=== PATIENT | female | born 1950 | race Caucasian/White ===

== ENCOUNTER → 2017-08-20 | Outpatient (CLI) | payer MEDICARE ==
--- NOTE | 2017-08-20 14:54 | BD ---
EXAMINATION TYPE: Axial Bone Density DATE OF EXAM: 08/20/2017 COMPARISON: NONE CLINICAL HISTORY: Height: 5 FT 1 1/4 IN Weight: 108 FRAX RISK QUESTIONS: History of Fracture in Adulthood: LT WRIST Secondary Osteoporosis: 3. Menopause before 45: YES RISK FACTORS HISTORY OF: History of Wrist Fracture: LT WRIST When: 3 YEARS AGO Postmenopausal woman: UNSURE MEDICATIONS: Additional Medications: CELEXA, RISPIDAL, Additional History: EXAM MEASUREMENTS: Bone mineral densitometry was performed using the [facility]. Bone mineral density as measured about the Lumbar spine is: ----- L1-L4(G/cm2): 0.986 T Score Values are as follows: ----- L2: -2.2 ----- L3: -1.1 ----- L4: -2.0 ----- L1-L4: -1.6 BASELINE Bone mineral density about the R hip (g/cm2): 0.905 Bone mineral density about the L hip (g/cm2): 0.812 T Score values are as follows: -----R Neck: -1.0 -----L Neck: -1.6 -----R Total: -1.7 -----L Total: -2.0 BASELINE IMPRESSION: Osteopenia (T Score between -2.5 and -1). There is slightly increased risk of fracture and the patient may be considered for treatment. Re-Screen 2-5 years. NOTE: T-SCORE=SD OF THE YOUNG ADULT MEAN.
--- NOTE | 2017-08-21 11:03 | MM ---
Reason for exam: screening (asymptomatic). Last mammogram was performed 1 year and 9 months ago. History: Patient is postmenopausal and is nulliparous. Physical Findings: A clinical breast exam by your physician is recommended on an annual basis and results should be correlated with mammographic findings. MG Screening Mammo w CAD Bilateral CC and MLO view(s) were taken. Prior study comparison: December 01, 2015, mammogram. May 11, 2014, mammogram. The breast tissue is extremely dense which could obscure a lesion on mammography. Stable benign calcifications. There is chronic nodularity bilaterally. There is no dominant lesion. No significant changes when compared with prior studies. ASSESSMENT: Benign, BI-RAD 2 RECOMMENDATION: Routine screening mammogram of both breasts in 1 year.
== END | disposition home or self-care (01) ==
LOC: RADMAMWWP 10:39
PROVIDERS: ATTEND Internal Medicine
DX: Z12.31 Encounter for screening mammogram for malignant neoplasm of breast (principal); M85.80 Other specified disorders of bone density and structure, unspecified site; Z78.0 Asymptomatic menopausal state
CPT/HCPCS: 77067; 77080

== ENCOUNTER → 2018-09-10 | Outpatient (CLI) | payer MEDICARE, BC ==
--- NOTE | 2018-09-11 10:26 | MM ---
Reason for exam: screening (asymptomatic). Last mammogram was performed 1 year and 1 month ago. History: Patient is postmenopausal and is nulliparous. Physical Findings: A clinical breast exam by your physician is recommended on an annual basis and results should be correlated with mammographic findings. MG 3D Screening Mammo W/Cad Bilateral CC and MLO view(s) were taken. Prior study comparison: August 20, 2017, bilateral MG screening mammo w CAD. December 01, 2015, mammogram. The breast tissue is heterogeneously dense. This may lower the sensitivity of mammography. There are benign appearing round dystrophic calcifications bilaterally. There is no discrete abnormality. ASSESSMENT: Benign, BI-RAD 2 RECOMMENDATION: Routine screening mammogram of both breasts in 1 year.
== END | disposition home or self-care (01) ==
LOC: RADMAMWWP 09:07
PROVIDERS: ATTEND Internal Medicine
DX: Z12.31 Encounter for screening mammogram for malignant neoplasm of breast (principal)
CPT/HCPCS: 77063; 77067

== ENCOUNTER 2019-09-17 09:12 | Observation (INO) | payer MEDICARE, BC ==
[2019-09-17] MEDS ORDERED: NITROGLYCERIN OINT 1 INCH/GM PACKET TOPICAL STA (09:32)
[2019-09-17] MEDS ORDERED: ASPIRIN 81 MG PO STA (09:32)
--- NOTE | 2019-09-17 09:34 | ED ---
General Adult HPI - General Chief complaint: Chest Pain Stated complaint: Chest pain Time Seen by Provider: 09/17/19 09:20 Source: patient, RN notes reviewed Mode of arrival: ambulatory Limitations: no limitations - History of Present Illness Initial comments: Patient is a pleasant 69-year-old female presenting to the emergency Department with chest discomfort. Symptoms have been intermittent over the past few days. Symptoms are exertional. Patient has pressure in her chest without radiation. Sometimes patient gets a little bit short of breath. No nausea or diaphoresis. No history of similar symptoms previously. No leg pain or leg swelling. Discomfort is mild at this time. - Related Data Home Medications Medication Instructions Recorded Confirmed Budesonide/Formoterol Fumarate 2 puff INHALATION RT-BID 10/13/15 10/13/15 [Symbicort 80-4.5 Mcg Inhaler] Citalopram Hydrobromide [CeleXA] 40 mg PO DAILY 10/13/15 10/13/15 risperiDONE [RisperDAL] 1 mg PO DAILY 10/13/15 10/13/15 Allergies Allergy/AdvReac Type Severity Reaction Status Date / Time clarithromycin [From Biaxin] Allergy Unknown Verified 09/17/19 09:18 Review of Systems ROS Statement: Those systems with pertinent positive or pertinent negative responses have been documented in the HPI. ROS Other: All systems not noted in ROS Statement are negative. Constitutional: Denies: fever Eyes: Denies: eye pain ENT: Denies: ear pain Respiratory: Denies: cough Cardiovascular: Reports: chest pain Endocrine: Denies: fatigue Gastrointestinal: Denies: abdominal pain, nausea Genitourinary: Denies: dysuria Musculoskeletal: Denies: back pain Skin: Denies: rash Neurological: Denies: weakness Past Medical History Past Medical History: Asthma History of Any Multi-Drug Resistant Organisms: None Reported Past Surgical History: Tubal Ligation Past Psychological History: Anxiety, Depression Smoking Status: Never smoker Past Alcohol Use History: Occasional Past Drug Use History: None Reported General Exam Limitations: no limitations General appearance: alert, in no apparent distress Head exam: Present: normocephalic Eye exam: Present: normal appearance Neck exam: Present: normal inspection Respiratory exam: Present: normal lung sounds bilaterally. Absent: chest wall tenderness Cardiovascular Exam: Present: regular rate, normal rhythm Expanded Peripheral pulses: 2+: Radial (R), Radial (L), Dorsalis Pedis (R), Dorsalis Pedis (L) GI/Abdominal exam: Present: soft. Absent: distended, tenderness Extremities exam: Present: normal inspection. Absent: pedal edema, calf tenderness Neurological exam: Present: alert Psychiatric exam: Present: normal affect, normal mood Skin exam: Present: normal color Course Vital Signs 09/17/19 09/17/19 09:14 09:58 Temperature 97.9 F Pulse Rate 102 H 105 H Respiratory 18 20 Rate Blood Pressure 147/77 140/90 O2 Sat by Pulse 98 100 Oximetry EKG Findings - EKG Comments: EKG Findings:: Sinus rhythm at 98. MI 102. QRS 90. QT 344. QTC 439. Normal axis. Normal QRS. No acute ST change. Medical Decision Making - Medical Decision Making Patient reevaluated. Patient updated. Case discussed with Dr. Reyes, who will admit covering for Dr. White - Lab Data Result diagrams: 09/17/19 09:38 09/17/19 09:38 Lab Results 09/17/19 09/17/19 09/17/19 Range/Units 09:38 09:38 09:38 WBC 8.0 (3.8-10.6) k/uL RBC 4.23 (3.80-5.40) m/uL Hgb 12.9 (11.4-16.0) gm/dL Hct 39.0 (34.0-46.0) % MCV 92.3 (80.0-100.0) fL MCH 30.6 (25.0-35.0) pg MCHC 33.2 (31.0-37.0) g/dL RDW 12.4 (11.5-15.5) % Plt Count 388 (150-450) k/uL Neutrophils % 69 % Lymphocytes % 20 % Monocytes % 7 % Eosinophils % 2 % Basophils % 0 % Neutrophils # 5.5 (1.3-7.7) k/uL Lymphocytes # 1.6 (1.0-4.8) k/uL Monocytes # 0.6 (0-1.0) k/uL Eosinophils # 0.1 (0-0.7) k/uL Basophils # 0.0 (0-0.2) k/uL PT 9.4 (9.0-12.0) sec INR 0.9 (<1.2) APTT 25.0 (22.0-30.0) sec D-Dimer 0.56 (<0.60) mg/L FEU Sodium 136 L (137-145) mmol/L Potassium 4.1 (3.5-5.1) mmol/L Chloride 104 (98-107) mmol/L Carbon Dioxide 24 (22-30) mmol/L Anion Gap 8 mmol/L BUN 10 (7-17) mg/dL Creatinine 0.83 (0.52-1.04) mg/dL Est GFR (CKD-EPI)AfAm 84 (>60 ml/min/1.73 sqM) Est GFR (CKD-EPI)NonAf 73 (>60 ml/min/1.73 sqM) Glucose 95 (74-99) mg/dL Calcium 9.6 (8.4-10.2) mg/dL Magnesium 2.1 (1.6-2.3) mg/dL Total Bilirubin 0.6 (0.2-1.3) mg/dL AST 23 (14-36) U/L ALT 11 (4-34) U/L Alkaline Phosphatase 57 (38-126) U/L Troponin I (0.000-0.034) ng/mL Total Protein 7.3 (6.3-8.2) g/dL Albumin 4.2 (3.5-5.0) g/dL 09/17/19 Range/Units 09:38 WBC (3.8-10.6) k/uL RBC (3.80-5.40) m/uL Hgb (11.4-16.0) gm/dL Hct (34.0-46.0) % MCV (80.0-100.0) fL MCH (25.0-35.0) pg MCHC (31.0-37.0) g/dL RDW (11.5-15.5) % Plt Count (150-450) k/uL Neutrophils % % Lymphocytes % % Monocytes % % Eosinophils % % Basophils % % Neutrophils # (1.3-7.7) k/uL Lymphocytes # (1.0-4.8) k/uL Monocytes # (0-1.0) k/uL Eosinophils # (0-0.7) k/uL Basophils # (0-0.2) k/uL PT (9.0-12.0) sec INR (<1.2) APTT (22.0-30.0) sec D-Dimer (<0.60) mg/L FEU Sodium (137-145) mmol/L Potassium (3.5-5.1) mmol/L Chloride (98-107) mmol/L Carbon Dioxide (22-30) mmol/L Anion Gap mmol/L BUN (7-17) mg/dL Creatinine (0.52-1.04) mg/dL Est GFR (CKD-EPI)AfAm (>60 ml/min/1.73 sqM) Est GFR (CKD-EPI)NonAf (>60 ml/min/1.73 sqM) Glucose (74-99) mg/dL Calcium (8.4-10.2) mg/dL Magnesium (1.6-2.3) mg/dL Total Bilirubin (0.2-1.3) mg/dL AST (14-36) U/L ALT (4-34) U/L Alkaline Phosphatase (38-126) U/L Troponin I <0.012 (0.000-0.034) ng/mL Total Protein (6.3-8.2) g/dL Albumin (3.5-5.0) g/dL - Radiology Data Radiology results: image reviewed (Chest x-ray shows no acute process) Disposition Clinical Impression: Chest pain Disposition: ADMITTED IP TO THIS [facility] Is patient prescribed a controlled substance at d/c from ED?: No Referrals: Diego White MD [Primary Care Provider] - 1-2 days Decision Time: 10:52
[2019-09-17 10:07] LABS: Basophils % (A) 0 %; Eosinophils # (A) 0.1 k/uL (0-0.7); Eosinophils % (A) 2 %; HGB 12.9 gm/dL (11.4-16.0); Lymphocytes # (A) 1.6 k/uL (1.0-4.8); Lymphocytes % (A) 20 %; MCH 30.6 pg (25.0-35.0); MCHC 33.2 g/dL (31.0-37.0); MCV 92.3 fL (80.0-100.0); Monocytes # (A) 0.6 k/uL (0-1.0); Monocytes % (A) 7 %; Neutrophils # (A) 5.5 k/uL (1.3-7.7); Neutrophils % (A) 69 %; Platelet Count 388 k/uL (150-450); RBC 4.23 m/uL (3.80-5.40); RDW 12.4 % (11.5-15.5)
--- NOTE | 2019-09-17 10:20 | XR ---
EXAMINATION TYPE: XR chest 2V DATE OF EXAM: 09/17/2019 COMPARISON: NONE HISTORY: Chest pain this morning. TECHNIQUE: Frontal and lateral views of the chest are obtained. FINDINGS: Overlying EKG leads are present. There is some chronic medical change without suspicious ne w focal air space opacity, pleural effusion, or pneumothorax seen. The cardiac silhouette size is wi thin normal limits. The osseous structures are somewhat demineralized. IMPRESSION: No acute process.
[2019-09-17 10:22] LABS: Albumin 4.2 g/dL (3.5-5.0); Calcium 9.6 mg/dL (8.4-10.2); Magnesium 2.1 mg/dL (1.6-2.3); Potassium 4.1 mmol/L (3.5-5.1); Total Bilirubin 0.6 mg/dL (0.2-1.3); Total Protein 7.3 g/dL (6.3-8.2)
[2019-09-17 10:37] LABS: D-Dimer 0.56 mg/L FEU (<0.60); INR 0.9 (<1.2); Prothrombin Time 9.4 sec (9.0-12.0)
[2019-09-17] MEDS ORDERED: NITROGLYCERIN SL TABS 0.4 MG TAB SUBLINGUAL PRN (10:52)
[2019-09-17] MEDS ORDERED: ALBUTEROL NEBULIZED 2.5 MG/3 ML INHALATION PRN (12:20)
[2019-09-17] MEDS ORDERED: ACETAMINOPHEN TAB 325 MG TAB PO PRN (12:21)
--- NOTE | 2019-09-17 12:32 | P.HPIM ---
History of Present Illness H&P Date: 09/17/19 Chief Complaint: Chest pain This is a 69-year-old female with past medical history noted below who presented to the emergency room with chest pain. Patient said that her pain is being going on for the past 2 or 3 days. She described her pain as intermittent and mostly exertional. Pain is in the middle of her chest with no radiation. It is associated with shortness of breath but no diaphoresis, palpitation, or presyncope. Patient denies having any cardiac history. She reported having a stress test done 2 years ago that was reported negative. She is currently chest pain-free. She was evaluated in the emergency room and 12-lead EKG showed no acute ischemic changes. Initial troponin was negative. She is currently placed on observation. Patient denies tobacco use. Review of Systems Review of system: 14 points review of systems were obtained and were negative except to what were mentioned in the HPI. Past Medical History Past Medical History: Asthma History of Any Multi-Drug Resistant Organisms: None Reported Past Surgical History: Tubal Ligation Past Psychological History: Anxiety, Depression Smoking Status: Never smoker Past Alcohol Use History: Occasional Past Drug Use History: None Reported Medications and Allergies Home Medications Medication Instructions Recorded Confirmed Type Budesonide/Formoterol Fumarate 2 puff INHALATION RT-BID 10/13/15 09/17/19 History [Symbicort 80-4.5 Mcg Inhaler] Citalopram Hydrobromide [CeleXA] 40 mg PO DAILY 10/13/15 09/17/19 History risperiDONE [RisperDAL] 1 mg PO DAILY 10/13/15 09/17/19 History Albuterol Sulfate [Proair Hfa] 2 puff INHALATION RT-Q6H PRN 09/17/19 09/17/19 History Allergies Allergy/AdvReac Type Severity Reaction Status Date / Time clarithromycin [From Biaxin] Allergy Unknown Verified 09/17/19 11:05 Physical Exam Vitals: Vital Signs Temp Pulse Resp BP Pulse Ox 09/17/19 11:00 111 H 18 134/81 100 09/17/19 10:30 105 H 18 123/70 100 09/17/19 09:58 105 H 20 140/90 100 09/17/19 09:30 105 H 18 100 09/17/19 09:14 97.9 F 102 H 18 147/77 98 Intake and Output 09/16/19 09/17/19 09/17/19 22:59 06:59 14:59 Other: Weight 46.402 kg General: The patient is awake and alert, in no distress Eye: there is normal conjunctiva bilaterally. Neck: The neck is supple, there is no JVD. Cardiovascular: Normal S1-S2, no S3-S4, no murmurs. Respiratory: Lungs clear to auscultation bilaterally Gastrointestinal: Abdomen is soft, nontender Musculoskeletal: There is no pedal edema. Neurological:. Speech is normal. Skin: Skin is warm and dry Results CBC & Chem 7: 09/17/19 09:38 09/17/19 09:38 Labs: Abnormal Lab Results - Last 24 Hours (Table) 09/17/19 Range/Units 09:38 Sodium 136 L (137-145) mmol/L Assessment and Plan Assessment: 1. Chest pain, with typical and atypical features. 12 leads EKG in the ER showed no acute ischemic changes. Initial troponin is negative. We will c ontinue telemetry monitoring. Trend troponin. Cardiology consulted in the ER. May consider cardiac stress testing in the morning. 2. Hyperlipidemia, diet controlled. I would check fasting lipid profile in the morning 3. Underlying asthma, with no evidence of exacerbation 4. DVT prophylaxis with subcu heparin
[2019-09-17] MEDS: NITROGLYCERIN OINT 1 INCH/GM PACKET TOPICAL SCH ×2 (12:34→17:49)
--- NOTE | 2019-09-17 13:17 | P.CRDCN ---
History of Present Illness History of present illness: HISTORY OF PRESENTING ILLNESS This is a pleasant 69-year-old female past medical history significant for asthma, gastroesophageal reflux disease, anxiety and depression. She denies prior history of coronary artery disease and does not follow in the office with a header up. We have been asked to see in consultation for chest pain. She presented to Dr. White's office today complaining of chest discomfort that has been going on for the past couple of days. She states she is feeling a sharp stabbing pain in the midsternal region intermittently it is not associated with exertion or activity. The pain is mildly exacerbated by deep inspiration or cough. She denies productive cough or fever home. She also has some associated shortness of breath that is worsened by exertion. She denies palpitations, dizziness, nausea, vomiting or diaphoresis. She is extremely anxious and agitated during my exam. She is very tearful and scared of being in the hospital. DIAGNOSTICS EKG reveals sinus mechanism heart rate of 98 with no evidence of ischemic abnormality. Chest xray negative for an acute cardiopulmonary process. Laboratory reviewed, CBC unremarkable, d-dimer 0.56, sodium 136, potassium 4.1, creatinine 0.83, magnesium 2.1, cardiac enzymes negative 1, NT proBNP 33. She takes no daily cardiac medications. REVIEW OF SYSTEMS At the time of my exam: CONSTITUTIONAL: Denies fever or chills. CARDIOVASCULAR: Denies chest pain, shortness of breath, orthopnea, PND or palpitations. RESPIRATORY: Denies cough. GASTROINTESTINAL: Denies abdominal pain, diarrhea, constipation, nausea or vomiting. MUSCULOSKELETAL: Denies myalgias. NEUROLOGIC: Denies numbness, tingling or weakness. ENDOCRINE: Denies fatigue, weight change, polydipsia or polyurina. GENITOURINARY: Denies burning, hematuria or urgency with micturation. HEMATOLOGIC: Denies history of anemia or bleeding. PHYSICAL EXAMINATION Blood pressure 134/81 heart rate 111 afebrile and maintaining oxygen saturation on room air. CONSTITUTIONAL: No apparent distress. Frail. HEENT: Head is normocephalic. Pupils are equal, round. Sclerae anicteric. Mucous membranes of the mouth are moist. No JVD. No carotid bruit. CHEST EXAMINATION: Lungs are clear to auscultation. No chest wall tenderness is noted on palpation or with deep breathing. HEART EXAMINATION: Regular rate and rhythm. S1, S2 heard. No murmurs, gallops or rub. ABDOMEN: Soft, nontender. Positive bowel sounds. EXTREMITIES: 2+ peripheral pulses, no lower extremity edema and no calf tenderness. NEUROLOGIC EXAMINATION: Patient is awake, alert and oriented x3. ASSESSMENT Chest pain, atypical for angina. Exertional shortness of breath History of asthma Gastroesophageal reflux disease Anxiety Impression PLAN Continue to obtain serial cardiac enzymes to rule out an acute event. Obtain 2D echocardiogram and doppler study to assess cardiac structure and function. Check TSH. If enzymes are normal we will proceed with stress echocardiogram in the morning. Give protonix to assess for relief of pain. Thank you kindly for this consultation. Nurse Practitioner note has been reviewed, I agree with a documented findings and plan of care. Patient was seen and examined. Past Medical History Past Medical History: Asthma, GERD/Reflux, Pneumonia Additional Past Medical History / Comment(s): Bronchitis, small hiatal hernia, constipation, IBS, occasional UTIs, chronic back pain. History of Any Multi-Drug Resistant Organisms: None Reported Past Surgical History: Tonsillectomy, Tubal Ligation Additional Past Surgical History / Comment(s): EGD, colonoscopies Past Anesthesia/Blood Transfusion Reactions: No Reported Reaction Smoking Status: Never smoker - Past Family History Mother History Unknown: Yes Additional Family Medical History / Comment(s): Mother is Father History Unknown: Yes Additional Family Medical History / Comment(s): Father is . Medications and Allergies Home Medications Medication Instructions Recorded Confirmed Type Budesonide/Formoterol Fumarate 2 puff INHALATION RT-BID 10/13/15 09/17/19 History [Symbicort 80-4.5 Mcg Inhaler] Citalopram Hydrobromide [CeleXA] 40 mg PO DAILY 10/13/15 09/17/19 History risperiDONE [RisperDAL] 1 mg PO DAILY 10/13/15 09/17/19 History Albuterol Sulfate [Proair Hfa] 2 puff INHALATION RT-Q6H PRN 09/17/19 09/17/19 History Allergies Allergy/AdvReac Type Severity Reaction Status Date / Time clarithromycin [From Biaxin] Allergy Unknown Verified 09/17/19 11:05 Physical Exam Vitals: Vital Signs Temp Pulse Resp BP Pulse Ox 09/17/19 11:00 111 H 18 134/81 100 09/17/19 10:30 105 H 18 123/70 100 09/17/19 09:58 105 H 20 140/90 100 09/17/19 09:30 105 H 18 100 09/17/19 09:14 97.9 F 102 H 18 147/77 98 Intake and Output 09/16/19 09/17/19 09/17/19 22:59 06:59 14:59 Other: Weight 46.402 kg Results 09/17/19 09:38 09/17/19 09:38 Cardiac Enzymes 09/17/19 09/17/19 Range/Units 09:38 09:38 AST 23 (14-36) U/L Troponin I <0.012 (0.000-0.034) ng/mL Coagulation 09/17/19 Range/Units 09:38 PT 9.4 (9.0-12.0) sec APTT 25.0 (22.0-30.0) sec CBC 09/17/19 Range/Units 09:38 WBC 8.0 (3.8-10.6) k/uL RBC 4.23 (3.80-5.40) m/uL Hgb 12.9 (11.4-16.0) gm/dL Hct 39.0 (34.0-46.0) % Plt Count 388 (150-450) k/uL Comprehensive Metabolic Panel 09/17/19 Range/Units 09:38 Sodium 136 L (137-145) mmol/L Potassium 4.1 (3.5-5.1) mmol/L Chloride 104 (98-107) mmol/L Carbon Dioxide 24 (22-30) mmol/L BUN 10 (7-17) mg/dL Creatinine 0.83 (0.52-1.04) mg/dL Glucose 95 (74-99) mg/dL Calcium 9.6 (8.4-10.2) mg/dL AST 23 (14-36) U/L ALT 11 (4-34) U/L Alkaline Phosphatase 57 (38-126) U/L Total Protein 7.3 (6.3-8.2) g/dL Albumin 4.2 (3.5-5.0) g/dL Current Medications Generic Name Dose Route Start Last Admin Trade Name Freq PRN Reason Stop Dose Admin Acetaminophen 650 mg 09/17/19 12:21 Tylenol Tab PO Q6HR PRN Fever and/ or Pain Albuterol Sulfate 2.5 mg 09/17/19 12:20 Ventolin Nebulized INHALATION RT-Q6H PRN Shortness Of Breath Aspirin 325 mg 09/18/19 09:00 Aspirin PO DAILY [facility] Budesonide/Formoterol Fumarate 2 puff 09/17/19 20:00 Symbicort 80-4.5 Mcg Inhaler INHALATION RT-BID [facility] Citalopram Hydrobromide 40 mg 09/18/19 09:00 Celexa PO DAILY [facility] Heparin Sodium (Porcine) 5,000 unit 09/17/19 21:00 Heparin SQ Q12HR [facility] Nitroglycerin 0.4 mg 09/17/19 10:52 Nitrostat SUBLINGUAL Q5M PRN Chest Pain Nitroglycerin 0.5 inch 09/17/19 12:00 09/17/19 12:34 Nitro-Bid Oint TOPICAL Not Given Q6HR [facility] Risperidone 1 mg 09/18/19 09:00 Risperdal PO DAILY [facility] Intake and Output 09/16/19 09/17/19 09/17/19 22:59 06:59 14:59 Other: Weight 46.402 kg Patient Weight 09/18/19 06:59 Weight 46.402 kg 09/17/19 09:38 09/17/19 09:38
[2019-09-17] MEDS: PANTOPRAZOLE 40 MG TABLET PO SCH (14:29)
[2019-09-17 15:25] VITALS: BMI 18.7
[2019-09-17] MEDS: SYMBICORT 80-4.5 MCG INHALER INHALATION SCH (20:39)
[2019-09-17] MEDS: HEPARIN SODIUM,PORCINE 5,000 UNIT/ML 1 ML VIAL SQ SCH (21:18)
[2019-09-18] MEDS: NITROGLYCERIN OINT 1 INCH/GM PACKET TOPICAL SCH ×3 (00:43→13:03)
[2019-09-18 02:49] LABS: Cholesterol 161 mg/dL (<200); HDL Cholesterol 55 mg/dL (40-60); LDL Cholesterol,Calculated 86 mg/dL (0-99); Triglycerides 99 mg/dL (<150)
[2019-09-18] MEDS: SYMBICORT 80-4.5 MCG INHALER INHALATION SCH (07:39)
[2019-09-18] MEDS: PANTOPRAZOLE 40 MG TABLET PO SCH (08:44)
[2019-09-18] MEDS: HEPARIN SODIUM,PORCINE 5,000 UNIT/ML 1 ML VIAL SQ SCH (08:45)
[2019-09-18] MEDS ORDERED: ASPIRIN 81 MG PO SCH (09:00)
[2019-09-18] MEDS ORDERED: risperiDONE 1 MG TAB PO SCH (09:00)
[2019-09-18] MEDS ORDERED: ASPIRIN 325 MG TAB PO SCH (09:00)
[2019-09-18] MEDS ORDERED: CITALOPRAM HYDROBROMIDE 20 MG TAB PO SCH (09:00)
--- NOTE | 2019-09-18 10:49 | ECHOF ---
Referral Reason:cp, exertional sob MEASUREMENTS -------- HEIGHT: 157.5 cm WEIGHT: 46.3 kg BP: IVSd: 1.6 cm (0.6 - 1.1) LVIDd: 2.8 cm (3.9 - 5.3) LVPWd: 1.4 cm (0.6 - 1.1) IVSs: 1.8 cm LVIDs: 1.8 cm LVPWs: 1.9 cm LAESV Index (A-L): 16.74 ml/m Ao Diam: 3.2 cm (2.0 - 3.7) AV Cusp: 1.9 cm (1.5 - 2.6) MV EXCURSION: 18.525 mm (> 18.000) MV EF SLOPE: 57 mm/s (70 - 150) EPSS: 0.3 cm MV E Leonel: 0.69 m/s MV DecT: 253 ms MV A Leonel: 0.94 m/s MV E/A Ratio: 0.73 RAP: 5.00 mmHg RVSP: 29.14 mmHg FINDINGS -------- This was a technically adequate study. The left ventricular size is normal. There is moderate concentric left ventricular hypertrophy. O verall left ventricular systolic function is normal with, an EF between 55 - 60 %. The diastolic fi lling pattern is normal for the age of the patient 13.37. The right ventricle is normal in size. Normal LA size by volume 22+/-6 ml/m2. The right atrial size is normal. Interatrial and interventricular septum intact. The aortic valve is trileaflet and appears structurally normal. There is no evidence of aortic regu rgitation. There is no evidence of aortic stenosis. No mitral regurgitation. Mild tricuspid regurgitation present. There is no evidence of pulmonary hypertension. The right v entricular systolic pressure, as measured by Doppler, is 29.14mmHg. There is no pulmonic regurgitation present. The aortic root size is normal. IVC Not well visulized. There is no pericardial effusion. CONCLUSIONS -------- 1. This was a technically adequate study. 2. The left ventricular size is normal. 3. There is moderate concentric left ventricular hypertrophy. 4. Overall left ventricular systolic function is normal with, an EF between 55 - 60 %. 5. The diastolic filling pattern is normal for the age of the patient 13.37 6. The right ventricle is normal in size. 7. Normal LA size by volume 22+/-6 ml/m2. 8. The right atrial size is normal. 9. Interatrial and interventricular septum intact. 10. The aortic valve is trileaflet and appears structurally normal. 11. There is no evidence of aortic regurgitation. 12. There is no evidence of aortic stenosis. 13. No mitral regurgitation. 14. Mild tricuspid regurgitation present. 15. There is no evidence of pulmonary hypertension. 16. The right ventricular systolic pressure, as measured by Doppler, is 29.14mmHg. 17. There is no pulmonic regurgitation present. 18. The aortic root size is normal. 19. IVC Not well visulized. 20. There is no pericardial effusion. LEAD OPERATOR: Nemo Higgins RDCS
[2019-09-18 12:59] VITALS: BP 130/58; PULSE 92; RESP 18; TEMP 98.1
--- NOTE | 2019-09-18 13:15 | P.STRESS ---
- Stress Test Note Stress Test Results/Findings: Exam Performed: stress echo exercise Exam Date: 09/18/19 Reason for Exam: Chest Pain Height: 5 ft 2 in Weight: 44.7 kg Protocol: Kenneth with modification Stage: 2 Duration of Exercise: 4:11 Resting Heart Rate: 93 Resting Blood Pressure: 111/65 Maximum Achieved Heart Rate: 132 Maximum Achieved Blood Pressure: 158/78 85% PMHR: 129 100% PMHR: 152 METS: 5.4 Technologist Comment: Stress Test Results/Findings: This is a 69-year-old female was admitted to the hospital with chest pains and shortness of breath, being evaluated for cardiac status. Stress data: Baseline EKG shows sinus rhythm with normal TN and cardiac catheterization with nonspecific ST-T changes. Patient workup was protocol for about 4 minutes and 18 seconds achieving a maximum heart rate of 132 with a peak blood pressure 158/78. EKGs taken during exercise and exercise showed continued nonspecific ST-T changes. Echo data: Baseline echo images showed normal wall motion and thickening. Exercise echo images showed augmentation of wall motion and thickening in all segments. Final impression: #1. Nondiagnostic stress test because of baseline EKG abnormalities. #2. Negative stress echo
--- NOTE | 2019-09-18 14:18 | ECHOS ---
Stress Test Results/Findings: Exam Performed: stress echo exercise Exam Date: 09/18/19 Reason for Exam: Chest Pain Height: 5 ft 2 in Weight: 44.7 kg Protocol: Kenneth with modification Stage: 2 Duration of Exercise: 4:11 Resting Heart Rate: 93 Resting Blood Pressure: 111/65 Maximum Achieved Heart Rate: 132 Maximum Achieved Blood Pressure: 158/78 85% PMHR: 129 100% PMHR: 152 METS: 5.4 Technologist Comment: Stress Test Results/Findings: This is a 69-year-old female was admitted to the hospital with chest pains and shortness of breath, being evaluated for cardiac status. Stress data: Baseline EKG shows sinus rhythm with normal PA and cardiac catheterization with nonspecific ST-T changes. Patient workup was protocol for about 4 minutes and 18 seconds achieving a maximum heart rate of 132 with a peak blood pressure 158/78. EKGs taken during exercise and exercise showed continued nonspecific ST-T changes. Echo data: Baseline echo images showed normal wall motion and thickening. Exercise echo images showed augmentation of wall motion and thickening in all segments. Final impression: #1. Nondiagnostic stress test because of baseline EKG abnormalities. #2. Negative stress echo MTDD
--- NOTE | 2019-09-18 15:36 | P.PN ---
Subjective Progress Note Date: 09/18/19 This patient is admitted to the hospital with chest pain and shortness of breath. Had a stress echo cardiogram today. The stress test is negative for ischemia. Patient could be discharged home. Follow-up as an outpatient Objective - Vital Signs Vital signs: Vital Signs Temp 98.1 F 09/18/19 12:00 Pulse 92 09/18/19 12:00 Resp 18 09/18/19 12:00 BP 130/58 09/18/19 12:00 Pulse Ox 97 09/18/19 12:00 Intake & Output 09/17/19 09/18/19 09/18/19 18:59 06:59 18:59 Intake Total 250 Balance 250 Weight 46.402 kg 44.7 kg Intake: Oral 250 Other: Voiding Method Toilet Toilet # Voids 0 1 1 # Bowel Movements 1 - Exam GENERAL EXAM: Patient is alert and oriented and doesn't appear to be in any acute distress HEENT: Normocephalic. Normal reaction of pupils, equal size, normal range of extraocular motion. No erythema or exudates in the throat. NECK: No masses, no nuchal rigidity. CHEST: No chest wall deformity. LUNGS: Equal air entry with no crackles or wheeze. HEART: S1 and S2 normal with no audible mumurs or gallops. Regular rhythm, femorals equal on both sides.. ABDOMEN: No hepatosplenomegaly, normal bowel sounds, no guarding or rigidity. SKIN: No rashes CENTRAL NERVOUS SYSTEM: No focal deficits. EXTREMITIES: [No cyanosis, clubbing or edema.] - Labs CBC & Chem 7: 09/17/19 09:38 09/17/19 09:38 Assessment and Plan (1) Chest pain Current Visit: Yes Status: Acute Code(s): R07.9 - CHEST PAIN, UNSPECIFIED SNOMED Code(s): 54312684 Plan: Patient is currently stable. Stress echo is negative. From Cardec standpoint patient could be discharged home
--- NOTE | 2019-09-18 15:52 | P.DS ---
Providers Date of admission: 09/17/19 10:52 Expected date of discharge: 09/18/19 Attending physician: Nathan Courtney Consults: 09/17/19 10:52 Consult Physician Urgent Consulting Provider: Anthony Zaidi Consult Reason/Comments: cp Do you want consulting provider notified?: Yes Primary care physician: Diego [facility] Course: The patient is a 69-year-old female with a PMH of asthma who presented to the ED with complaints of chest pain. The patient had reported the pain was ongoing for 2 or 3 days, was intermittent, exertional, in the center of her chest, nonradiating. The patient also reported associated shortness of breath though had denied palpitations, or diaphoresis. The patient was subsequently admitted to the observation unit with cardiology on consult. She underwent a stress echocardiogram which was negative for ischemia. She was subsequently cleared by cardiology for discharge. She was seen and evaluated at the bedside on the day of discharge. She reported only minimal of substernal sharp pleuritic pain and denied pain at rest or exertional pain. She also denied any additional complaints including shortness of breath, nausea, vomiting, diaphoresis, or dizziness. She is ready and agreeable for discharge to home. Physical Examination General: Non-toxic, in no acute distress, appears stated age, normal weight HEENT: NC/AT, anicteric sclerae, moist conjunctiva, no lid-lag, PERRLA Cardiovascular: S1/S2 wnl, no murmurs, rubs, or gallops Lungs: Clear to auscultation, normal respiratory effort, no accessory muscle use Abdominal: Soft, non-tender, non-distended, no guarding, rebound, or rigidity Skin: Warm, dry Extremities: No edema or contractures Psychiatric: Alert and oriented to person, place and time, appropriate affect Neuro: CN II-XII grossly intact, Strength 5/5 in all 4 extremities, Speech intact, Sensation to light touch grossly intact throughout Discharge diagnosis: Atypical chest pain with negative stress echocardiogram; hyperlipidemia; asthma; history of anxiety and depression A total of 30 minutes of time were spent preparing this complex discharge summary. Patient Condition at Discharge: Stable Plan - Discharge Summary Discharge Rx Participant: No New Discharge Prescriptions: Continue risperiDONE [RisperDAL] 1 mg PO DAILY Citalopram Hydrobromide [CeleXA] 40 mg PO DAILY Budesonide/Formoterol Fumarate [Symbicort 80-4.5 Mcg Inhaler] 2 puff INHALATION RT-BID Albuterol Sulfate [Proair Hfa] 2 puff INHALATION RT-Q6H PRN PRN Reason: Shortness Of Breath Discharge Medication List Budesonide/Formoterol Fumarate [Symbicort 80-4.5 Mcg Inhaler] 2 puff INHALATION RT-BID 10/13/15 [History] Citalopram Hydrobromide [CeleXA] 40 mg PO DAILY 10/13/15 [History] risperiDONE [RisperDAL] 1 mg PO DAILY 10/13/15 [History] Albuterol Sulfate [Proair Hfa] 2 puff INHALATION RT-Q6H PRN 09/17/19 [History] Follow up Appointment(s)/Referral(s): Diego White MD [Primary Care Provider] - 1-2 days Discharge Disposition: HOME SELF-CARE
== END 2019-09-18 16:34 | disposition home or self-care (01) ==
LOC: EC 09:12 → 1SOBS 10:52
PROVIDERS: ADMIT Internal Medicine; ATTEND Internal Medicine
DX: R07.89 Other chest pain (principal); R07.81 Pleurodynia; R45.1 Restlessness and agitation; J45.909 Unspecified asthma, uncomplicated; F41.9 Anxiety disorder, unspecified; F32.9 Major depressive disorder, single episode, unspecified; E78.5 Hyperlipidemia, unspecified; K59.00 Constipation, unspecified; K58.1 Irritable bowel syndrome with constipation; G89.29 Other chronic pain; M54.9 Dorsalgia, unspecified; K21.9 Gastro-esophageal reflux disease without esophagitis; Z79.51 Long term (current) use of inhaled steroids; Z79.899 Other long term (current) drug therapy; Z88.1 Allergy status to other antibiotic agents; Z87.01 Personal history of pneumonia (recurrent); Z87.09 Personal history of other diseases of the respiratory system; Z87.440 Personal history of urinary (tract) infections; Z20.828 Contact with and (suspected) exposure to other viral communicable diseases
CPT/HCPCS: 96372 ×2; 99285; 36415; 94640 ×2; 93005 ×2; 93306; 93351; 85379; 83880; 80061; 80053; 84443; 83735; 84484; 85025; 85610; 85730; 71046; G0378 ×2; U0003; J1644 ×2

== ENCOUNTER → 2020-02-03 | Outpatient (CLI) | payer MEDICARE, BC ==
--- NOTE | 2020-02-03 12:29 | CT ---
EXAMINATION TYPE: CT brain cspine wo con DATE OF EXAM: 02/03/2020 COMPARISON: NONE HISTORY: Osteoarthritis. Headache. CT DLP: 1299 mGycm. Automated Exposure Control for Dose Reduction was Utilized. TECHNIQUE: CT scan of the head and cervical spine are performed without contrast. FINDINGS: There is no acute intracranial hemorrhage or midline shift identified. Diffuse ventricula r and sulcal prominence. Mild low-attenuation in the periventricular white matter. The globes are in tact and the visualized sinuses are clear. Overlying oxygen nasal cannula noted. Patchy cerumen in th e left external auditory canal. Cervical spine is visualized in its entirety from C1 through upper thoracic levels and demonstrates s light dextroconvexed scoliotic curvature centered lower cervical spine and reactive levoconvex scolio tic curvature in the visualized thoracic spine without evidence of acute fracture or dislocation. Pr evertebral soft tissue appears within normal limits. The C1-C2 articulation is within normal limits on the coronal images. Slight grade 1 retrolisthesis C5 on C6. Mild to moderate disc space narrowing and spurring at C5-C6 level. Posterior spurring effaces anterior thecal sac at this level. Review of axial images shows additional marginal spurring at C5-C6 level contributing to moderate left and mild right-sided neural foraminal narrowing. Other cervical levels felt within normal limits. Lung apices show incidental azygos lobe/fissure and 4 x 2 mm scar or scarlike opacity left upper lung axial imag e 80. IMPRESSION: 1. There is spondylolisthesis and fairly moderate degenerative change C5-C6 level as detailed above. 2. Mild diffuse cerebral atrophy and chronic small vessel ischemic change.
--- NOTE | 2020-02-03 12:32 | CT ---
EXAMINATION TYPE: CT thor lumbar spine wo con DATE OF EXAM: 02/03/2020 COMPARISON: None. HISTORY: Osteoarthritis. Mid and low back pain. CT DLP: 588.7 mGycm Automated exposure control for dose reduction was used. CT of the thoracic and lumbar spine are perfo rmed without contrast. FINDINGS: There are 5 lumbar-type vertebra. Alignment in the thoracic and lumbar spine is fairly well maintaine d. Vertebral body heights and disc space heights are preserved. Spinal canal is grossly preserved. No significant spurring is present. No acute fracture or dislocation. Axial images in the thoracic spine show no large disc herniation or significant spinal canal effaceme nt at any level. Review of axial images shows mild broad disc bulge and facet arthropathy L3-L4 level mildly effacing the anterior thecal sac. Axial images at L4-L5 level show mild/moderate broad-based posterior disc protrusion and mild/moderat e facet arthropathy bilaterally mildly effacing the anterior thecal sac, there is mild bilateral ante rior inferior neural foraminal narrowing. Axial images at L5-S1 level show mild to moderate facet arthropathy. There is focal central disc prot rusion but spinal canal is preserved. Patent bilateral neural foramina. Scattered diverticula are seen in the visualized colon. There is focal small to moderate size hiatal hernia present. IMPRESSION: Some [id number] multilevel degenerative changes in the mid to lower lumbar spine.
== END | disposition home or self-care (01) ==
LOC: RADCTMAIN 11:33
PROVIDERS: ATTEND Internal Medicine
DX: R51.9 Headache, unspecified (principal); M19.90 Unspecified osteoarthritis, unspecified site; W19.XXXA Unspecified fall, initial encounter; M43.12 Spondylolisthesis, cervical region; I67.82 Cerebral ischemia
CPT/HCPCS: 70450; 72125; 72128; 72131

== ENCOUNTER → 2020-05-03 | Outpatient (CLI) | payer MEDICARE, BC | END | disposition home or self-care (01) | LOC: LABWHC1 15:37 | PROVIDERS: ATTEND Internal Medicine | DX: Z20.822 Contact with and (suspected) exposure to COVID-19 (principal) | CPT/HCPCS: U0003; C9803 ==

== ENCOUNTER → 2020-08-01 | Outpatient (CLI) | payer MEDICARE, BC ==
--- NOTE | 2020-08-01 14:08 | US ---
EXAMINATION TYPE: US carotid duplex BILAT DATE OF EXAM: 08/01/2020 COMPARISON: NONE CLINICAL HISTORY: R55 DIZZINESS. EXAM MEASUREMENTS: RIGHT: Peak Systolic Velocity (PSV) cm/sec ----- Right CCA: 91.1 ----- Right ICA: 88.2 ----- Right ECA: 68.9 ICA/CCA ratio: 0.96 RIGHT: End Diastole cm/sec ----- Right CCA: 29.9 ----- Right ICA: 30.6 ----- Right ECA: 13.7 LEFT: Peak Systolic Velocity (PSV) cm/sec ----- Left CCA: 88.8 ----- Left ICA: 83.5 ----- Left ECA: 73.2 ICA/CCA ratio: 0.94 LEFT: End Diastole cm/sec ----- Left CCA: 22.6 ----- Left ICA: 29.9 ----- Left ECA: 11.5 VERTEBRALS (direction of flow): Right Vertebral: Antegrade Left Vertebral: Antegrade Rhythm: Normal No obvious atherosclerotic changes with no significant velocity elevations. IMPRESSION: 1. No significant hemodynamic stenosis. Criteria for Assigning % of Stenosis / Diameter reduction (Estimation based on the indirect measurements of the internal carotid artery velocities (ICA PSV). 1. Normal (no stenosis)=ICA PSV < 125 cm/s: ratio < 2.0: ICA EDV<40 cm/s. 2. Less than 50% stenosis=ICA PSV < 125 cm/s: ratio < 2.0: ICA EDV<40 cm/s. 3. 50 to 69% stenosis=ICA PSV of 125 to 230 cm/s: ration 2.0 ? 4.0: ICA EDV 40-100 cm/s. 4. Greater than 70% stenosis to near occlusion= ICA PSV > 230 cm/s: ratio > 4.0: ICA EDV > 100 cm/s. 5. Near occlusion= ICA PSV velocities may be low or undetectable: variable ratio and ICA EDV. 6. Total occlusion=unable to detect flow.
--- NOTE | 2020-08-01 14:55 | CT ---
EXAMINATION TYPE: CT brain wo con DATE OF EXAM: 08/01/2020 COMPARISON: 02/03/2020 HISTORY: dizziness CT DLP: 926.5 mGycm Automated exposure control for dose reduction was used. FINDINGS: Generalized degenerative change of the greater frontal lobe component. Low-attenuation the white lakshmi er is nonspecific but most typical remote white matter ischemia. There is slightly greater central di lation of the ventricular system. Tiny remote lacunar infarct involving the right basal ganglia. Calvarium intact. Craniocervical junction maintained. Orbits are symmetric. No significant changes of sinusitis IMPRESSION: 1. Degenerative and nonspecific white matter change of the greater frontal lobe component. There also slightly greater central component correlate clinically to exclude normal pressure hydrocephalus. 2. Low-attenuation the white matter most typical remote white matter ischemia.
--- NOTE | 2020-08-02 07:47 | ECHOF ---
Referral Reason:R55.9 dizziness MEASUREMENTS -------- HEIGHT: 157.5 cm WEIGHT: 43.5 kg BP: 124/72 RVIDd: 2.7 cm (< 3.3) IVSd: 1.0 cm (0.6 - 1.1) LVIDd: 3.7 cm (3.9 - 5.3) LVPWd: 0.8 cm (0.6 - 1.1) IVSs: 1.6 cm LVIDs: 2.0 cm LVPWs: 1.4 cm LA Diam: 2.6 cm (2.7 - 3.8) LAESV Index (A-L): 13.06 ml/m Ao Diam: 2.8 cm (2.0 - 3.7) AV Cusp: 1.7 cm (1.5 - 2.6) MV EXCURSION: 16.074 mm (> 18.000) MV EF SLOPE: 93 mm/s (70 - 150) EPSS: 1.3 cm MV E Leonel: 0.74 m/s MV DecT: 217 ms MV A Leonel: 1.00 m/s MV E/A Ratio: 0.74 RAP: 5.00 mmHg RVSP: 20.18 mmHg FINDINGS -------- Sinus rhythm. This was a technically adequate study. The left ventricular size is normal. Left ventricular wall thickness is normal. Overall left vent ricular systolic function is normal with, an EF between 55 - 60 %. The diastolic filling pattern is normal for the age of the patient 9.13. The right ventricle is normal in size. Normal LA size by volume 22+/-6 ml/m2. The right atrial size is normal. Interatrial and interventricular septum intact. The aortic valve is trileaflet, and appears structurally normal. No aortic stenosis or regurgitation. The mitral valve is normal. Mild mitral regurgitation is present. The tricuspid valve appears structurally normal. Mild tricuspid regurgitation present. Right vent ricular systolic pressure is normal at < 35 mmHg. There is no pulmonic regurgitation present. The aortic root size is normal. Normal inferior vena cava with normal inspiratory collapse consistent with estimated right atrial pre ssure of 5 mmHg. There is no pericardial effusion. CONCLUSIONS -------- 1. Left ventricular wall thickness is normal. 2. Overall left ventricular systolic function is normal with, an EF between 55 - 60 %. 3. Normal LA size by volume 22+/-6 ml/m2. 4. The aortic valve is trileaflet, and appears structurally normal. No aortic stenosis or regurgitati on. 5. Mild mitral regurgitation is present. 6. Mild tricuspid regurgitation present. 7. There is no pericardial effusion. PUNCH OPERATOR: Margarette Toro RDCS
== END | disposition home or self-care (01) ==
LOC: RADUSWWP 13:20
PROVIDERS: ATTEND Internal Medicine
DX: I67.82 Cerebral ischemia (principal); R90.82 White matter disease, unspecified
CPT/HCPCS: 70450; 93306; 93880

== ENCOUNTER → 2021-02-21 | Outpatient (CLI) | payer MEDICARE, BC ==
--- NOTE | 2021-02-22 10:35 | MM ---
Reason for exam: screening (asymptomatic). Last mammogram was performed 2 years and 5 months ago. History: Patient is postmenopausal and is nulliparous. Physical Findings: A clinical breast exam by your physician is recommended on an annual basis and results should be correlated with mammographic findings. MG 3D Screening Mammo W/Cad Bilateral CC and MLO view(s) were taken. Prior study comparison: September 10, 2018, bilateral MG 3d screening mammo w/cad. August 20, 2017, bilateral MG screening mammo w CAD. The breast tissue is heterogeneously dense. This may lower the sensitivity of mammography. Stable benign calcifications. There is no discrete abnormality. No significant changes when compared with prior studies. ASSESSMENT: Benign, BI-RAD 2 RECOMMENDATION: Routine screening mammogram of both breasts in 1 year.
== END | disposition home or self-care (01) ==
LOC: RADMAMWWP 09:11
PROVIDERS: ATTEND Internal Medicine
DX: Z12.31 Encounter for screening mammogram for malignant neoplasm of breast (principal)
CPT/HCPCS: 77063; 77067

== ENCOUNTER → 2021-03-22 | Outpatient (CLI) | payer MEDICARE, BC ==
--- NOTE | 2021-03-22 20:01 | BD ---
EXAMINATION TYPE: Axial Bone Density DATE OF EXAM: 03/22/2021 COMPARISON: 2018 CLINICAL HISTORY: Postmenopausal screening Height: 62 Weight: 104.2 FRAX RISK QUESTIONS: Alcohol (3 or more units per day): no Family History (Parent hip fracture): no Glucocorticoids (More than 3mos): no (Ex: prednisone, prednisolone, methylprednisolone, dexamethasone, and hydrocortisone). History of Fracture in Adulthood: yes Secondary Osteoporosis: 1. Type 1 Diabetes: no 2. Hyperthyroidism: no 3. Menopause before 45: no 4. Malnutrition: no 5. Chronic liver disease: no Rheumatoid Arthritis: no Current Tobacco Use: RISK FACTORS HISTORY OF: Surgery to Spine/Hip(right/left)/Wrist (right/left): no Family History of Osteoporosis: no Active: yes Diet low in dairy products/other sources of calcium: yes Postmenopausal woman: yes Lost more than 2 inches in height since high school: no MEDICATIONS: Celexa, Respinol Additional History: EXAM MEASUREMENTS: Bone mineral densitometry was performed using the [employer] System. Bone mineral density as measured about the Lumbar spine is: ----- L1-L4(G/cm2): 0.961 T Score Values are as follows: ----- L2: -2.1 ----- L3: -1.7 ----- L4: -1.9 ----- L1-L4: -1.8 Bone mineral density has: decreased -1.7 % since study of: 08.20.2017 Bone mineral density about the R hip (g/cm2): 0.776 Bone mineral density about the L hip (g/cm2): 0.747 T Score values are as follows: -----R Neck: -1.9 -----L Neck: -2.1 -----R Total: -2.2 -----L Total: -2.3 Bone mineral density has: decreased -6.6 % since study of: 08.20.2017 IMPRESSION: Osteopenia (T Score between -2.5 and -1). There is slightly increased risk of fracture and the patient may be considered for treatment. Re-Screen 2-5 years. NOTE: T-SCORE=SD OF THE YOUNG ADULT MEAN.
== END | disposition home or self-care (01) ==
LOC: LABWHC1 13:07
PROVIDERS: ATTEND Internal Medicine
DX: Z78.0 Asymptomatic menopausal state (principal)
CPT/HCPCS: 77080

== ENCOUNTER → 2021-10-19 | Outpatient (CLI) | payer MEDICARE, BC ==
--- NOTE | 2021-10-26 10:57 | HM ---
HOLTER MONITOR REPORT 48 HOUR HOLTER REPORT: There was no diary provided with this recording. Predominant rhythm appears to be sinus with a heart rate ranging from 61 to 113 beats per minute with average heart rate of 79 beats per minute. There is 1 short run of 5- beat PAT noted. No significant ventricular ectopic beats were noted. There was no evidence of any significant bradyarrhythmia. FINAL IMPRESSION: No diary was provided, presumably no symptoms. Predominant rhythm is sinus with average heart rate of 61 beats per minute with 1 short run of PAT that occurred at 11:06 pm. No symptoms were reported. No significant ventricular ectopy or bradyarrhythmia. MMODL / IJN: [id number] /
== END | disposition home or self-care (01) ==
LOC: RADECHMAIN 11:49
PROVIDERS: ATTEND Psychiatry & Neurology Neurology
DX: R55 Syncope and collapse (principal); I49.9 Cardiac arrhythmia, unspecified
CPT/HCPCS: 93225; 93226

== ENCOUNTER → 2021-11-29 | Outpatient (CLI) | payer MEDICARE, BC ==
--- NOTE | 2021-11-29 12:21 | MR ---
EXAMINATION TYPE: MR brain wo/w con DATE OF EXAM: 11/29/2021 11:33 AM COMPARISON: NONE HISTORY: Syncope, Abnormal EEG CONTRAST: Patient received 4.5 mL intravenous Gadavist gadolinium contrast. Multiplanar and multispin-echo imaging of the brain was performed . Pre and post contrast enhanced i mages are obtained. The ventricles, basal cisterns and sulci overlying the cerebral convexities are mildly to moderately enlarged. There is evidence of mild periventricular white matter ischemic demyelination. Remote deep white matter insults are also noted. No acute edema is seen on diffusion weighted imaging. There is no evidence for midline shift or mass effect. Acute intracranial hemorrhage or extra-axial collection is not evident. No enhancing lesions are seen. The paranasal sinuses and mastoid air cells are well-aerated. IMPRESSION: Age-related atrophic and chronic small vessel ischemic change. No acute intracranial process at this time. No enhancing lesions are seen.
== END | disposition home or self-care (01) ==
LOC: RADMRIMAIN 10:26
PROVIDERS: ATTEND Psychiatry & Neurology Neurology
DX: R94.01 Abnormal electroencephalogram [EEG] (principal)
CPT/HCPCS: 70553; A9585

== ENCOUNTER → 2022-08-22 | Outpatient (CLI) | payer MEDICARE, BC ==
--- NOTE | 2022-08-23 21:08 | MM ---
Reason for Exam: Screening (asymptomatic). Last mammogram was performed 1 year(s) and 6 month(s) ago. Patient History: Menarche at age 17. Patient has no children. Postmenopausal. Risk Values: Nikki 5 year model risk: 1.8%. NCI Lifetime model risk: 4.9%. Prior Study Comparison: 08/20/2017 Bilateral Screening Mammogram, [facility] WITH [facility]. 09/10/2018 Bilateral Screening Mammogram, [facility] WITH [facility]. 02/21/2021 Bilateral Screening Mammogram, [facility] WITH [facility]. Tissue Density: The breast tissue is heterogeneously dense. This may lower the sensitivity of mammography. Findings: Analyzed By CAD. Coarse heterogeneous microcalcifications associated with a chronic nodularity posterior upper-outer quadrant right breast. A few benign oil cyst calcifications also present on the right. Medial asymmetric density posterior depth right cc view is more pronounced and incompletely disperses on 3-D images. Further evaluation is recommended. Overall Assessment: Incomplete: need additional imaging evaluation, BI-RAD 0 Management: Special View Mammogram of the right breast. Diagnostic Breast Ultrasound of the right breast. For the medial asymmetric density.. [facility] will attempt to contact patient to return for supplemental views and ultrasound if indicated. Electronically signed and approved by: Ender Ly M.D. Radiologist
== END | disposition home or self-care (01) ==
LOC: RADMAMWWP 15:56
PROVIDERS: ATTEND Family Medicine
DX: Z12.31 Encounter for screening mammogram for malignant neoplasm of breast (principal); Z78.0 Asymptomatic menopausal state
CPT/HCPCS: 77063; 77067

== ENCOUNTER → 2022-08-29 | Outpatient (CLI) | payer MEDICARE, BC ==
--- NOTE | 2022-08-29 11:00 | MM ---
Reason for Exam: Additional evaluation requested from abnormal screening. Last screening mammogram was performed less than 1 month ago. Patient History: Menarche at age 17. Patient has no children. Postmenopausal. Risk Values: Nikki 5 year model risk: 1.8%. NCI Lifetime model risk: 4.9%. Prior Study Comparison: 12/01/2015 Screening Mammogram, Unknown. 08/20/2017 Bilateral Screening Mammogram, [facility]. 09/10/2018 Bilateral Screening Mammogram, [facility]. 02/21/2021 Bilateral Screening Mammogram, [facility]. 08/22/2022 Bilateral MG 3D screening mammo w/cad, [facility]. Tissue Density: Right: The breast tissue is heterogeneously dense. This may lower the sensitivity of mammography. Findings: Analyzed By CAD. The questioned medial symmetric density disperses on spot views. Findings compatible with superimposition shadow. Otherwise, no significant change from prior exams. Overall Assessment: Benign, BI-RAD 2 Management: Screening Mammogram of both breasts in 1 year. . Results were given to the patient verbally at the time of exam. Patient should continue monthly self-breast exams. A clinical breast exam by your physician is recommended on an annual basis. This exam should not preclude additional follow-up of suspicious palpable abnormalities. Note on Nikki scores and lifetime risk: 1. A Nikki score greater than 3% is considered moderate risk. If this is the case, consider specialist referral to assess eligibility for a risk reducing agent. 2. If overall lifetime risk for the development of breast cancer is 20% or higher, the patient may qualify for future screening with alternating mammogram and breast MRI. Electronically signed and approved by: Ender Ly M.D. Radiologist
== END | disposition home or self-care (01) ==
LOC: RADMAMWWP 10:10
PROVIDERS: ATTEND Family Medicine
DX: R92.8 Other abnormal and inconclusive findings on diagnostic imaging of breast (principal); Z78.0 Asymptomatic menopausal state
CPT/HCPCS: 77065; G0279; 77061

== ENCOUNTER 2023-09-04 14:53 | Emergency (ER) | payer MEDICARE, BC ==
--- NOTE | 2023-09-04 14:56 | ED ---
Lower Extremity Injury HPI - General Source: patient, RN notes reviewed Mode of arrival: ambulatory Limitations: no limitations <Gianna Pineda - Last Filed: 09/04/23 14:54> - General Source: RN notes reviewed, old records reviewed Mode of arrival: ambulatory Limitations: no limitations - History of Present Illness MD Complaint: foot injury -: week(s) Injury: Foot: Left Type of Injury: blunt, inversion Place: home Severity: moderate Severity scale (1-10): 5 Context: fall, direct blow, running Associated Symptoms: swelling, numbness Treatments Prior to Arrival: other (0) <Tomasz Marsh - Last Filed: 09/15/23 17:33> - General Chief Complaint: Extremity Injury, Lower Stated Complaint: left foot injury Time Seen by Provider: 09/04/23 14:55 - History of Present Illness Initial Comments: Quick Note: This is a 73-year-old female who presents to the emergency department for left foot pain. Patient states that she fell a week ago and injured the left foot. This has since been increasingly painful and swollen. She is having difficulty putting her shoe on due to the pain. (Gianna Pineda) This is a 73-year-old female to the ER for evaluation of left foot pain left foot pain after rolling left foot 1 week ago. Patient has no significant other injury or traumatic event. Patient is complaining of left foot pain difficult to ambulate but pain has been persistent and not improved (Tomasz Marsh) - Related Data Home Medications Medication Instructions Recorded Confirmed Citalopram Hydrobromide [CeleXA] 40 mg PO DAILY 10/13/15 09/11/23 Atorvastatin [Lipitor] 5 mg PO DAILY 09/11/23 09/11/23 carBAMazepine [carBAMazepine ER] 09/11/23 lisinopriL [Zestril] 5 mg PO DAILY 09/11/23 09/11/23 Allergies Allergy/AdvReac Type Severity Reaction Status Date / Time clarithromycin [From Biaxin] Allergy Unknown Verified 09/17/19 11:05 metronidazole [From Flagyl] Allergy Unknown Verified 09/11/23 09:45 Review of Systems ROS Other: All systems not noted in ROS Statement are negative. <Gianna Pineda - Last Filed: 09/04/23 14:54> ROS Other: All systems not noted in ROS Statement are negative. <Tomasz Marsh - Last Filed: 09/15/23 17:33> ROS Statement: Those systems with pertinent positive or pertinent negative responses have been documented in the HPI. Past Medical History Past Medical History: Asthma, GERD/Reflux, Pneumonia Additional Past Medical History / Comment(s): Bronchitis, small hiatal hernia, constipation, IBS, occasional UTIs, chronic back pain. History of Any Multi-Drug Resistant Organisms: None Reported Past Surgical History: Tonsillectomy, Tubal Ligation Additional Past Surgical History / Comment(s): EGD, colonoscopies Past Anesthesia/Blood Transfusion Reactions: No Reported Reaction Past Psychological History: Anxiety, Depression Additional Psychological History / Comment(s): Pt resides alone. She uses no assistive device. She attended special education. She does not drive, she uses the bus system. She sees a psych therapist, Mary Mejias. Past Alcohol Use History: Rare Past Drug Use History: None Reported - Past Family History Mother History Unknown: Yes Additional Family Medical History / Comment(s): Mother is Father History Unknown: Yes Additional Family Medical History / Comment(s): Father is . <Gianna Pineda - Last Filed: 09/04/23 14:54> General Exam <Gianna Pineda - Last Filed: 09/04/23 14:54> General appearance: alert, in no apparent distress Head exam: Present: atraumatic, normocephalic, normal inspection Eye exam: Present: normal appearance, PERRL, EOMI. Absent: scleral icterus, conjunctival injection, periorbital swelling ENT exam: Present: normal exam, mucous membranes moist Neck exam: Present: normal inspection. Absent: tenderness, meningismus, lymphadenopathy Respiratory exam: Present: normal lung sounds bilaterally. Absent: respiratory distress, wheezes, rales, rhonchi, stridor Cardiovascular Exam: Present: regular rate, normal rhythm, normal heart sounds. Absent: systolic murmur, diastolic murmur, rubs, gallop, clicks GI/Abdominal exam: Present: soft, normal bowel sounds. Absent: distended, tenderness, guarding, rebound, rigid Extremities exam: Present: normal inspection, full ROM, normal capillary refill. Absent: tenderness, pedal edema, joint swelling, calf tenderness Back exam: Present: normal inspection Neurological exam: Present: alert, oriented X3, CN II-XII intact Psychiatric exam: Present: normal affect, normal mood Skin exam: Present: warm, dry, intact, normal color. Absent: rash <Tomasz Marsh - Last Filed: 09/15/23 17:33> - General Exam Comments Initial Comments: Visual Physical Exam Vital signs reviewed General: Well-appearing, nontoxic, no acute distress. Head: Normocephalic, atraumatic Eyes: PERRLA, EOMI ENT: Airway patent Chest: Nonlabored breathing Skin: No visual rash, normal skin tone Neuro: Alert and oriented 3 Musculoskeletal: No gross abnormalities (Gianna Pineda) Course <Tomasz Marsh - Last Filed: 09/15/23 17:33> Vital Signs 09/04/23 09/04/23 15:23 17:09 Temperature 98 F 97.9 F Pulse Rate 83 69 Respiratory 16 18 Rate Blood Pressure 138/70 160/77 O2 Sat by Pulse 100 97 Oximetry - Reevaluation(s) Reevaluation #1: Medical records reviewed (Tomasz Marsh) Reevaluation #2: Patient symptoms unchanged (Tomasz Marsh) Reevaluation #3: Patient informed of results questions answered (Tomasz Marsh) Reevaluation #4: Was pt. sent in by a medical professional or institution (, PA, BUSINESS TRANSFORMATION ANALYST, urgent care, hospital, or senior living...) When possible be specific @ -no Did you speak to anyone other than the patient for history (EMS, parent, family, police, friend...)? What history was obtained from this source @ -no Did you review nursing and triage notes (agree or disagree)? Why? @ -agree Are old charts reviewed (outside hosp., previous admission, EMS record, old EKG, old radiological studies, urgent care reports/EKG's, senior living records)? Report findings @ -yes Differential Diagnosis (chest pain, altered mental status, abdominal pain women, abdominal pain men, vaginal bleeding, weakness, fever, dyspnea, syncope, headache, dizziness, GI bleed, back pain, seizure, CVA, palpatations, mental health, musculoskeletal)? @ -prior EKG interpreted by me (3pts min.). @ -no X-rays interpreted by me (1pt min.). @ -yes negative for acute disease CT interpreted by me (1pt min.). @ -no U/S interpreted by me (1pt. min.). @ -no What testing was considered but not performed or refused? (CT, X-rays, U/S, labs)? Why? @ -none What meds were considered but not given or refused? Why? @ -none Did you discuss the management of the patient with other professionals (professionals i.e. DrHoracio, PA, BUSINESS TRANSFORMATION ANALYST, lab, RT, psych nurse, social sciences instructor, transitions rn care coordinator, teacher, commanding officer homicide squad, welfare case worker)? Give summary @ -no Was smoking cessation discussed for >3mins.? @ -no Was critical care preformed (if so, how long)? @ -no Were there social determinants of health that impacted care today? How? (Homelessness, low income, unemployed, alcoholism, drug addiction, transportation, low edu. Level, literacy, decrease access to med. care, half-way, rehab)? @ -none Was there de-escalation of care discussed even if they declined (Discuss DNR or withdrawal of care, Hospice)? DNR status @ -no What co-morbidities impacted this encounter? (DM, HTN, Smoking, COPD, CAD, Cancer, CVA, ARF, Chemo, Hep., AIDS, mental health diagnosis, sleep apnea, morbid obesity)? @ -none Was patient admitted / discharged? Hospital course, mention meds given and route, prescriptions, significant lab abnormalities, going to OR and other pertinent info. @ - 73 female with normal right foot x-ray with her and right foot pain. Patient has no traumatic injury noted and patient can be discharged home Discharge Undiagnosed new problem with uncertain prognosis? @ -no Drug Therapy requiring intensive monitoring for toxicity (Heparin, Nitro, Insulin, Cardizem)? @ -no Were any procedures done? @ -no Diagnosis/symptom? @ -Right foot pain contusion Acute, or Chronic, or Acute on Chronic? @ -Acute Uncomplicated (without systemic symptoms) or Complicated (systemic symptoms)? @ -Complicated Side effects of treatment? @ -no Exacerbation, Progression, or Severe Exacerbation? @ -exacerbation Poses a threat to life or bodily function? How? (Chest pain, [place], HI, pneumonia, PE, COPD, DKA, ARF, appy, cholecystitis, CVA, Diverticulitis, Homicidal, Suicidal, threat to staff... and all critical care pts) @ -no (Tomasz Marsh) Medical Decision Making <Gianna Pineda - Last Filed: 09/04/23 14:54> - Radiology Data Radiology results: report reviewed (X-ray negative for acute disease), image re viewed <Tomasz Marsh - Last Filed: 09/15/23 17:33> - Medical Decision Making I performed the QuickNote portion of this chart. Signed Gianna Pineda PA-C. (Gianna Pineda) 73 female with normal right foot x-ray with her and right foot pain. Patient has no traumatic injury noted and patient can be discharged home (Tomasz Marsh) Disposition <Gianna Pineda - Last Filed: 09/04/23 14:54> Is patient prescribed a controlled substance at d/c from ED?: No Time of Disposition: 16:40 <Tomasz Marsh - Last Filed: 09/15/23 17:33> Clinical Impression: Contusion of left foot Disposition: HOME SELF-CARE Condition: Good Instructions (If sedation given, give patient instructions): Foot Contusion (ED), Foot Sprain (ED) Referrals: Sen Henriquez MD [Primary Care Provider] - 1-2 days
--- NOTE | 2023-09-04 16:21 | XR ---
EXAMINATION TYPE: XR foot complete LT DATE OF EXAM: 09/04/2023 4:00 PM CLINICAL INDICATION:Female, 73 years old with history of Fall; COMPARISON: None TECHNIQUE: XR foot complete LT examined in the AP, oblique, and lateral projections. FINDINGS: No evidence of any acute osseous pathology. Soft tissue swelling over the dorsal foot. Multifocal de generation changes throughout the joints of the foot with osteophyte formation and joint space narrow ing. IMPRESSION: 1. No evidence of acute fracture. 2. Soft tissue swelling throughout the foot dorsally. No evidence of fracture. 3. Multifocal degeneration changes throughout the joints of the foot.
[2023-09-04 17:11] VITALS: BP 160/77; PULSE 69; RESP 18; TEMP 97.9
== END 2023-09-04 17:11 | disposition home or self-care (01) ==
LOC: EC 14:53
DX: S90.32XA Contusion of left foot, initial encounter (principal); Z88.1 Allergy status to other antibiotic agents; W19.XXXA Unspecified fall, initial encounter; Y92.009 Unspecified place in unspecified non-institutional (private) residence as the place of occurrence of the external cause; Y93.02 Activity, running
CPT/HCPCS: 99283

== ENCOUNTER → 2023-09-04 | Outpatient (CLI) | payer MEDICARE, BC ==
--- NOTE | 2023-09-05 21:06 | MM ---
Reason for Exam: Screening (asymptomatic). Last mammogram was performed 1 year(s) and 1 month(s) ago. Patient History: Menarche at age 17. Patient has no children. Postmenopausal. Risk Values: Nikki 5 year model risk: 1.8%. NCI Lifetime model risk: 4.6%. Prior Study Comparison: 02/21/2021 Bilateral Screening Mammogram, [facility]. 08/22/2022 Bilateral MG 3D screening mammo w/cad, [facility]. 08/29/2022 Right MG 3D work up w/cad RT, [facility]. Tissue Density: The breasts are extremely dense, which lowers the sensitivity of mammography. Findings: Analyzed By CAD. Nodularity which because of apparent on 3-D images within the central inner aspect of the right breast anterior to middle depth and within the inferior aspect of the left breast middle to posterior depth. Given the very dense breast tissue, further ultrasound evaluation is recommended. Overall Assessment: Incomplete: need additional imaging evaluation, BI-RAD 0 Management: Diagnostic Breast Ultrasound of both breasts. Medial half of the right breast in inferior half of the left breast. [facility] will attempt to contact patient to return for ultrasound. Electronically signed and approved by: Ender Ly M.D. Radiologist
== END | disposition home or self-care (01) ==
LOC: RADMAMWWP 14:29
PROVIDERS: ATTEND Family Medicine
DX: Z12.31 Encounter for screening mammogram for malignant neoplasm of breast (principal); Z78.0 Asymptomatic menopausal state
CPT/HCPCS: 77063; 77067

== ENCOUNTER → 2023-09-10 | Outpatient (CLI) | payer MEDICARE, BC ==
--- NOTE | 2023-09-10 11:42 | USB ---
Reason for Exam: Additional evaluation requested from abnormal screening. Patient History: Menarche at age 17. Patient has no children. Postmenopausal. Risk Values: Nikki 5 year model risk: 1.8%. NCI Lifetime model risk: 4.6%. Technique: Method: Targeted. Prior Study Comparison: 08/22/2022 Bilateral MG 3D screening mammo w/cad, [facility]. 08/29/2022 Right MG 3D work up w/cad RT, [facility]. 09/04/2023 Bilateral MG 3D screening mammo w/cad, [facility]. Findings: The upper section of the breast of the right breast, the lower section of the breast of the left breast, the medial section of the breast of the right breast, the axilla of both breasts and the retroareolar of both breasts were scanned. Right breast: Ovoid fairly smoothly marginated mass right 11:00 position measuring 1.6 cm. While this could reflect a fibroadenoma tissue diagnosis is recommended. No additional masses identified within the right breast. Left breast: No solid or cystic masses seen.. Overall Assessment: Suspicious, BI-RAD 4 Management: Ultrasound Core Biopsy of the right breast. A clinical breast exam by your physician is recommended on an annual basis and results should be correlated with mammographic findings. This exam should not preclude additional follow-up of suspicious palpable abnormalities. Results were given to the patient verbally at the time of exam. Electronically signed and approved by: Shmuel Bo M.D. Radiologis
== END | disposition home or self-care (01) ==
LOC: RADUSWWP 10:58
PROVIDERS: ATTEND Family Medicine
DX: R92.343 Mammographic extreme density, bilateral breasts (principal); R92.8 Other abnormal and inconclusive findings on diagnostic imaging of breast; Z78.0 Asymptomatic menopausal state

== ENCOUNTER → 2023-09-26 | Day surgery (SDC) | payer MEDICARE, BC ==
--- NOTE | 2023-10-01 14:15 | MM ---
Reason for Exam: Post Procedure Mammogram. Last screening mammogram was performed less than 1 month ago. Patient History: Menarche at age 17. Patient has no children. Postmenopausal. Risk Values: Nikki 5 year model risk: 1.8%. NCI Lifetime model risk: 4.6%. Prior Study Comparison: 08/22/2022 Bilateral MG 3D screening mammo w/cad, [facility]. 08/29/2022 Right MG 3D work up w/cad RT, [facility]. 09/04/2023 Bilateral MG 3D screening mammo w/cad, [facility]. Tissue Density: Right: The breasts are extremely dense, which lowers the sensitivity of mammography. Pathology Description: Location: 11 o'clock. Marker Left Behind. Needle Type: Celero Cores: 3 Gauge: 12 The procedure of ultrasound guided core biopsy was explained to the patient. Benefits, alternatives, and risks were discussed. An informed consent was then obtained. The patient was placed in supine positioning for imaging and for the procedure. The overlying skin was prepped and draped in usual sterile fashion. Lidocaine buffered with bicarbonate was used as anesthetic into the skin and subcutaneous tissue up to area of concern in the right 11:00 breast. Under ultrasound guidance, a 12-gauge vacuum assisted biopsy gun device was used to obtain 3 core samples. Following this, a biopsy clip was left in lesion. The patient tolerated the procedure well without any immediate complication. The patient was kept in the radiology department for short stay after the procedure and then discharged home in stable condition. Postprocedure mammogram: The patient was transferred to mammography for physician ordered post procedure mammogram for clip placement verification. Impression: Successful, uncomplicated ultrasound guided core biopsy of area of concern in the right 11 breast, full pathology results to follow. Pathology Results: Result: Benign, Fibroadenoma. Pathology and radiology were reviewed. Findings are concordant. RIGHT BREAST, 11:00, ULTRASOUND GUIDED CORE BIOPSY: Benign fibroadenoma. Overall Assessment: Benign Assessment: MG diagnostic mammo RT wo CAD - Right: Benign, BI-RAD 2. Management: Diagnostic Mammogram of the right breast in 6 months. Diagnostic Breast Ultrasound of the right breast in 6 months. Electronically signed and approved by: Shmuel Bo M.D. Radiologis
== END ==
LOC: RADUSWWP 12:39
PROVIDERS: ATTEND Surgery
DX: D24.1 Benign neoplasm of right breast (principal); R92.8 Other abnormal and inconclusive findings on diagnostic imaging of breast; Z78.0 Asymptomatic menopausal state
CPT/HCPCS: 88305; 77065; 19083; A4648

== ENCOUNTER → 2023-10-10 | Outpatient (CLI) | payer MEDICARE, BC ==
[2023-10-10 13:26] VITALS: BP 162/99; PULSE 83; RESP 17; TEMP 97.8
--- NOTE | 2023-10-10 13:33 | P.GSCN ---
History of Present Illness Consult date: 10/10/23 Reason for Consult: right breast fibroadenoma Requesting physician: Sen Henriquez History of present illness: Gail is a 73 year old female seen in consultation for Dr. Henriquez regarding a right breast fibroadenoma. She had a bilateral mammogram on 09-04-23 which was BIRAD 0, this led to bilateral breast ultrasound. This was done on 09-10-23 and showed a 1.6 cm lesion in the right breast and no lesions of concern in the left breast. Core biopsy of the right breast on 09-26-23 was benign specific fibroadenoma. These radiographs were personally reviewed and discussed with Dr. Lynch from radiology. She gets mammograms annually. She has a learning disability and the history is from her sister. She is not complaining of any nipple discharge or pain in her breast. She has never had any surgery on her breast. Mild developmentally disabled, she lives alone Caffeine: 1 cup/day nicotine: none chocolate: none BCP: had a tubaligation about age 36 Family History: father: prostate cancer mother: ? skin cancer at 92 Hormonal History: menarche: 17 G0 Menopause: ? when hormones: none BCP: none Surgical History: Tubal ligation for control Medical History: Developmentally disabled depression Social History: nicotine: none alcohol: occasional drugs: none Review of Systems - Constitutional Reports weight loss, Denies fever - EENT EENT Comment(s): congenital blind left eye Ears: deny: decreased hearing, tinnitus Ears, nose, mouth and throat: Denies dysphagia - Breasts bilateral: as per HPI - Cardiovascular Denies chest pain, Denies shortness of breath - Respiratory Denies cough, Denies 7 - Gastrointestinal Gastrointestinal Comment(s): IBS, GERD Reports as per HPI - Genitourinary Genitourinary: Denies dysuria, Denies hematuria Menstruation: Reports postmenopausal - Musculoskeletal Musculoskeleta Comment(s): low back pain - Integumentary Denies rash, Denies unusual bruising - Neurological Denies headaches, Denies syncope - Psychiatric Reports anxiety, Reports depression - Endocrine Reports fatigue, Reports weight change - Allergic/Immunologic Reports seasonal allergies Past Medical History Past Medical History: Asthma, GERD/Reflux, Hyperlipidemia, Hypertension, Pneumonia Additional Past Medical History / Comment(s): Bronchitis, small hiatal hernia, constipation, IBS, occasional UTIs, chronic back pain. History of Any Multi-Drug Resistant Organisms: None Reported Past Surgical History: Tonsillectomy, Tubal Ligation Additional Past Surgical History / Comment(s): EGD, colonoscopies Past Anesthesia/Blood Transfusion Reactions: No Reported Reaction Past Psychological History: Anxiety, Depression Additional Psychological History / Comment(s): Pt resides alone. She uses no assistive device. She attended special education. She does not drive, she uses the bus system. She sees a psych therapist, Mary Mejias. Smoking Status: Never smoker Past Alcohol Use History: Rare Past Drug Use History: None Reported - Past Family History Mother History Unknown: Yes Additional Family Medical History / Comment(s): Mother is Father History Unknown: Yes Additional Family Medical History / Comment(s): Father is . Medications and Allergies Home Medications Medication Instructions Recorded Confirmed Type Citalopram Hydrobromide [CeleXA] 40 mg PO DAILY 10/13/15 09/11/23 History Atorvastatin [Lipitor] 5 mg PO DAILY 09/11/23 09/11/23 History carBAMazepine [carBAMazepine ER] 09/11/23 History lisinopriL [Zestril] 5 mg PO DAILY 09/11/23 09/11/23 History Allergies Allergy/AdvReac Type Severity Reaction Status Date / Time clarithromycin [From Biaxin] Allergy Unknown Verified 09/17/19 11:05 metronidazole [From Flagyl] Allergy Unknown Verified 09/11/23 09:45 Surgical - Exam - Eyes blind left eye normal ocular movement - Neck trachea midline - Respiratory normal respiratory effort, clear to auscultation - Cardiovascular Rhythm: regular Heart Sounds: normal: S1, S2 - Abdomen Abdomen: soft, non tender, no guarding, no rigid, no rebound - Integumentary normal turgor, swollen left foot after a fall - Musculoskeletal difficulty with walking Breast Exam: BRA: 32A Inspection: Bilateral grade 3 ptosis Palpation: Right breast: Multi positional exam no dominant masses or nodules of concern, biopsy site clean and dry Right axilla: No adenopathy of concern Left breast: Multi positional exam no dominant masses or nodules of concern Left axilla: No adenopathy of concern Results Bilateral mammogram and ultrasound reviewed, right breast ultrasound core biopsy fibroadenoma benign specific Assessment and Plan Assessment: Impression: Developmentally disabled Swollen left foot following a fall 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 Anahi Cmapo is her sister, and power of united [place] attorney. CC: Dr. Henriquez
== END ==
LOC: WWCWWP 12:01
PROVIDERS: ATTEND Surgery
DX: D24.1 Benign neoplasm of right breast (principal); M79.89 Other specified soft tissue disorders; Z60.2 Problems related to living alone; Z88.1 Allergy status to other antibiotic agents; Z88.8 Allergy status to other drugs, medicaments and biological substances

== ENCOUNTER → 2023-10-29 | Outpatient (CLI) | payer MEDICARE, BC ==
--- NOTE | 2023-10-29 12:16 | US ---
EXAMINATION TYPE: US venous doppler duplex LE LT DATE OF EXAM: 10/29/2023 12:03 PM COMPARISON: NONE CLINICAL INDICATION: Female, 73 years old with history of I80.9 PHLEBITIS AND THROMBOPHLEBITIS OF UNS PECIFIE; sprain in left ankle last month, swelling now, no h/o dvt SIDE PERFORMED: Left TECHNIQUE: The lower extremity deep venous system is examined utilizing real time linear array sonog bhargav with graded compression, doppler sonography and color-flow sonography. VESSELS IMAGED: Common Femoral Vein Deep Femoral Vein Greater Saphenous Vein * Femoral Vein Popliteal Vein Small Saphenous Vein * Proximal Calf Veins (* superficial vessels) Left Leg: Negative for DVT *called office at 12:05 - neg IMPRESSION: Grayscale, color doppler, spectral doppler imaging performed of the deep veins of the lo wer extremities. There is normal flow, compressibility, vascular waveforms.
== END | disposition home or self-care (01) ==
LOC: RADUSWWP 11:23
PROVIDERS: ATTEND Orthopaedic Surgery
DX: I80.02 Phlebitis and thrombophlebitis of superficial vessels of left lower extremity (principal); S93.412D Sprain of calcaneofibular ligament of left ankle, subsequent encounter; S93.492D Sprain of other ligament of left ankle, subsequent encounter; S93.422D Sprain of deltoid ligament of left ankle, subsequent encounter

== ENCOUNTER → 2024-02-06 | Outpatient (CLI) | payer MEDICARE, BC ==
--- NOTE | 2024-02-08 18:10 | BD ---
EXAMINATION TYPE: Axial Bone Density DATE OF EXAM: 02/06/2024 CLINICAL HISTORY: 73 years old Female. ICD-10 CODE: M85.80 OTH DISRD OF BONE DENSITY AND STRUCTURE, UN , Additional History: Height: 61.7 Weight: 98lbs FRAX RISK QUESTIONS: History of Fracture in Adulthood: yes Secondary Osteoporosis: RISK FACTORS HISTORY OF: History of Wrist Fracture: yes, left When: about 10 years ago MEDICATIONS: EXAM MEASUREMENTS: Bone mineral densitometry was performed using the [employer] System. Bone mineral density as measured about the Lumbar spine is: ----- L1-L4(G/cm2): 0.892 T Score Values are as follows: ----- L1: -2.7 ----- L2: -2.7 ----- L3: -2.3 ----- L4: -2.3 ----- L1-L4: -2.4 Z Score Values are as follows: ----- L1: -0.3 ----- L2: -0.3 ----- L3: 0.1 ----- L4: 0.1 ----- L1-L4: 0.0 Bone mineral density has: Decreased -7.2% since study of: 03-22-21 Bone mineral density about the R hip (g/cm2): 0.720 Bone mineral density about the L hip (g/cm2): 0.694 T Score values are as follows: -----R Neck: -2.2 -----L Neck: -2.4 -----R Total: -2.3 -----L Total: -2.5 Z Score values are as follows: -----R Neck: 0.1 -----L Neck: -0.1 -----R Total: -0.2 -----L Total: -0.4 Bone mineral density has: Decreased -2.3% since study of: 03-22-21 FRAX%s: The graph provided illustrates a 18.8% chance for a major osteoporotic fx and a 5.3% chance f or the hips probability for fx in 10 years time. IMPRESSION: Osteopenia (T Score between -2.5 and -1). There is slightly increased risk of fracture and the patient may be considered for treatment. Re-Screen 2-5 years. NOTE: T-SCORE=SD OF THE YOUNG ADULT MEAN. [facility], , 02/08/2024 6:08 PM
== END | disposition home or self-care (01) ==
LOC: RADBDWWP 07:56
PROVIDERS: ATTEND Family Medicine
DX: M85.89 Other specified disorders of bone density and structure, multiple sites (principal); Z78.0 Asymptomatic menopausal state
CPT/HCPCS: 77080

== ENCOUNTER → 2024-03-30 | Outpatient (CLI) | payer MEDICARE, BC ==
--- NOTE | 2024-03-30 11:10 | MM ---
Reason for Exam: Follow-up at short interval from prior study. Last screening mammogram was performed 6 month(s) ago. Patient History: Menarche at age 17. Patient has no children. Postmenopausal. 09/26/2023, Benign US biopsy breast VAD RT on the right side. Risk Values: Nikki 5 year model risk: 2.1%. NCI Lifetime model risk: 5.5%. Prior Study Comparison: 08/29/2022 Right MG 3D work up w/cad RT, [facility]. 09/04/2023 Bilateral MG 3D screening mammo w/cad, [facility]. 09/26/2023 Right MG diagnostic mammo RT wo CAD, [facility]. Tissue Density: Right: The breasts are heterogeneously dense, which may obscure small masses. Findings: Analyzed By CAD. The pattern is stable. There is heterogenous small round calcifications upper outer right breast. A coil core marker is present within this region. Inferior reports area of pain in the lateral posterior right breast. No underlying mammographic abnormality is evident. Clinical management of this region is recommended. No suspicious groups of microcalcifications, spiculated or lobular masses, architectural distortion or other secondary signs of malignancy are mammographically apparent. Overall Assessment: Benign, BI-RAD 2 Management: Screening Mammogram of both breasts in 5 months. A negative mammogram report should not preclude additional follow up of suspicious palpable abnormalities. Patient should continue monthly self breast exam. A clinical breast exam by your physician is recommended on an annual basis and results should be correlated with mammographic findings. Note on Nikki scores and lifetime risk: 1. A Nikki score greater than 3% is considered moderate risk. If this is the case, consider specialist referral to assess eligibility for a risk reducing agent. 2. If overall lifetime risk for the development of breast cancer is 20% or higher, the patient may qualify for future screening with alternating mammogram and breast MRI. [facility], , 03/30/2024 11:06 AM. Electronically signed and approved by: Chuck Morales D.O. Radiologis
== END | disposition home or self-care (01) ==
LOC: RADMAMWWP 10:03
PROVIDERS: ATTEND Surgery
DX: R92.8 Other abnormal and inconclusive findings on diagnostic imaging of breast (principal); R92.333 Mammographic heterogeneous density, bilateral breasts; Z78.0 Asymptomatic menopausal state
CPT/HCPCS: 77065; G0279; 77061

== ENCOUNTER → 2024-04-10 | Outpatient (CLI) | payer MEDICARE, BC | LOC: WWCWWP 09:20 | PROVIDERS: ATTEND Surgery | DX: Z53.9 Procedure and treatment not carried out, unspecified reason (principal) ==

== ENCOUNTER 2024-05-19 11:54 | Inpatient (IN) | payer MEDICARE, BC ==
--- NOTE | 2024-05-19 12:45 | ED ---
General Adult HPI - General Chief complaint: Chest Pain Stated complaint: Chest pain,Abd pain Time Seen by Provider: 05/19/24 12:05 Source: patient, RN notes reviewed, old records reviewed Mode of arrival: ambulatory Limitations: no limitations - History of Present Illness Initial comments: This is 73-year-old female who presents to the emergency department stating that for 2 weeks she has been nauseous and feeling weak and not feeling like eating or drinking. Patient states she has not really vomited or had diarrhea. Patient states she has been having chest pain on and off for the same 2 weeks she states is in the center of her chest that lasted about 10 minutes and is worse if she gets up and exerts herself. Patient states she is also had a ssociated difficulty breathing with it. Patient denies any diaphoretic episode. Patient has any fever chills or cough. - Related Data Home Medications Medication Instructions Recorded Confirmed Citalopram Hydrobromide [CeleXA] 40 mg PO DAILY 10/13/15 10/10/23 Atorvastatin [Lipitor] 5 mg PO DAILY 09/11/23 10/10/23 carBAMazepine [carBAMazepine ER] 100 mg PO DAILY 09/11/23 10/10/23 lisinopriL [Zestril] 5 mg PO DAILY 09/11/23 10/10/23 Allergies Allergy/AdvReac Type Severity Reaction Status Date / Time clarithromycin [From Biaxin] Allergy Unknown Verified 05/19/24 12:06 metronidazole [From Flagyl] Allergy Unknown Verified 05/19/24 12:06 Review of Systems ROS Statement: Those systems with pertinent positive or pertinent negative responses have been documented in the HPI. ROS Other: All systems not noted in ROS Statement are negative. Past Medical History Past Medical History: Asthma, GERD/Reflux, Hyperlipidemia, Hypertension, Pneumonia Additional Past Medical History / Comment(s): Bronchitis, small hiatal hernia, constipation, IBS, occasional UTIs, chronic back pain. History of Any Multi-Drug Resistant Organisms: None Reported Past Surgical History: Tonsillectomy, Tubal Ligation Additional Past Surgical History / Comment(s): EGD, colonoscopies Past Anesthesia/Blood Transfusion Reactions: No Reported Reaction Past Psychological History: Anxiety, Depression Smoking Status: Never smoker Past Alcohol Use History: Rare Past Drug Use History: None Reported - Past Family History Mother History Unknown: Yes Additional Family Medical History / Comment(s): Mother is Father History Unknown: Yes Additional Family Medical History / Comment(s): Father is . General Exam - General Exam Comments Initial Comments: GENERAL: Patient is well-developed and well-nourished. Patient is nontoxic and well- hydrated and is in mild distress. ENT: Neck is soft and supple. No significant lymphadenopathy is noted. Oropharynx is clear. Moist mucous membranes. Neck has full range of motion without eliciting any pain. EYES: The sclera were anicteric and conjunctiva were pink and moist. Extraocular movements were intact and pupils were equal round and reactive to light. Eyelids were unremarkable. PULMONARY: Unlabored respirations. Good breath sounds bilaterally. No audible rales rhonchi or wheezing was noted. CARDIOVASCULAR: There is a regular rate and rhythm without any murmurs gallops or rubs. ABDOMEN: Soft and nontender with normal bowel sounds. SKIN: Skin is clear with no lesions or rashes and otherwise unremarkable. NEUROLOGIC: Patient is alert and oriented x3. Cranial nerves II through XII are grossly intact. Motor and sensory are also intact. Normal speech, volume and content. Symmetrical smile. MUSCULOSKELETAL: Normal extremities with adequate strength and full range of motion. No lower extremity swelling or edema. No calf tenderness. LYMPHATICS: No significant lymphadenopathy is noted PSYCHIATRIC: Normal psychiatric evaluation. Limitations: no limitations Course Vital Signs 05/19/24 05/19/24 12:02 14:34 Temperature 98.3 F Pulse Rate 105 H 99 Respiratory 17 18 Rate Blood Pressure 149/80 164/96 O2 Sat by Pulse 98 97 Oximetry Medical Decision Making - Medical Decision Making EKG is interpreted by myself. Patient's EKG shows sinus tachycardia 102 bpm [place] interval is 106 QRS is 84 QT interval 315 QTc is 374. Patient's EKG shows no ST segment elevation or depression. Was pt. sent in by a medical professional or institution (, PA, COURT MAGISTRATE, urgent care, hospital, or fci...) When possible be specific @ -No Did you speak to anyone other than the patient for history (EMS, parent, family, police, friend...)? What history was obtained from this source @ -No Did you review nursing and triage notes (agree or disagree)? Why? @ -I reviewed and agree with nursing and triage notes Were old charts reviewed (outside hosp., previous admission, EMS record, old EKG, old radiological studies, urgent care reports/EKG's, fci records)? Report findings @ -No old charts were reviewed Differential Diagnosis? @ -Differential weakness EKG interpreted by me (3pts min.). @ -As above X-rays interpreted by me (1pt min.). @ -Chest x-ray shows no acute abnormality CT interpreted by me (1pt min.). @ -None done U/S interpreted by me (1pt. min.). @ -None done What testing was considered but not performed or refused? (CT, X-rays, U/S, labs)? Why? @ -None What meds were considered but not given or refused? Why? @ -None Did you discuss the management of the patient with other professionals (professionals i.e. , PA, COURT MAGISTRATE, lab, RT, psych nurse, case management social worker, environmental health aide, teacher, chief operating officer, vocational case manager)? Give summary @ -I spoke with sound physicians he agreed to admit the patient admit the patient for admitting orders Was smoking cessation discussed for >3mins.? @ -No Was critical care preformed (if so, how long)? @ -35 minutes Were there social determinants of health that impacted care today? How? (Homelessness, low income, unemployed, alcoholism, drug addiction, transportation, low edu. Level, literacy, decrease access to med. care, care home, rehab)? @ -No Was there de-escalation of care discussed even if they declined (Discuss DNR or withdrawal of care, Hospice)? DNR status @ -No What co-morbidities impacted this encounter? (DM, HTN, Smoking, COPD, CAD, Cancer, CVA, ARF, Chemo, Hep., AIDS, mental health diagnosis, sleep apnea, morbid obesity)? @ -None Was patient admitted / discharged? Hospital course, mention meds given and route, prescriptions, significant lab abnormalities, going to OR and other pertinent info. @ -Patient was hyponatremic and hyperkalemic. I replaced the patient's sodium with some normal saline 1 L. Patient also received calcium chloride bicarb regular insulin D50 and Lokelma for the hyperkalemia. Undiagnosed new problem with uncertain prognosis? @ -No Drug Therapy requiring intensive monitoring for toxicity (Heparin, Nitro, Insulin, Cardizem)? @ -No Were any procedures done? @ -No Diagnosis/symptom? @ -Hyperkalemia Acute, or Chronic, or Acute on Chronic? @ -Acute Uncomplicated (without systemic symptoms) or Complicated (systemic symptoms)? @ -Comp Side effects of treatment? @ -No Exacerbation, Progression, or Severe Exacerbation? @ -No Poses a threat to life or bodily function? How? (Chest pain, [place], [place], pneumonia, PE, COPD, DKA, ARF, appy, cholecystitis, CVA, Diverticulitis, Homicidal, Suicid al, threat to staff... and all critical care pts) @ -Yes this can lead to an arrhythmia and possible Diagnosis/symptom? @ -Hyponatremia Acute, or Chronic, or Acute on Chronic? @ -Acute Uncomplicated (without systemic symptoms) or Complicated (systemic symptoms)? @ -Complicated Side effects of treatment? @ -None Exacerbation, Progression, or Severe Exacerbation] @ -No Poses a threat to life or bodily function? @ -Yes this can lead to further weakness and possible morbidity Diagnosis/symptom? @ -Chest pain Acute, or Chronic, or Acute on Chronic? @ -Acute Uncomplicated (without systemic symptoms) or Complicated (systemic symptoms)? @ -Complicated Side effects of treatment? @ -None Exacerbation, Progression, or Severe Exacerbation] @ -No Poses a threat to life or bodily function? @ -No - Lab Data Result diagrams: 05/19/24 13:31 05/19/24 13:31 Lab Results 05/19/24 05/19/24 05/19/24 Range/Units 13:31 13:31 13:31 WBC 16.7 H (3.8-10.6) k/uL RBC 4.89 (3.80-5.40) m/uL Hgb 15.3 (11.4-16.0) gm/dL Hct 45.3 (34.0-46.0) % MCV 92.6 (80.0-100.0) fL MCH 31.3 (25.0-35.0) pg MCHC 33.8 (31.0-37.0) g/dL RDW 11.7 (11.5-15.5) % Plt Count 537 H (150-450) k/uL MPV 6.3 Neutrophils % 89 % Lymphocytes % 6 % Monocytes % 5 % Eosinophils % 1 % Basophils % 0 % Neutrophils # 14.8 H (1.3-7.7) k/uL Lymphocytes # 0.9 L (1.0-4.8) k/uL Monocytes # 0.7 (0-1.0) k/uL Eosinophils # 0.1 (0-0.7) k/uL Basophils # 0.0 (0-0.2) k/uL PT 9.9 L (10.0-12.5) sec INR 0.9 (<1.2) APTT 24.7 (22.0-30.0) sec Sodium 115 L* (137-145) mmol/L Potassium 6.0 H (3.5-5.1) mmol/L Chloride 78 L (98-107) mmol/L Carbon Dioxide 28 (22-30) mmol/L Anion Gap 9 mmol/L BUN 19 H (7-17) mg/dL Creatinine 0.84 (0.52-1.04) mg/dL Est GFR (CKD-EPI)AfAm 80 (>60 ml/min/1.73 sqM) Est GFR (CKD-EPI)NonAf 70 (>60 ml/min/1.73 sqM) Glucose 129 H (74-99) mg/dL Calcium 10.3 H (8.4-10.2) mg/dL Magnesium 2.0 (1.6-2.3) mg/dL Total Bilirubin 1.2 (0.2-1.3) mg/dL AST 24 (14-36) U/L ALT 17 (4-34) U/L Alkaline Phosphatase 72 (38-126) U/L Troponin I (0.000-0.034) ng/mL Total Protein 8.2 (6.3-8.2) g/dL Albumin 5.1 H (3.5-5.0) g/dL 05/19/24 Range/Units 13:31 WBC (3.8-10.6) k/uL RBC (3.80-5.40) m/uL Hgb (11.4-16.0) gm/dL Hct (34.0-46.0) % MCV (80.0-100.0) fL MCH (25.0-35.0) pg MCHC (31.0-37.0) g/dL RDW (11.5-15.5) % Plt Count (150-450) k/uL MPV Neutrophils % % Lymphocytes % % Monocytes % % Eosinophils % % Basophils % % Neutrophils # (1.3-7.7) k/uL Lymphocytes # (1.0-4.8) k/uL Monocytes # (0-1.0) k/uL Eosinophils # (0-0.7) k/uL Basophils # (0-0.2) k/uL PT (10.0-12.5) sec INR (<1.2) APTT (22.0-30.0) sec Sodium (137-145) mmol/L Potassium (3.5-5.1) mmol/L Chloride (98-107) mmol/L Carbon Dioxide (22-30) mmol/L Anion Gap mmol/L BUN (7-17) mg/dL Creatinine (0.52-1.04) mg/dL Est GFR (CKD-EPI)AfAm (>60 ml/min/1.73 sqM) Est GFR (CKD-EPI)NonAf (>60 ml/min/1.73 sqM) Glucose (74-99) mg/dL Calcium (8.4-10.2) mg/dL Magnesium (1.6-2.3) mg/dL Total Bilirubin (0.2-1.3) mg/dL AST (14-36) U/L ALT (4-34) U/L Alkaline Phosphatase (38-126) U/L Troponin I <0.012 (0.000-0.034) ng/mL Total Protein (6.3-8.2) g/dL Albumin (3.5-5.0) g/dL Disposition Clinical Impression: Hyponatremia, Hyperkalemia, Generalized weakness, Chest pain Disposition: ADMITTED IP TO THIS HOSP Referrals: Dayana Lyon MD [Primary Care Provider] - 1-2 days Time of Disposition: 14:37
[2024-05-19 13:41] LABS: Basophils % (A) 0 %; Eosinophils # (A) 0.1 k/uL (0-0.7); Eosinophils % (A) 1 %; HCT 45.3 % (34.0-46.0); HGB 15.3 gm/dL (11.4-16.0); Lymphocytes # (A) 0.9 k/uL (1.0-4.8); Lymphocytes % (A) 6 %; MCH 31.3 pg (25.0-35.0); MCHC 33.8 g/dL (31.0-37.0); MCV 92.6 fL (80.0-100.0); Mean Platelet Volume 6.3; Monocytes # (A) 0.7 k/uL (0-1.0); Monocytes % (A) 5 %; Neutrophils # (A) 14.8 k/uL (1.3-7.7); Neutrophils % (A) 89 %; Platelet Count 537 k/uL (150-450); RBC 4.89 m/uL (3.80-5.40); RDW 11.7 % (11.5-15.5); WBC 16.7 k/uL (3.8-10.6)
[2024-05-19 14:04] LABS: ALT 17 U/L (4-34); AST 24 U/L (14-36); African American GFR (CKD) 80 (>60 ml/min/1.73 sqM); Albumin 5.1 g/dL (3.5-5.0); Alkaline Phosphatase 72 U/L (38-126); Anion Gap 9 mmol/L; Blood Urea Nitrogen 19 mg/dL (7-17); Calcium 10.3 mg/dL (8.4-10.2); Carbon Dioxide 28 mmol/L (22-30); Chloride 78 mmol/L (98-107); Glucose 129 mg/dL (74-99); Non-African American GFR(CKD) 70 (>60 ml/min/1.73 sqM); Total Bilirubin 1.2 mg/dL (0.2-1.3); Total Protein 8.2 g/dL (6.3-8.2)
[2024-05-19 14:11] LABS: Sodium 115 mmol/L (137-145)
[2024-05-19] MEDS: SODIUM CHLORIDE 0.9% 1,000 ML IV ONE (14:13)
[2024-05-19] MEDS: ASPIRIN 81 MG PO STA (14:13)
[2024-05-19] MEDS: ONDANSETRON 4 MG/2 ML VIAL IVP STA (14:15)
--- NOTE | 2024-05-19 14:17 | XR ---
EXAMINATION TYPE: XR chest 2V DATE OF EXAM: 05/19/2024 2:04 PM COMPARISON: Chest radiographs from 09/17/2019 TECHNIQUE: XR chest 2V Frontal and lateral views of the chest. CLINICAL INDICATION:Female, 73 years old with history of Chest Pain; FINDINGS: Lungs/Pleura: There is no evidence of pleural effusion, focal consolidation, or pneumothorax. Pulmonary vascularity: Unremarkable. Heart/mediastinum: Cardiomediastinal silhouette is unremarkable. Musculoskeletal: No acute osseous pathology. IMPRESSION: No acute cardiopulmonary disease/process. [facility], , 05/19/2024 2:15 PM
[2024-05-19 14:18] LABS: INR 0.9 (<1.2); Partial Thromboplastin Time 24.7 sec (22.0-30.0); Prothrombin Time 9.9 sec (10.0-12.5)
[2024-05-19] MEDS ORDERED: NITROGLYCERIN SL TABS 0.4 MG TAB SUBLINGUAL PRN (14:43)
[2024-05-19] MEDS: INSULIN REGULAR 100 UNIT/ML VIAL (IV) IV ONE (15:06)
[2024-05-19] MEDS: DEXTROSE 50% SYRINGE 50 ML IVP STA ×2 (15:08→17:50)
[2024-05-19] MEDS: CALCIUM CHLORIDE 100 MG/ML 10 ML SYRINGE IVP STA (15:11)
[2024-05-19] MEDS: SODIUM BICARB 8.4% 50 ML SYR (1 MEQ/ML) IV STA (15:12)
[2024-05-19] MEDS: NITROGLYCERIN OINT 1 INCH/GM PACKET TOPICAL STA (15:22)
[2024-05-19] MEDS: SODIUM ZIRCONIUM CYCLOSILICATE 10 GM PACKET PO ONE (15:37)
[2024-05-19] MEDS: ACETAMINOPHEN TAB 325 MG TAB PO PRN (16:01)
[2024-05-19 17:24] LABS: African American GFR (CKD) 85 (>60 ml/min/1.73 sqM); Anion Gap 10 mmol/L; Blood Urea Nitrogen 16 mg/dL (7-17); Calcium 10.4 mg/dL (8.4-10.2); Carbon Dioxide 29 mmol/L (22-30); Chloride 83 mmol/L (98-107); Non-African American GFR(CKD) 73 (>60 ml/min/1.73 sqM); Potassium 4.4 mmol/L (3.5-5.1); Sodium 122 mmol/L (137-145)
[2024-05-19] MEDS: NITROGLYCERIN OINT 1 INCH/GM PACKET TOPICAL SCH (17:39)
[2024-05-19 17:40] LABS: Glucose 46 mg/dL (74-99)
--- NOTE | 2024-05-19 18:00 | P.HPIM ---
History of Present Illness H&P Date: 05/19/24 History of present illness; 73-year-old female with PMH of asthma, GERD, hyperlipidemia, hypertension presents to the emergency department after feeling nauseous, weak, headaches and having a lack of appetite for the past 68 weeks. Additionally, she endorses having intermittent chest pain for the same period of time. She states the pain is centrally located, does not radiate, is not alleviated by any factors, and rates it at a 9/10. During these episodes of centrally located chest pain she does have some associated shortness of breath. She also notes having abdominal pain and nausea persistently from her stomach, which limits her ability to eat. The nausea is present with or without food and does not subside. As a result of this, she is unable to to have much oral intake. She states she really only has Vernor's after his wound in the microwave. She denies vomiting, diarrhea, diap horetic episodes, fever or chills. She notes having had episodes of lightheadedness when shifting from a seated position to standing too quickly, however this predates this time period and she has noticed this occurring for a while. She denies any history of smoking cigarettes, and states she drinks alcohol rarely. When seen at bedside this afternoon, she endorses having a headache however notes no chest pain or shortness of breath, however she does note some mild abdominal pain with associated nausea. Labratory review: -WBC 16.7, hemoglobin 15.3, hematocrit 45.3, platelet 537; sodium 115, potassium 6.0, chloride 78, bicarbonate 28, BUN 19, creatinine 0.84, calcium 10.3, magnesium 2.0, total bilirubin 1.2, AST 24, ALT 70, alkaline phosphatase 72, albumin 5.1 Imaging: -Chest x-ray done in the ER interpreted independently showed no evidence of acute cardiopulmonary process -EKG done in the ER showed heart rate of 102, no ST segment elevation or depression seen, no T-wave inversions seen. Vitals: Blood pressure 149/80, heart rate 105, respiratory rate 17, SpO2 98% on room air Patient admitted to internal medicine service REVIEW OF SYSTEMS: Pertinent positives and negatives noted in HPI. The rest of the 14-point review of systems is negative. Physical Exam: General: nontoxic, no distress, appears at stated age; cachectic/thin appearing Derm: warm, dry, intact Head: atraumatic, normocephalic, symmetric Eyes: EOMI, anicteric sclera Mouth: no lip lesion, mucus membranes moist Cardiovascular: S1 S2 reg, no murmur, rubs, or gallops Lungs: CTA bilateral, no rales, no accessory muscle use Abdominal: soft, no appreciable organomegaly; tenderness to palpation in the left sided mid epigastric area radiating down to the left groin area Extremities: no gross muscle atrophy, no edema, no contractures Neuro: Alert, Oriented, CNII-XII grossly intact, gait normal Psych: well appearing, appropriate affect Assessment and plan 73-year-old female with PMH of asthma, GERD, hyperlipidemia, hypertension presents emergency department after 6-8 weeks of feeling nauseous, weak and having a lack of appetite. Coming in with severe hyponatremia. #Asymptomatic severe hypovolemic, likely chronic, hyponatremia #Hypercalcemia #SIRS criteria met #Leukocytosis, likely reactive #Thrombocytosis -Initial sodium on presentation 115 -Continue to monitor CBC -Patient received 1 L normal saline bolus -Stat BMP to monitor to assess for rapid rise in serum sodium; repeat BMP showed sodium 122, increase of 7 -Recheck BMP at 1900, if sodium increase greater than 8 mEq (from presentation at sodium 115) begin D5W -Recheck sodium every hour -TSH pending -Urine sodium and urine osmolality currently pending -Lipid panel currently pending, rule out lipemic serum -Hold triamterene/hydrochlorothiazide -Nephrology consulted #Hyperkalemia, of unknown etiology, likely medication induced -Hold triamterene/hydrochlorothiazide -Patient received 10 unit insulin, 50 mL dextrose 50% syringe, 1000 mg calcium chloride and 10 g Lokelma in the ED #Hypoglycemia secondary to treatment for above -Monitor blood glucose every hour #Atypical chest pain, rule out ACS -Trend troponins; initial troponin <0.012 -Initiate aspirin 81 mg daily and Lipitor 40 mg nightly -Lipid panel currently pending -EKG done in the ED independently reviewed and assessed -Cardiology consulted -Cardiac monitoring #SIRS criteria met #Leukocytosis, likely reactive #Thrombocytosis -Continue to monitor CBC -Patient received 1 L normal saline bolus #Hypertension -Resume 5 mg Zestril daily GI prophylaxis: Not indicated DVT prophylaxis: Lovenox 4 mg subcu daily The patient is admitted with an anticipated more than than 2 midnight stay for evaluation of severe hyponatremia Anticipated discharge place: Pending clinical course Dictation was produced using [employer] dictation software. please excuse any grammatical, word or spelling errors. I have seen and evaluated the patient today. Discussed with the resident and agree with the residents finding and plan as documented in the resident's note. Changes highlighted in blue font. Past Medical History Past Medical History: Asthma, GERD/Reflux, Hyperlipidemia, Hypertension, Pneumonia Additional Past Medical History / Comment(s): Bronchitis, small hiatal hernia, constipation, IBS, occasional UTIs, chronic back pain. History of Any Multi-Drug Resistant Organisms: None Reported Past Surgical History: Tonsillectomy, Tubal Ligation Additional Past Surgical History / Comment(s): EGD, colonoscopies Past Anesthesia/Blood Transfusion Reactions: No Reported Reaction Past Psychological History: Anxiety, Depression Smoking Status: Never smoker Past Alcohol Use History: Rare Past Drug Use History: None Reported - Past Family History Mother History Unknown: Yes Additional Family Medical History / Comment(s): Mother is Father History Unknown: Yes Additional Family Medical History / Comment(s): Father is . Medications and Allergies Home Medications Medication Instructions Recorded Confirmed Type Citalopram Hydrobromide [CeleXA] 40 mg PO DAILY 10/13/15 05/19/24 History Atorvastatin [Lipitor] 10 mg PO HS 09/11/23 05/19/24 History lisinopriL [Zestril] 5 mg PO DAILY 09/11/23 05/19/24 History Baclofen [Lioresal] 20 mg PO HS 05/19/24 05/19/24 History Calcium Carbonate [Calcium] 600 mg PO DAILY 05/19/24 05/19/24 History Triamterene/Hydrochlorothiazid 1 tab PO DAILY 05/19/24 05/19/24 History [Triamterene-Hctz 37.5-25 mg Tb] prednisoLONE ACETATE 1% OPHTH 1 drops BOTH EYES BID 05/19/24 05/19/24 History [Pred Forte 1%] traMADol HCL 50 mg PO BID PRN 05/19/24 05/19/24 History Allergies Allergy/AdvReac Type Severity Reaction Status Date / Time clarithromycin [From Biaxin] Allergy Unknown Verified 05/19/24 16:15 metronidazole [From Flagyl] Allergy Unknown Verified 05/19/24 16:15 Physical Exam Vitals: Vital Signs Temp Pulse Resp BP Pulse Ox 05/19/24 14:34 99 18 164/96 97 05/19/24 12:02 98.3 F 105 H 17 149/80 98 Intake and Output 05/19/24 05/19/24 05/19/24 06:59 14:59 22:59 Other: Weight 46.72 kg Results CBC & Chem 7: 05/19/24 13:31 05/19/24 16:20 Labs: Abnormal Lab Results - Last 24 Hours (Table) 05/19/24 05/19/24 05/19/24 Range/Units 13:31 13:31 13:31 WBC 16.7 H (3.8-10.6) k/uL Plt Count 537 H (150-450) k/uL Neutrophils # 14.8 H (1.3-7.7) k/uL Lymphocytes # 0.9 L (1.0-4.8) k/uL PT 9.9 L (10.0-12.5) sec Sodium 115 L* (137-145) mmol/L Potassium 6.0 H (3.5-5.1) mmol/L Chloride 78 L (98-107) mmol/L BUN 19 H (7-17) mg/dL Glucose 129 H (74-99) mg/dL Calcium 10.3 H (8.4-10.2) mg/dL Albumin 5.1 H (3.5-5.0) g/dL
[2024-05-19 18:13] LABS: Glucose,Whole Blood 169 mg/dL (70-110)
[2024-05-19 20:01] LABS: African American GFR (CKD) 80 (>60 ml/min/1.73 sqM); Anion Gap 8 mmol/L; Blood Urea Nitrogen 18 mg/dL (7-17); Calcium 9.9 mg/dL (8.4-10.2); Carbon Dioxide 29 mmol/L (22-30); Chloride 82 mmol/L (98-107); Glucose 107 mg/dL (74-99); Non-African American GFR(CKD) 69 (>60 ml/min/1.73 sqM); Potassium 4.6 mmol/L (3.5-5.1)
[2024-05-19 20:09] LABS: Sodium 119 mmol/L (137-145)
[2024-05-19 20:17] LABS: Glucose,Whole Blood 119 mg/dL (70-110)
[2024-05-19] MEDS: BACLOFEN 10 MG TAB PO SCH (20:27)
[2024-05-19] MEDS: ATORVASTATIN 40 MG TAB PO SCH (20:27)
[2024-05-20 00:57] LABS: Glucose,Whole Blood 96 mg/dL (70-110)
[2024-05-20 04:31] LABS: Glucose,Whole Blood 92 mg/dL (70-110)
[2024-05-20 06:26] LABS: Glucose,Whole Blood 96 mg/dL (70-110)
[2024-05-20] MEDS: ENOXAPARIN 40 MG/0.4 ML SYRINGE SQ SCH (08:29)
[2024-05-20] MEDS: lisinopriL 5 MG TAB PO SCH (08:29)
[2024-05-20] MEDS: ASPIRIN 81 MG PO SCH (08:29)
[2024-05-20 08:54] LABS: Basophils # (A) 0.1 k/uL (0-0.2); Basophils % (A) 0 %; Eosinophils # (A) 0.1 k/uL (0-0.7); Eosinophils % (A) 1 %; HCT 40.7 % (34.0-46.0); HGB 13.4 gm/dL (11.4-16.0); Lymphocytes # (A) 3.2 k/uL (1.0-4.8); Lymphocytes % (A) 27 %; MCH 30.8 pg (25.0-35.0); MCHC 32.8 g/dL (31.0-37.0); MCV 93.8 fL (80.0-100.0); Mean Platelet Volume 6.4; Monocytes # (A) 1.1 k/uL (0-1.0); Monocytes % (A) 9 %; Neutrophils # (A) 7.2 k/uL (1.3-7.7); Neutrophils % (A) 61 %; Platelet Count 474 k/uL (150-450); RBC 4.34 m/uL (3.80-5.40); RDW 11.8 % (11.5-15.5); WBC 11.9 k/uL (3.8-10.6)
[2024-05-20] MEDS ORDERED: ASPIRIN 325 MG TAB PO SCH (09:00)
[2024-05-20 09:04] LABS: African American GFR (CKD) 75 (>60 ml/min/1.73 sqM); Anion Gap 4 mmol/L; Blood Urea Nitrogen 16 mg/dL (7-17); Calcium 9.2 mg/dL (8.4-10.2); Carbon Dioxide 33 mmol/L (22-30); Chloride 82 mmol/L (98-107); Glucose 89 mg/dL (74-99); Non-African American GFR(CKD) 65 (>60 ml/min/1.73 sqM); Potassium 4.6 mmol/L (3.5-5.1)
[2024-05-20 09:08] LABS: Sodium 119 mmol/L (137-145)
[2024-05-20 09:13] LABS: Chol/HDL Ratio 1.46 Ratio; LDL Cholesterol,Calculated 33.8 mg/dL (0.0-131.0); VLDL Calculation 9.16 mg/dL (5.00-40.00)
--- NOTE | 2024-05-20 10:26 | P.CRDCN ---
History of Present Illness History of present illness: HISTORY OF PRESENT ILLNESS: This is a 73-year-old female with a past medical history significant for hypertension and hyperlipidemia. 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 We have been asked to see the patient in consultation for chest pain. Patient examined at the bedside in the emergency room. Patient presented to the hospital with a chief complaint of an upset stomach. She reports nausea but denies any vomiting yesterday. She states that she has been sick for the past 2 months dealing with nausea and vomiting. She states she is unsure of the cause of this. She reports having chest pain yesterday that is worse with coughing and worse when she experiences nausea. This morning she does complain of chest pain that is reproducible with chest wall palpation. She reports feeling dizzy and nauseated at the time of examination. DIAGNOSTICS: - EKG reveals sinus mechanism with no signs of acute ischemia. - Chest xray negative for acute process. - Laboratory data: WBC 16.7. Hemoglobin 15.3. Platelet count 537. Sodium 119. Potassium 4.6. BUN 19. Creatinine 0.85. Magnesium 2.0. Troponin negative x 3 - Current home cardiac medications include Lipitor 10 mg at night, lisinopril 5 mg daily, triamterene-hydrochlorothiazide 37-25 mg daily. - Most recent echocardiogram obtained in July 2020 reveals ejection fraction 55 to 60%, mild MR, mild TR. - Patient underwent stress echo in August 2019 which was negative for ischemia REVIEW OF SYSTEMS: At the time of my exam: CONSTITUTIONAL: Denies fever or chills. HEENT: Denies blurred vision, vision changes, or eye pain. Denies hemoptysis CARDIOVASCULAR: Denies chest pain. Denies orthopnea. Denies PND. Denies pa lpitations RESPIRATORY: Denies shortness of breath. GASTROINTESTINAL: Denies abdominal pain. Denies nausea or vomiting. HEMATOLOGIC: Denies bleeding disorders. GENITOURINARY: Denies any blood in urine. SKIN: Denies pruitis. Denies rash. PHYSICAL EXAM: VITAL SIGNS: Reviewed. GENERAL: Well-developed in no acute distress. HEENT: Head is normocephalic. Pupils are equal, round. Sclerae anicteric. Mucous membranes of the mouth are moist. Neck supple. No JVD or thyromegaly LUNGS: Respirations even and unlabored. Lungs essentially clear to auscultation bilaterally. HEART: Regular rate and rhythm. S1 and S2 heard. 2/6 systolic murmur ABDOMEN: Soft. Nondistended. Nontender. EXTREMITIES: Normal range of motion. No clubbing or cyanosis. Peripheral pulses intact. Trace bilateral lower extremity edema NEUROLOGIC: Awake and alert. Oriented x 3. ASSESSMENT: Chest pain, reproducible, troponin negative x 3, noncardiac Nausea and vomiting, x 2 months per patient with unknown etiology Hyponatremia Hyperkalemia, 6.0 on admission, improved Hypertension Hyperlipidemia PLAN: An acute coronary event has been ruled out Obtain 2D echo to assess cardiac structure and function Hold diuretics secondary to hyponatremia Discontinue Nitropaste No plans for inpatient stress testing at this time Nephrology following for hyponatremia Further recommendations pending patient course Nurse practitioner note has been reviewed by physician. Signing provider agrees with the documented findings, assessment, and plan of care documented by RESIDENTIAL PLUMBER as a scribe. Past Medical History Past Medical History: Asthma, GERD/Reflux, Hyperlipidemia, Hypertension, Pneumonia Additional Past Medical History / Comment(s): Bronchitis, small hiatal hernia, constipation, IBS, occasional UTIs, chronic back pain. History of Any Multi-Drug Resistant Organisms: None Reported Past Surgical History: Tonsillectomy, Tubal Ligation Additional Past Surgical History / Comment(s): EGD, colonoscopies Past Anesthesia/Blood Transfusion Reactions: No Reported Reaction Past Psychological History: Anxiety, Depression Smoking Status: Never smoker Past Alcohol Use History: Rare Past Drug Use History: None Reported - Past Family History Mother History Unknown: Yes Additional Family Medical History / Comment(s): Mother is Father History Unknown: Yes Additional Family Medical History / Comment(s): Father is . Medications and Allergies Home Medications Medication Instructions Recorded Confirmed Type Citalopram Hydrobromide [CeleXA] 40 mg PO DAILY 10/13/15 05/19/24 History Atorvastatin [Lipitor] 10 mg PO HS 09/11/23 05/19/24 History lisinopriL [Zestril] 5 mg PO DAILY 09/11/23 05/19/24 History Baclofen [Lioresal] 20 mg PO HS 05/19/24 05/19/24 History Calcium Carbonate [Calcium] 600 mg PO DAILY 05/19/24 05/19/24 History Triamterene/Hydrochlorothiazid 1 tab PO DAILY 05/19/24 05/19/24 History [Triamterene-Hctz 37.5-25 mg Tb] prednisoLONE ACETATE 1% OPHTH 1 drops BOTH EYES BID 05/19/24 05/19/24 History [Pred Forte 1%] traMADol HCL 50 mg PO BID PRN 05/19/24 05/19/24 History Allergies Allergy/AdvReac Type Severity Reaction Status Date / Time clarithromycin [From Biaxin] Allergy Unknown Verified 05/19/24 16:15 metronidazole [From Flagyl] Allergy Unknown Verified 05/19/24 16:15 Physical Exam Vitals: Vital Signs Temp Pulse Pulse Resp BP Pulse Ox 05/20/24 07:51 84 18 05/20/24 06:00 82 17 113/77 98 05/20/24 04:00 70 17 107/70 05/20/24 00:54 90 17 116/73 05/19/24 20:14 105 H 18 135/80 05/19/24 17:00 78 16 138/78 97 05/19/24 15:28 98 18 156/86 96 05/19/24 14:34 99 18 164/96 97 05/19/24 12:02 98.3 F 105 H 17 149/80 98 Intake and Output 05/19/24 05/20/24 05/20/24 22:59 06:59 14:59 Other: Voiding Method Toilet Results 05/20/24 08:27 05/20/24 08:27 Cardiac Enzymes 05/19/24 05/19/24 05/19/24 Range/Units 13:31 13:31 16:14 AST 24 (14-36) U/L Troponin I <0.012 <0.012 (0.000-0.034) ng/mL 05/19/24 Range/Units 18:58 AST (14-36) U/L Troponin I <0.012 (0.000-0.034) ng/mL Coagulation 05/19/24 Range/Units 13:31 PT 9.9 L (10.0-12.5) sec APTT 24.7 (22.0-30.0) sec CBC 05/19/24 Range/Units 13:31 WBC 16.7 H (3.8-10.6) k/uL RBC 4.89 (3.80-5.40) m/uL Hgb 15.3 (11.4-16.0) gm/dL Hct 45.3 (34.0-46.0) % Plt Count 537 H (150-450) k/uL Comprehensive Metabolic Panel 05/19/24 05/19/24 05/19/24 Range/Units 13:31 16:20 18:58 Sodium 115 L* 122 L 119 L* (137-145) mmol/L Potassium 6.0 H 4.4 (3.5-5.1) mmol/L Chloride 78 L 83 L (98-107) mmol/L Carbon Dioxide 28 29 (22-30) mmol/L BUN 19 H 16 (7-17) mg/dL Creatinine 0.84 0.81 (0.52-1.04) mg/dL Glucose 129 H 46 L* (74-99) mg/dL Calcium 10.3 H 10.4 H (8.4-10.2) mg/dL AST 24 (14-36) U/L ALT 17 (4-34) U/L Alkaline Phosphatase 72 (38-126) U/L Total Protein 8.2 (6.3-8.2) g/dL Albumin 5.1 H (3.5-5.0) g/dL 05/19/24 05/19/24 Range/Units 18:58 20:17 Sodium 119 L* 119 L* (137-145) mmol/L Potassium 4.6 (3.5-5.1) mmol/L Chloride 82 L (98-107) mmol/L Carbon Dioxide 29 (22-30) mmol/L BUN 18 H (7-17) mg/dL Creatinine 0.85 (0.52-1.04) mg/dL Glucose 107 H (74-99) mg/dL Calcium 9.9 (8.4-10.2) mg/dL AST (14-36) U/L ALT (4-34) U/L Alkaline Phosphatase (38-126) U/L Total Protein (6.3-8.2) g/dL Albumin (3.5-5.0) g/dL Current Medications Generic Name Dose Route Start Last Admin Trade Name Freq PRN Reason Stop Dose Admin Acetaminophen 650 mg 05/19/24 15:47 05/20/24 00:59 Acetaminophen Tab 325 Mg Tab PO 650 mg Q6HR PRN Administration Fever and/ or Pain Aspirin 81 mg 05/20/24 09:00 Aspirin 81 Mg PO DAILY [facility] Atorvastatin Calcium 40 mg 05/19/24 21:00 05/19/24 20:27 Atorvastatin 40 Mg Tab PO 40 mg HS DEVANG Administration Baclofen 20 mg 05/19/24 21:00 05/19/24 20:27 Baclofen 10 Mg Tab PO 20 mg HS DEVANG Administration Enoxaparin Sodium 40 mg 05/20/24 09:00 Enoxaparin 40 Mg/0.4 Ml Syringe SQ DAILY [facility] Lisinopril 5 mg 05/20/24 09:00 Lisinopril 5 Mg Tab PO DAILY [facility] Nitroglycerin 0.4 mg 05/19/24 14:43 Nitroglycerin Sl Tabs 0.4 Mg Tab SUBLINGUAL Q5M PRN Chest Pain Nitroglycerin 1 inch 05/19/24 18:00 05/20/24 05:11 Nitroglycerin Oint 1 Inch/Gm Packet TOPICAL Not Given Q6HR [facility] Intake and Output 05/19/24 05/20/24 05/20/24 22:59 06:59 14:59 Other: Voiding Method Toilet 05/19/24 13:31 05/19/24 20:17
[2024-05-20] MEDS: SODIUM CHLORIDE 0.9% 1,000 ML IV SCH (10:41)
[2024-05-20] MEDS: ONDANSETRON 4 MG/2 ML VIAL IVP PRN (10:41)
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
--- NOTE | 2024-05-20 11:22 | P.NPCON ---
History of Present Illness - Reason for Consult hyponatremia - History of Present Illness Patient is a 73-year-old female with history of hypertension and asthma who is admitted to the hospital with complaints of nausea, weakness and headaches. This has been going on for about 5 to 6 weeks. Patient has had very poor oral intake. She denies any diarrhea. No history of use of NSAIDs. She has been lightheaded and dizzy. No previous history of hyponatremia. Serum sodium was 115 in the ER. Patient received a fluid bolus of normal saline and repeat sodium was up to 122. Fluids were held and serum sodium is now staying at 119. Blood pressure is not low Urine osmolality 198 urine sodium 58. Thiazides noted on home med list. This is not new per patient. Past Medical History Past Medical History: Asthma, GERD/Reflux, Hyperlipidemia, Hypertension, Pneumonia Additional Past Medical History / Comment(s): Bronchitis, small hiatal hernia, constipation, IBS, occasional UTIs, chronic back pain. History of Any Multi-Drug Resistant Organisms: None Reported Past Surgical History: Tonsillectomy, Tubal Ligation Additional Past Surgical History / Comment(s): EGD, colonoscopies Past Anesthesia/Blood Transfusion Reactions: No Reported Reaction Past Psychological History: Anxiety, Depression Smoking Status: Never smoker Past Alcohol Use History: Rare Past Drug Use History: None Reported - Past Family History Mother History Unknown: Yes Additional Family Medical History / Comment(s): Mother is Father History Unknown: Yes Additional Family Medical History / Comment(s): Father is . Medications and Allergies Home Medications Medication Instructions Recorded Confirmed Type Citalopram Hydrobromide [CeleXA] 40 mg PO DAILY 10/13/15 05/19/24 History Atorvastatin [Lipitor] 10 mg PO HS 09/11/23 05/19/24 History lisinopriL [Zestril] 5 mg PO DAILY 09/11/23 05/19/24 History Baclofen [Lioresal] 20 mg PO HS 05/19/24 05/19/24 History Calcium Carbonate [Calcium] 600 mg PO DAILY 05/19/24 05/19/24 History Triamterene/Hydrochlorothiazid 1 tab PO DAILY 05/19/24 05/19/24 History [Triamterene-Hctz 37.5-25 mg Tb] prednisoLONE ACETATE 1% OPHTH 1 drops BOTH EYES BID 05/19/24 05/19/24 History [Pred Forte 1%] traMADol HCL 50 mg PO BID PRN 05/19/24 05/19/24 History Allergies Allergy/AdvReac Type Severity Reaction Status Date / Time clarithromycin [From Biaxin] Allergy Unknown Verified 05/19/24 16:15 metronidazole [From Flagyl] Allergy Unknown Verified 05/19/24 16:15 Physical Exam Vitals: Vital Signs Temp Pulse Pulse Resp BP Pulse Ox 05/20/24 10:00 81 16 111/72 97 05/20/24 08:00 78 18 111/68 98 05/20/24 07:51 84 18 05/20/24 06:00 82 17 113/77 98 05/20/24 04:00 70 17 107/70 05/20/24 00:54 90 17 116/73 05/19/24 20:14 105 H 18 135/80 05/19/24 17:00 78 16 138/78 97 05/19/24 15:28 98 18 156/86 96 05/19/24 14:34 99 18 164/96 97 05/19/24 12:02 98.3 F 105 H 17 149/80 98 Intake and Output 05/19/24 05/20/24 05/20/24 22:59 06:59 14:59 Other: Voiding Method Toilet Patient is awake, comfortable, no acute distress. 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 Hypovolemic hyponatremia improved with normal saline. IV fluids were held yesterday due to rapid increase in serum sodium. I will restart normal saline and repeat sodium in about 4 hours. Urine osmolality 198 and random urine sodium 58. Continue to hold off on thiazide diuretics. 2. Hypercalcemia associated with calcium supplementation. Calcium has improved to 9.2. Thiazide diuretics can be associated with hypercalcemia as well due to decrease calcium excretion in the urine. Patient was also taking calcium supplements. 3. Hyperkalemia associated with MELISSA inhibitors and potassium sparing diuretics, improved. 4. Volume depletion Plan: Resume normal saline at 75 cc an hour. Repeat sodium in 4 hours Encouraged increased oral intake particularly protein Continue to hold thiazide and MELISSA inhibitor's. Blood pressure is currently not elevated. Avoid calcium supplementation. Check 25-hydroxy vitamin D level Thank you for the consultation. We will continue to follow the patient with you during her hospitalization.
[2024-05-20 11:26] LABS: Influenza A Not Detected (Not Detectd); Influenza B Not Detected (Not Detectd); RSV Not Detected (Not Detectd)
[2024-05-20 18:26] LABS: African American GFR (CKD) 70 (>60 ml/min/1.73 sqM); Anion Gap 4 mmol/L; Blood Urea Nitrogen 19 mg/dL (7-17); Calcium 8.8 mg/dL (8.4-10.2); Carbon Dioxide 32 mmol/L (22-30); Chloride 84 mmol/L (98-107); Glucose 90 mg/dL (74-99); Non-African American GFR(CKD) 60 (>60 ml/min/1.73 sqM); Potassium 5.1 mmol/L (3.5-5.1); Sodium 120 mmol/L (137-145)
[2024-05-20] MEDS: SODIUM CHLORIDE TAB 1 GM TAB PO STA (21:13)
[2024-05-21] MEDS: traMADol 50 MG TAB PO STA (04:13)
[2024-05-21 05:19] LABS: Basophils % (A) 0 %; Eosinophils # (A) 0.2 k/uL (0-0.7); Eosinophils % (A) 2 %; HCT 41.5 % (34.0-46.0); HGB 13.8 gm/dL (11.4-16.0); Lymphocytes # (A) 2.2 k/uL (1.0-4.8); Lymphocytes % (A) 20 %; MCH 31.4 pg (25.0-35.0); MCHC 33.2 g/dL (31.0-37.0); MCV 94.7 fL (80.0-100.0); Mean Platelet Volume 7.2; Monocytes # (A) 0.9 k/uL (0-1.0); Monocytes % (A) 8 %; Neutrophils # (A) 7.4 k/uL (1.3-7.7); Neutrophils % (A) 68 %; Platelet Count 474 k/uL (150-450); RBC 4.38 m/uL (3.80-5.40); RDW 12.3 % (11.5-15.5); WBC 10.8 k/uL (3.8-10.6)
[2024-05-21 05:31] LABS: African American GFR (CKD) 83 (>60 ml/min/1.73 sqM); Anion Gap 7 mmol/L; Blood Urea Nitrogen 18 mg/dL (7-17); Calcium 8.1 mg/dL (8.4-10.2); Carbon Dioxide 26 mmol/L (22-30); Chloride 89 mmol/L (98-107); Glucose 89 mg/dL (74-99); Non-African American GFR(CKD) 72 (>60 ml/min/1.73 sqM); Potassium 4.7 mmol/L (3.5-5.1); Sodium 122 mmol/L (137-145)
[2024-05-21] MEDS ORDERED: NALOXONE 0.4 MG/ML 1 ML VIAL IVP PRN (06:08)
[2024-05-21] MEDS: MORPHINE SULFATE 2 MG/ML SYRINGE IVP STA (06:12)
--- NOTE | 2024-05-21 06:41 | P.EN ---
Patient had complaints of severe abdominal pain. On physical exam: diffuse tenderness to palpation greater on right than left, bowel sounds present, no rebound or guarding, nondistended. Patient has not had a bowel movement since admission with minimal oral intake. WBCs trending down. Patient has been afebrile. XR abdomen acute with CXR orderedif negative consider CT abdomen.
--- NOTE | 2024-05-21 06:53 | XR ---
EXAM: XR Abdomen, 2 Views and XR Chest, 1 View CLINICAL HISTORY: ITS.REASON XR Reason: acute abdomen TECHNIQUE: Frontal view of the chest, frontal view of the abdomen/pelvis and upright or decubitus view of the abdomen. COMPARISON: No relevant prior studies available. IMPRESSION: 1. No evidence of free air. 2. No evidence of bowel obstruction. 3. No acute cardiopulmonary abnormality. 4. Consider cross-sectional imaging if there is further concern.
[2024-05-21] MEDS: SODIUM CHLORIDE TAB 1 GM TAB PO STA (09:51)
--- NOTE | 2024-05-21 10:20 | CA ---
Transthoracic Echo Report Name: Gail Villalta Age: 73 Gender: F : 1950 Exam Date: 05/20/2024 15:11 Exam Location: [facility] Ht (in): 62 Wt (lb): 103 Ordering Physician: Shandra Lozano Attending/Referring Phys: [id number], Blake Senior Systems Architect Margarette Toro RDCS Procedure CPT: Indications: CP, lv function Cardiac Hx: Technical Quality: Good Contrast 1: Total Dose (mL): Contrast 2: Total Dose (mL): MEASUREMENTS (Male / Female) Normal Values 2D ECHO LV Diastolic Diameter PLAX 3.2 cm 4.2 - 5.9 / 3.9 - 5.3 cm LV Systolic Diameter PLAX 2.2 cm IVS Diastolic Thickness 1.2 cm 0.6 - 1.0 / 0.6 - 0.9 cm LVPW Diastolic Thickness 0.9 cm 0.6 - 1.0 / 0.6 - 0.9 cm LV Relative Wall Thickness 0.7 RV Internal Dim ED PLAX 2.4 cm LA Systolic Diameter LX 2.7 cm 3.0 - 4.0 / 2.7 - 3.8 cm LV Diastolic Volume MOD 4C 36.0 cm??? LV Systolic Volume MOD 4C 17.7 cm??? LV Ejection Fraction MOD 4C 50.8 % LV Cardiac Index MOD 4C 1114.4 cm???/min???m??? LV Diastolic Length 4C 6.3 cm LV Systolic Length 4C 5.3 cm LV Diastolic Volume MOD 2C 44.6 cm??? LV Systolic Volume MOD 2C 22.8 cm??? LV Ejection Fraction MOD 2C 48.9 % LV Cardiac Index MOD 2C 1331.4 cm???/min???m??? LV Diastolic Length 2C 6.0 cm LV Systolic Length 2C 4.8 cm LA Volume 27.5 cm??? 18 - 58 / 22 - 52 cm??? LA Volume Index 19.3 cm???/m??? 16 - 28 cm???/m??? M-MODE Aortic Root Diameter MM 3.0 cm DOPPLER AV Peak Velocity 159.4 cm/s AV Peak Gradient 10.2 mmHg MV Area PHT 2.7 cm??? Mitral E Point Velocity 72.4 cm/s Mitral A Point Velocity 101.5 cm/s Mitral E to A Ratio 0.7 MV Deceleration Time 279.3 ms TR Peak Velocity 231.1 cm/s TR Peak Gradient 21.4 mmHg Right Ventricular Systolic Press 26.3 mmHg FINDINGS Left Ventricle Left ventricular ejection fraction is estimated at 55-60 %. Small left ventricular cavity. Mildly increased septal wall thickness. Normal left ventricular wall motion. Right Ventricle Normal right ventricular size. Right ventricular systolic pressure within normal limits. Right Atrium Normal right atrial size. No right atrial thrombus or mass seen. Left Atrium Normal left atrial size. No left atrial thrombus or mass present. Mitral Valve Mitral valve not well visualized. Mild mitral regurgitation. Aortic Valve Trileaflet aortic valve. No aortic valve stenosis or regurgitation. Tricuspid Valve Structurally normal tricuspid valve. Mild tricuspid regurgitation. Pulmonic Valve Pulmonic valve not well visualized. Trace to mild pulmonic regurgitation. Pericardium No pericardial effusion. Aorta Normal size aortic root and proximal ascending aorta. CONCLUSIONS Normal biventricular systolic function No significant valvular abnormalities noted Normal pulmonary artery systolic pressure No pericardial effusion Previewed by: Dr. Flex Millard MD (Electronically Signed) Final Date: 21 May 2024 10:19
[2024-05-21] MEDS ORDERED: IOPAMIDOL CONTRAST (ORAL USE) VIAL PO PRN (11:01)
--- NOTE | 2024-05-21 11:27 | P.PN ---
Subjective HISTORY OF PRESENT ILLNESS: This is a 73-year-old female with a past medical history significant for hypertension and hyperlipidemia. 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 We have been asked to see the patient in consultation for chest pain. Patient examined at the bedside in the emergency room. Patient presented to the hospital with a chief complaint of an upset stomach. She reports nausea but denies any vomiting yesterday. She states that she has been sick for the past 2 months dealing with nausea and vomiting. She states she is unsure of the cause of this. She reports having chest pain yesterday that is worse with coughing and worse when she experiences nausea. This morning she does complain of chest pain that is reproducible with chest wall palpation. She reports feeling dizzy and nauseated at the time of examination. DIAGNOSTICS: - EKG reveals sinus mechanism with no signs of acute ischemia. - Chest xray negative for acute process. - Laboratory data: WBC 16.7. Hemoglobin 15.3. Platelet count 537. Sodium 119. Potassium 4.6. BUN 19. Creatinine 0.85. Magnesium 2.0. Troponin negative x 3 - Current home cardiac medications include Lipitor 10 mg at night, lisinopril 5 mg daily, triamterene-hydrochlorothiazide 37-25 mg daily. - Most recent echocardiogram obtained in July 2020 reveals ejection fraction 55 to 60%, mild MR, mild TR. - Patient underwent stress echo in August 2019 which was negative for ischemia 05/21/2024 Patient examined this morning at the bedside. Patient currently denies any shortness of breath or cough. She reports chest wall pain that is worse with palpation. She reports abdominal pain this morning. She also reports nausea and states she was unable to eat breakfast this morning. Sodium improved today to 122. Echocardiogram completed revealing ejection fraction 55 to 60%, mild MR, mild TR PHYSICAL EXAM: VITAL SIGNS: Reviewed. GENERAL: Well-developed in no acute distress. HEENT: Head is normocephalic. Pupils are equal, round. Sclerae anicteric. Mucous membranes of the mouth are moist. Neck supple. No JVD or thyromegaly LUNGS: Respirations even and unlabored. Lungs essentially clear to auscultation bilaterally. HEART: Regular rate and rhythm. S1 and S2 heard. 2/6 systolic murmur ABDOMEN: Soft. Nondistended. Nontender. EXTREMITIES: Normal range of motion. No clubbing or cyanosis. Peripheral pulses intact. Trace right sided lower extremity edema NEUROLOGIC: Awake and alert. Oriented x 3. ASSESSMENT: Chest pain, reproducible, troponin negative x 3, noncardiac Nausea and vomiting, x 2 months per patient with unknown etiology Hyponatremia Hyperkalemia, 6.0 on admission, improved Hypertension Hyperlipidemia PLAN: An acute coronary event has been ruled out Continue to hold diuretics secondary to hyponatremia No plans for inpatient stress testing at this time Nephrology following for hyponatremia Further evaluation of abdominal pain per primary medicine Patient is currently stable from a cardiac perspective We will sign off. Please reconsult if needed. Nurse practitioner note has been reviewed by physician. Signing provider agrees with the documented findings, assessment, and plan of care documented by LEAD PRINCIPAL TECHNICAL ARCHITECT as a scribe. Objective - Vital Signs Vital signs: Vital Signs Temp 97.3 F L 05/21/24 11:21 Pulse 70 05/21/24 11:21 Resp 16 05/21/24 11:21 BP 97/61 05/21/24 11:21 Pulse Ox 97 05/21/24 11:21 FiO2 Intake & Output 05/20/24 05/21/24 05/21/24 18:59 06:59 18:59 Intake Total 1200 Balance 1200 Weight 46.72 kg 54 kg Intake: IV 1200 Sodium Chloride 0.9% 1, 1200 000 ml @ 75 mls/hr IV . [id number] [facility] Rx#:[id number] Other: Voiding Method Toilet Toilet Toilet - Labs CBC & Chem 7: 05/21/24 04:23 05/21/24 04:23 Labs: Abnormal Lab Results - Last 24 Hours (Table) 05/20/24 05/20/24 05/20/24 Range/Units 14:02 17:56 17:56 WBC (3.8-10.6) k/uL Plt Count (150-450) k/uL Sodium 120 L 120 L 122 L (137-145) mmol/L Chloride 84 L (98-107) mmol/L Carbon Dioxide 32 H (22-30) mmol/L BUN 19 H (7-17) mg/dL Calcium (8.4-10.2) mg/dL 05/21/24 05/21/24 05/21/24 Range/Units 04:23 04:23 04:23 WBC 10.8 H (3.8-10.6) k/uL Plt Count 474 H (150-450) k/uL Sodium 122 L 122 L (137-145) mmol/L Chloride 89 L (98-107) mmol/L Carbon Dioxide (22-30) mmol/L BUN 18 H (7-17) mg/dL Calcium 8.1 L (8.4-10.2) mg/dL
--- NOTE | 2024-05-21 12:06 | P.PN ---
Subjective Patient is seen for follow-up for hyponatremia. Complaining of abdominal pain which started last night and scheduled for abdominal CT today. Serum sodium improved to 122 with normal saline and has not improved much more. It was 123 today. Patient received sodium chloride tab yesterday. No vomiting or diarrhea. Urine osmolality low at 198 and urine sodium was 58. Objective - Vital Signs Vital signs: Vital Signs Temp 97.3 F L 05/21/24 11:21 Pulse 70 05/21/24 11:21 Resp 16 05/21/24 11:21 BP 97/61 05/21/24 11:21 Pulse Ox 97 05/21/24 11:21 FiO2 Intake & Output 05/20/24 05/21/24 05/21/24 18:59 06:59 18:59 Intake Total 1200 Balance 1200 Weight 46.72 kg 54 kg Intake: IV 1200 Sodium Chloride 0.9% 1, 1200 000 ml @ 75 mls/hr IV . [id number] [facility] Rx#:[id number] Other: Voiding Method Toilet Toilet Toilet - Exam Patient is awake, comfortable, no acute distress. Examination of the heart S1 and S2 Examination of the lungs bilateral breath sounds are heard Abdomen is soft nontender Examination lower extremities shows no significant edema OPERATIONAL INTELLIGENCE OFFICER exam grossly intact - Labs CBC & Chem 7: 05/21/24 04:23 05/21/24 04:23 Labs: Abnormal Lab Results - Last 24 Hours (Table) 05/20/24 05/20/24 05/20/24 Range/Units 14:02 17:56 17:56 WBC (3.8-10.6) k/uL Plt Count (150-450) k/uL Sodium 120 L 120 L 122 L (137-145) mmol/L Chloride 84 L (98-107) mmol/L Carbon Dioxide 32 H (22-30) mmol/L BUN 19 H (7-17) mg/dL Calcium (8.4-10.2) mg/dL 05/21/24 05/21/24 05/21/24 Range/Units 04:23 04:23 04:23 WBC 10.8 H (3.8-10.6) k/uL Plt Count 474 H (150-450) k/uL Sodium 122 L 122 L (137-145) mmol/L Chloride 89 L (98-107) mmol/L Carbon Dioxide (22-30) mmol/L BUN 18 H (7-17) mg/dL Calcium 8.1 L (8.4-10.2) mg/dL Assessment and Plan Assessment: 1. Hypovolemic hyponatremia improved with normal saline. But sodium has not improved much more with normal saline administration. Therefore it was discontinued this morning patient received sodium chloride tabs and we will recheck sodium this afternoon. Given the low urine osmolality she will benefit from sodium load. Urine osmolality 198 and random urine sodium 58. Continue to hold off on thiazide diuretics. 2. Hypercalcemia associated with calcium supplementation. Calcium has improved to 9.2. Thiazide diuretics can be associated with hypercalcemia as well due to decrease calcium excretion in the urine. Patient was taking calcium supplements. 3. Hyperkalemia associated with MELISSA inhibitors and potassium sparing diuretics, improved. 4. Volume depletion Plan: Continue off of saline for now. If patient is not able to tolerate oral intake and sodium chloride tabs we will resume IV saline. Repeat sodium at noon. Follow-up on CT of the abdomen.
--- NOTE | 2024-05-21 12:41 | P.PN ---
Subjective Progress Note Date: 05/21/24 73-year-old female with PMH of asthma, GERD, hyperlipidemia, hypertension presents to the emergency department after feeling nauseous, weak, headaches and having a lack of appetite for the past 68 weeks. Additionally, she endorses having intermittent chest pain for the same period of time. She states the pain is centrally located, does not radiate, is not alleviated by any factors, and rates it at a 9/10. During these episodes of centrally located chest pain she does have some associated shortness of breath. She also notes having abdominal pain and nausea persistently from her stomach, which limits her ability to eat. The nausea is present with or without food and does not subside. As a result of this, she is unable to to have much oral intake. She states she really only has Vernor's after it is warmed up in the microwave. She denies vomiting, diarrhea, diaphoretic episodes, fever or chills. She notes having had episodes of lightheadedness when shifting from a seated position to standing too quickly, however this predates this time period and she has noticed this occurring for a while. She denies any history of smoking cigarettes, and states she drinks alcohol rarely. When seen at bedside this afternoon, she endorses having a headache however notes no chest pain or shortness of breath, however she does note some mild abdominal pain with associated nausea. 05/20/24 - Patient seen and examined at bedside this morning, remaining in the ED. No acute events overnight. She states that she remains nauseous, however was able to eat some food. Requested something for the nausea, in the hopes will alleviate and allow her some appetite. Following 1 L bolus of normal saline given in the emergency department patient sodium increased from 115-122. At that time fluids were discontinued. She states that on top of her nausea, she has occasional chest pain however similar to what she had been experiencing prior to arriving in the hospital. 05/21/24 - Patient seen and examined at bedside this morning, now on the 3rd floor, in room 352. Overnight he rested for the pain patient had significant abdominal pain which is continued to this morning. She notes the pain being w orse on her right side, however is notable on both sides of the abdomen. At that time an acute abdominal x-ray series was ordered which showed no evidence of free air, no evidence of bowel obstruction, no evidence of cardiopulmonary abnormality. Additionally, at that time she received 50 mg tramadol and 2 mg morphine yesterday Zofran was added, which was noted to have improved the patient's nausea and according to the patient she was able to tolerate eating more. Per nephrology's recommendation she had continued receiving normal saline 75 cc/h, which was discontinued last night. BMP this morning showed sodium has remained constant 122. REVIEW OF SYSTEMS: Pertinent positives and negatives noted in HPI. Physical Exam: General: In some distress associated with her abdominal pain Derm: warm, dry, intact Head: atraumatic, normocephalic, symmetric Eyes: EOMI, anicteric sclera Mouth: no lip lesion, mucus membranes moist Cardiovascular: S1 S2 reg, no murmur, rubs, or gallops Lungs: CTA bilateral, no rales, no accessory muscle use Abdominal: Worsening tenderness to palpation of the abdomen, R>L Extremities: no gross muscle atrophy, no edema, no contractures Neuro: Alert, Oriented, CNII-XII grossly intact, gait normal Psych: well appearing, appropriate affect Data Received Today: Labs: WBCs 10.8, hemoglobin 13.8, hematocrit 41.5, platelet 474; sodium 122, potassium 4.7, chloride 89, bicarb 26, BUN 18, creatinine 0.82, calcium 8.1 Imagining: EKG independently assessed showed rate of 84, sinus rhythm Assessment and plan 73-year-old female with PMH of asthma, GERD, hyperlipidemia, hypertension presents emergency department after 6-8 weeks of feeling nauseous, weak and having a lack of appetite. Coming in with severe hyponatremia. #Asymptomatic severe hypovolemic, likely chronic, hyponatremia #Hypercalcemia, likely associated calcium supplementation #SIRS criteria met #Leukocytosis, likely reactive #Thrombocytosis -Sodium this morning 122 -Continues to receive sodium chloride tabs per nephrology's recommendation; if patient is unable to tolerate oral intake, will resume normal saline -Continue monitor BMP -TSH 0.675 -Urine random sodium 58, urine osmolality 198 -Hold triamterene/hydrochlorothiazide -Nephrology consulted #Worsening right-sided abdominal pain -Acute abdomen x-ray series showed no evidence of free air, no evidence of bowel obstruction, no acute cardiopulmonary abnormality -CT abdomen/pelvis with contrast ordered, currently pending -Further recommendations pending results of CT #Worsening debility -PT/OT consulted #Hyperkalemia, of unknown etiology, likely medication induced - resolved -Hold triamterene/hydrochlorothiazide -Monitor BMP #Hypoglycemia secondary to treatment for above -Monitor blood glucose every hour #Atypical chest pain, ruled out ACS -Troponin <0.012 x 3 -Continue with aspirin 81 mg daily and Lipitor 40 mg nightly -EKG done in the ED independently reviewed and assessed -Echocardiogram (05/20/2024) showed EF 55 to 60%, normal biventricular systolic function, without any significant valvular abnormalities -Cardiology note reviewed -Cardiac monitoring #SIRS criteria met on admission #Leukocytosis, likely reactive #Thrombocytosis -Continue to monitor CBC #Hypertension -Resume 5 mg Zestril daily DVT ppx: Lovenox 40 mg subcu daily Code status: Full code F: None E: Replete as needed N: Regular diet A: Ambulatory Anticipated discharge place: Home Anticipated discharge time: Pending clinical course Dictation was produced using [employer] dictation software. please excuse any grammatical, word or spelling errors. I have seen and evaluated the patient today. Discussed with the resident and agree with the residents finding and plan as documented in the resident's note. Changes highlighted in blue font. Concerns for SIADH from Citalopram use. Will discus with Nephrology. Objective - Vital Signs Vital signs: Vital Signs Temp 98 F 05/21/24 03:30 Pulse 85 05/21/24 03:30 Resp 16 05/21/24 03:30 BP 113/68 05/21/24 03:30 Pulse Ox 98 05/21/24 03:30 FiO2 Intake & Output 05/20/24 05/21/24 05/21/24 18:59 06:59 18:59 Intake Total 1200 Balance 1200 Weight 46.72 kg 54 kg Intake: IV 1200 Sodium Chloride 0.9% 1, 1200 000 ml @ 75 mls/hr IV . [id number] [facility] Rx#:[id number] Other: Voiding Method Toilet Toilet - Labs CBC & Chem 7: 05/21/24 04:23 05/21/24 12:53 Labs: Abnormal Lab Results - Last 24 Hours (Table) 05/19/24 05/20/24 05/20/24 Range/Units 13:31 08:27 08:27 WBC 11.9 H (3.8-10.6) k/uL Plt Count 474 H (150-450) k/uL Monocytes # 1.1 H (0-1.0) k/uL Sodium 119 L* (137-145) mmol/L Chloride 82 L (98-107) mmol/L Carbon Dioxide 33 H (22-30) mmol/L BUN (7-17) mg/dL Calcium (8.4-10.2) mg/dL HDL Cholesterol 93.00 H (40.00-60.00) mg/dL 05/20/24 05/20/24 05/20/24 Range/Units 14:02 17:56 17:56 WBC (3.8-10.6) k/uL Plt Count (150-450) k/uL Monocytes # (0-1.0) k/uL Sodium 120 L 120 L 122 L (137-145) mmol/L Chloride 84 L (98-107) mmol/L Carbon Dioxide 32 H (22-30) mmol/L BUN 19 H (7-17) mg/dL Calcium (8.4-10.2) mg/dL HDL Cholesterol (40.00-60.00) mg/dL 05/21/24 05/21/24 05/21/24 Range/Units 04:23 04:23 04:23 WBC 10.8 H (3.8-10.6) k/uL Plt Count 474 H (150-450) k/uL Monocytes # (0-1.0) k/uL Sodium 122 L 122 L (137-145) mmol/L Chloride 89 L (98-107) mmol/L Carbon Dioxide (22-30) mmol/L BUN 18 H (7-17) mg/dL Calcium 8.1 L (8.4-10.2) mg/dL HDL Cholesterol (40.00-60.00) mg/dL
[2024-05-21] MEDS: SODIUM CHLORIDE 0.9% 1,000 ML IV SCH (14:35)
--- NOTE | 2024-05-21 15:13 | CT ---
EXAMINATION TYPE: CT abdomen pelvis w con DATE OF EXAM: 05/21/2024 COMPARISON: None CLINICAL INDICATION: Female, 73 years old with history of right sided abdominal pain; PHH, right side d abdominal pain TECHNIQUE: Performed without Oral Contrast and with IV Contrast, patient injected with 100 ml mL of Isovue 300. CT DLP: 351.[address] CTDI: mGy Automated exposure control for dose reduction was used. FINDINGS: The lung bases are clear. There is a large hiatal hernia. There is a single large gallstone but no gallbladder wall thickening, distention or pericholecystic f luid.. There is no biliary ductal dilatation. There is no focal mass or organomegaly involving the liver, pancreas, spleen or adrenal glands. There is no solid renal mass or hydronephrosis and there is homogeneous contrast enhancement of the r enal parenchyma. The caliber the abdominal aorta is normal is no retroperitoneal adenopathy or hemorr ralph. The bowel loops are normal in caliber and there is no evidence of dilatation or obstruction. No infla mmatory changes are identified in the bowel wall or mesentery. There is a moderate amount of stool th roughout the colon and rectum. There is no free intraperitoneal air or fluid. No pelvic mass, free fluid, abscess or adenopathy. The osseous structures and soft tissues are intact. IMPRESSION: 1. Large hiatal hernia. 2. Cholelithiasis. 3. No bowel obstruction but moderate amount stool throughout the colon and rectum. [facility], , 05/21/2024 3:11 PM
[2024-05-21] MEDS: SODIUM CHLORIDE TAB 1 GM TAB PO SCH (16:06)
[2024-05-21] MEDS: MORPHINE SULFATE 2 MG/ML SYRINGE IVP PRN (18:54)
[2024-05-21] MEDS: MELATONIN 5 MG TABLET PO PRN (20:53)
[2024-05-22 07:47] LABS: African American GFR (CKD) >90 (>60 ml/min/1.73 sqM); Anion Gap 3 mmol/L; Blood Urea Nitrogen 8 mg/dL (7-17); Calcium 7.6 mg/dL (8.4-10.2); Carbon Dioxide 26 mmol/L (22-30); Chloride 100 mmol/L (98-107); Glucose 80 mg/dL (74-99); Non-African American GFR(CKD) 89 (>60 ml/min/1.73 sqM); Potassium 4.6 mmol/L (3.5-5.1); Sodium 129 mmol/L (137-145)
[2024-05-22 07:58] LABS: Basophils % (A) 0 %; Eosinophils # (A) 0.2 k/uL (0-0.7); Eosinophils % (A) 3 %; HCT 35.1 % (34.0-46.0); HGB 11.3 gm/dL (11.4-16.0); Lymphocytes # (A) 1.3 k/uL (1.0-4.8); Lymphocytes % (A) 19 %; MCH 31.2 pg (25.0-35.0); MCHC 32.2 g/dL (31.0-37.0); Mean Platelet Volume 7.5; Monocytes # (A) 0.5 k/uL (0-1.0); Monocytes % (A) 8 %; Neutrophils # (A) 4.8 k/uL (1.3-7.7); Neutrophils % (A) 70 %; Platelet Count 402 k/uL (150-450); RBC 3.62 m/uL (3.80-5.40); RDW 12.4 % (11.5-15.5); WBC 6.9 k/uL (3.8-10.6)
--- NOTE | 2024-05-22 11:07 | P.PN ---
Subjective Patient is seen for follow-up for hyponatremia. Maintained on normal saline. Sodium has improved to 129. Still complains of abdominal pain. No complaints of shortness of breath CT abdomen showed large hiatal hernia and cholelithiasis. Objective - Vital Signs Vital signs: Vital Signs Temp 97.3 F L 05/22/24 10:45 Pulse 83 05/22/24 10:45 Resp 16 05/22/24 10:45 BP 125/77 05/22/24 10:45 Pulse Ox 99 05/22/24 10:45 FiO2 21 05/22/24 08:53 Intake & Output 05/21/24 05/22/24 05/22/24 18:59 06:59 18:59 Intake Total 1055 Balance 1055 Weight 43.5 kg Intake: IV 450 Sodium Chloride 0.9% 1, 450 000 ml @ 75 mls/hr IV . [id number] [facility] Rx#:[id number] Intake, IV Titration 125 Amount Sodium Chloride 0.9% 1, 125 000 ml @ 125 mls/hr IV . Q8H [facility] Rx#:[id number] Oral 480 Other: Voiding Method Toilet Toilet Toilet # Voids 3 1 - Exam Patient is awake, comfortable, no acute distress. Examination of the heart S1 and S2 Examination of the lungs bilateral breath sounds are heard Abdomen is soft nontender Examination lower extremities shows no significant edema LABORER SHELLFISH PROCESSING exam grossly intact - Labs CBC & Chem 7: 05/22/24 05:23 05/22/24 05:23 Labs: Abnormal Lab Results - Last 24 Hours (Table) 05/21/24 05/21/24 05/22/24 Range/Units 12:53 18:13 05:23 RBC 3.62 L (3.80-5.40) m/uL Hgb 11.3 L (11.4-16.0) gm/dL Sodium 118 L* 124 L (137-145) mmol/L Calcium (8.4-10.2) mg/dL 05/22/24 Range/Units 05:23 RBC (3.80-5.40) m/uL Hgb (11.4-16.0) gm/dL Sodium 129 L (137-145) mmol/L Calcium 7.6 L (8.4-10.2) mg/dL Assessment and Plan Assessment: 1. Hypovolemic hyponatremia improved with normal saline. Urine osmolality 198 and random urine sodium 58. Continue to hold off on thiazide diuretics. 2. Hypercalcemia associated with calcium supplementation. Calcium has improved to 9.2. Thiazide diuretics can be associated with hypercalcemia as well due to decrease calcium excretion in the urine. Patient was taking calcium supplements. 3. Hyperkalemia associated with MELISSA inhibitors and potassium sparing diuretics, improved. 4. Volume depletion Plan: Continue normal saline infusion. Repeat sodium later this afternoon
--- NOTE | 2024-05-22 11:19 | P.PN ---
Subjective Progress Note Date: 05/22/24 73-year-old female with PMH of asthma, GERD, hyperlipidemia, hypertension presents to the emergency department after feeling nauseous, weak, headaches and having a lack of appetite for the past 68 weeks. Additionally, she endorses having intermittent chest pain for the same period of time. She states the pain is centrally located, does not radiate, is not alleviated by any factors, and rates it at a 9/10. During these episodes of centrally located chest pain she does have some associated shortness of breath. She also notes having abdominal pain and nausea persistently from her stomach, which limits her ability to eat. The nausea is present with or without food and does not subside. As a result of this, she is unable to to have much oral intake. She states she really only has Vernor's after it is warmed up in the microwave. She denies vomiting, diarrhea, diaphoretic episodes, fever or chills. She notes having had episodes of lightheadedness when shifting from a seated position to standing too quickly, however this predates this time period and she has noticed this occurring for a while. She denies any history of smoking cigarettes, and states she drinks alcohol rarely. When seen at bedside this afternoon, she endorses having a headache however notes no chest pain or shortness of breath, however she does note some mild abdominal pain with associated nausea. 05/20/24 - Patient seen and examined at bedside this morning, remaining in the ED. No acute events overnight. She states that she remains nauseous, however was able to eat some food. Requested something for the nausea, in the hopes will alleviate and allow her some appetite. Following 1 L bolus of normal saline given in the emergency department patient sodium increased from 115-122. At that time fluids were discontinued. She states that on top of her nausea, she has occasional chest pain however similar to what she had been experiencing prior to arriving in the hospital. 05/21/24 - Patient seen and examined at bedside this morning, now on the 3rd floor, in room 352. Overnight he rested for the pain patient had significant abdominal pain which is continued to this morning. She notes the pain being w orse on her right side, however is notable on both sides of the abdomen. At that time an acute abdominal x-ray series was ordered which showed no evidence of free air, no evidence of bowel obstruction, no evidence of cardiopulmonary abnormality. Additionally, at that time she received 50 mg tramadol and 2 mg morphine yesterday Zofran was added, which was noted to have improved the patient's nausea and according to the patient she was able to tolerate eating more. Per nephrology's recommendation she had continued receiving normal saline 75 cc/h, which was discontinued last night. BMP this morning showed sodium has remained constant 122. 2/ - Patient seen and examined at bedside this morning. Overnight 2 mg morphine IVP every 8 hours as needed was added for her worsening abdominal pain, which remained well-controlled throughout the night. On recheck of the patient's sodium yesterday at ~12:00, sodium shown to be 118. Per nephrology's recommendation she was restarted on normal saline at 125 cc/h. Serum sodium was rechecked at 18:00 however was shown to be 124. At that time fluids were discontinued. Labs from this morning show REVIEW OF SYSTEMS: Pertinent positives and negatives noted in HPI. Physical Exam: General: In some distress associated with her abdominal pain Derm: warm, dry, intact Head: atraumatic, normocephalic, symmetric Eyes: EOMI, anicteric sclera Mouth: no lip lesion, mucus membranes moist Cardiovascular: S1 S2 reg, no murmur, rubs, or gallops Lungs: CTA bilateral, no rales, no accessory muscle use Abdominal: Worsening tenderness to palpation of the abdomen, R>L Extremities: no gross muscle atrophy, no edema, no contractures Neuro: Alert, Oriented, CNII-XII grossly intact, gait normal Psych: well appearing, appropriate affect Data Received Today: Labs: CBC and BMP significant for RBC 3.62, Hg 11.3, Na 129, Ca 7.6. Imagining: CT abdomen/pelvis showed large hiatal hernia, cholelithiasis, no bowel obstruction Assessment and plan 73-year-old female with PMH of asthma, GERD, hyperlipidemia, hypertension presents emergency department after 6-8 weeks of feeling nauseous, weak and having a lack of appetite. Coming in with severe hyponatremia. #Asymptomatic severe hypovolemic, likely chronic, hyponatremia #Hypercalcemia, likely associated calcium supplementation #SIRS criteria met #Leukocytosis, likely reactive #Thrombocytosis -Sodium this morning 129 -Continue on normal saline infusion, recheck sodium this afternoon -Continue monitor BMP -Urine random sodium 58, urine osmolality 198 -Vitamin D 25-hydroxy 31.6 -Continue to hold triamterene/hydrochlorothiazide -Nephrology consulted #Symptomatic cholelithiasis -Acute abdomen x-ray series showed no evidence of free air, no evidence of bowel obstruction, no acute cardiopulmonary abnormality -CT abdomen/pelvis with contrast ordered read and reviewed -Further recommendations pending results of CT #Worsening debility, improved -PT/OT notes read and reviewed #Hyperkalemia, of unknown etiology, likely medication induced - resolved -Hold triamterene/hydrochlorothiazide -Monitor BMP #Hypoglycemia secondary to treatment for above -Monitor blood glucose every hour #Atypical chest pain, ruled out ACS -Troponin <0.012 x 3 -Continue with aspirin 81 mg daily and Lipitor 40 mg nightly -EKG done in the ED independently reviewed and assessed -Echocardiogram (05/20/2024) showed EF 55 to 60%, normal biventricular systolic function, without any significant valvular abnormalities -Cardiology note reviewed -Cardiac monitoring #SIRS criteria met on admission #Leukocytosis, likely reactive #Thrombocytosis -Continue to monitor CBC #Hypertension -Resume 5 mg Zestril daily DVT ppx: Lovenox 40 mg subcu daily Code status: Full code F: NS 125 cc/h E: Replete as needed N: Regular diet A: Ambulatory Anticipated discharge place: Home Anticipated discharge time: Pending clinical course Dictation was produced using [employer] dictation software. please excuse any grammatical, word or spelling errors. I have seen and evaluated the patient today. Discussed with the resident and agree with the residents finding and plan as documented in the resident's note. Changes highlighted in blue font. Patient with worsening RUQ pain. Likely cholelithiasis. Likely contributing to poor appetite and hyponatremia. Consult surgery. Objective - Vital Signs Vital signs: Vital Signs Temp 97.7 F 05/22/24 06:52 Pulse 84 05/22/24 06:52 Resp 18 05/22/24 06:52 BP 135/83 05/22/24 06:52 Pulse Ox 100 05/22/24 06:52 FiO2 Intake & Output 05/21/24 05/22/24 05/22/24 18:59 06:59 18:59 Intake Total 1055 Balance 1055 Weight 43.5 kg Intake: IV 450 Sodium Chloride 0.9% 1, 450 000 ml @ 75 mls/hr IV . [id number] DEVANG Rx#:[id number] Intake, IV Titration 125 Amount Sodium Chloride 0.9% 1, 125 000 ml @ 125 mls/hr IV . Q8H DEVANG Rx#:[id number] Oral 480 Other: Voiding Method Toilet Toilet # Voids 3 1 - Labs CBC & Chem 7: 05/22/24 05:23 05/22/24 15:51 Labs: Abnormal Lab Results - Last 24 Hours (Table) 05/21/24 05/21/24 Range/Units 12:53 18:13 Sodium 118 L* 124 L (137-145) mmol/L
[2024-05-22] MEDS: polyethylene glycoL 3350 17 GM POWD.PACK PO SCH (11:47)
[2024-05-22] MEDS: SODIUM CHLORIDE 0.9% 1,000 ML IV SCH (12:24)
[2024-05-22] MEDS: bisacodyL 10 MG SUPP RECTAL SCH (21:08)
[2024-05-23 07:26] LABS: Basophils % (A) 0 %; Eosinophils # (A) 0.3 k/uL (0-0.7); Eosinophils % (A) 4 %; HCT 37.2 % (34.0-46.0); HGB 11.9 gm/dL (11.4-16.0); Hypochromasia Slight; Lymphocytes # (A) 1.5 k/uL (1.0-4.8); Lymphocytes % (A) 20 %; MCH 31.6 pg (25.0-35.0); MCV 98.9 fL (80.0-100.0); Mean Platelet Volume 6.6; Monocytes # (A) 0.5 k/uL (0-1.0); Monocytes % (A) 7 %; Neutrophils % (A) 67 %; Platelet Count 401 k/uL (150-450); RBC 3.76 m/uL (3.80-5.40); RDW 12.2 % (11.5-15.5); WBC 7.4 k/uL (3.8-10.6)
[2024-05-23 07:47] LABS: ALT 12 U/L (4-34); AST 22 U/L (14-36); African American GFR (CKD) >90 (>60 ml/min/1.73 sqM); Albumin 2.9 g/dL (3.5-5.0); Alkaline Phosphatase 47 U/L (38-126); Anion Gap 4 mmol/L; Blood Urea Nitrogen 4 mg/dL (7-17); Calcium 8.3 mg/dL (8.4-10.2); Carbon Dioxide 26 mmol/L (22-30); Chloride 100 mmol/L (98-107); Glucose 91 mg/dL (74-99); Non-African American GFR(CKD) >90 (>60 ml/min/1.73 sqM); Potassium 4.4 mmol/L (3.5-5.1); Sodium 130 mmol/L (137-145); Total Bilirubin 0.6 mg/dL (0.2-1.3); Total Protein 5.3 g/dL (6.3-8.2)
[2024-05-23 07:48] LABS: Albumin 3.1 g/dL (3.5-5.0); Bilirubin, Delta 0.1 mg/dL (0.0-0.2); Bilirubin,Unconjugated 0.5 mg/dL (0.0-1.1); Total Bilirubin 0.6 mg/dL (0.2-1.3); Total Protein 5.3 g/dL (6.3-8.2)
--- NOTE | 2024-05-23 11:13 | P.PN ---
Subjective Progress Note Date: 05/23/24 73-year-old female with PMH of asthma, GERD, hyperlipidemia, hypertension presents to the emergency department after feeling nauseous, weak, headaches and having a lack of appetite for the past 68 weeks. Additionally, she endorses having intermittent chest pain for the same period of time. She states the pain is centrally located, does not radiate, is not alleviated by any factors, and rates it at a 9/10. During these episodes of centrally located chest pain she does have some associated shortness of breath. She also notes having abdominal pain and nausea persistently from her stomach, which limits her ability to eat. The nausea is present with or without food and does not subside. As a result of this, she is unable to to have much oral intake. She states she really only has Vernor's after it is warmed up in the microwave. She denies vomiting, diarrhea, diaphoretic episodes, fever or chills. She notes having had episodes of lightheadedness when shifting from a seated position to standing too quickly, however this predates this time period and she has noticed this occurring for a while. She denies any history of smoking cigarettes, and states she drinks alcohol rarely. When seen at bedside this afternoon, she endorses having a headache however notes no chest pain or shortness of breath, however she does note some mild abdominal pain with associated nausea. 05/20/24 - Patient seen and examined at bedside this morning, remaining in the ED. No acute events overnight. She states that she remains nauseous, however was able to eat some food. Requested something for the nausea, in the hopes will alleviate and allow her some appetite. Following 1 L bolus of normal saline given in the emergency department patient sodium increased from 115-122. At that time fluids were discontinued. She states that on top of her nausea, she has occasional chest pain however similar to what she had been experiencing prior to arriving in the hospital. 05/21/24 - Patient seen and examined at bedside this morning, now on the 3rd floor, in room 352. Overnight he rested for the pain patient had significant abdominal pain which is continued to this morning. She notes the pain being w orse on her right side, however is notable on both sides of the abdomen. At that time an acute abdominal x-ray series was ordered which showed no evidence of free air, no evidence of bowel obstruction, no evidence of cardiopulmonary abnormality. Additionally, at that time she received 50 mg tramadol and 2 mg morphine yesterday Zofran was added, which was noted to have improved the patient's nausea and according to the patient she was able to tolerate eating more. Per nephrology's recommendation she had continued receiving normal saline 75 cc/h, which was discontinued last night. BMP this morning showed sodium has remained constant 122. 2 - Patient seen and examined at bedside this morning. Overnight 2 mg morphine IVP every 8 hours as needed was added for her worsening abdominal pain, which remained well-controlled throughout the night. On recheck of the patient's sodium yesterday at ~12:00, sodium shown to be 118. Per nephrology's recommendation she was restarted on normal saline at 125 cc/h. Serum sodium was rechecked at 18:00 however was shown to be 124. At that time fluids were discontinued. Labs from this morning show WBC 6.9, hemoglobin 11.3, sodium 129, calcium 7.6. 05/23/24 - Patient seen and examined at bedside this morning. No acute events overnight. Yesterday consult made to general surgery for further evaluation of the patient's worsening abdominal pain. Per nephrology's recommendation she was continued on normal saline infusion at 75 cc/h. This morning BMP showed sodium 130. REVIEW OF SYSTEMS: Pertinent positives and negatives noted in HPI. Physical Exam: General: In some distress associated with her abdominal pain Derm: warm, dry, intact Head: atraumatic, normocephalic, symmetric Eyes: EOMI, anicteric sclera Mouth: no lip lesion, mucus membranes moist Cardiovascular: S1 S2 reg, no murmur, rubs, or gallops Lungs: CTA bilateral, no rales, no accessory muscle use Abdominal: Worsening tenderness to palpation of the abdomen, R>L Extremities: no gross muscle atrophy, no edema, no contractures Neuro: Alert, Oriented, CNII-XII grossly intact, gait normal Psych: well appearing, appropriate affect Data Received Today: Labs: WBC 7.4, hemoglobin 9.9, hematocrit 37.2, platelet 401; sodium 130, potassium 4.4, BUN 4, creatinine 0.62, calcium 8.3 Imagining: No new imaging Assessment and plan 73-year-old female with PMH of asthma, GERD, hyperlipidemia, hypertension presents emergency department after 6-8 weeks of feeling nauseous, weak and having a lack of appetite. Coming in with severe hyponatremia. #Asymptomatic severe hypovolemic, likely chronic, hyponatremia #Hypercalcemia, likely associated calcium supplementation, resolved #SIRS criteria met #Leukocytosis, likely reactive #Thrombocytosis, resolved -Sodium this morning 129 -Continue on normal saline infusion, recheck sodium this afternoon -Continue monitor BMP -Urine random sodium 58, urine osmolality 198 -Vitamin D 25-hydroxy 31.6 -Continue to hold triamterene/hydrochlorothiazide -Nephrology consulted #Symptomatic cholelithiasis -Acute abdomen x-ray series showed no evidence of free air, no evidence of bowel obstruction, no acute cardiopulmonary abnormality -CT abdomen/pelvis with contrast ordered read and reviewed -Started on Dulcolax and MiraLAX -General Surgery consult #Worsening debility, improved -PT/OT notes read and reviewed #Hyperkalemia, of unknown etiology, likely medication induced - resolved -Hold triamterene/hydrochlorothiazide -Monitor BMP #Hypocalcemia -Continue to monitor BMP #Hypoglycemia secondary to treatment for above -Monitor blood glucose every hour #Atypical chest pain, ruled out ACS -Troponin <0.012 x 3 -Continue with aspirin 81 mg daily and Lipitor 40 mg nightly -EKG done in the ED independently reviewed and assessed -Echocardiogram (05/20/2024) showed EF 55 to 60%, normal biventricular systolic function, without any significant valvular abnormalities -Cardiology note reviewed -Cardiac monitoring #SIRS criteria met on admission #Leukocytosis, likely reactive #Thrombocytosis -Continue to monitor CBC #Hypertension -Resume 5 mg Zestril daily DVT ppx: Lovenox 40 mg subcu daily Code status: Full code F: NS 75 cc/h E: Replete as needed N: Regular diet A: Ambulatory Anticipated discharge place: Home Anticipated discharge time: Pending clinical course Dictation was produced using [employer] dictation software. please excuse any grammatical, word or spelling errors. I have seen and evaluated the patient today. Discussed with the resident and agree with the residents finding and plan as documented in the resident's note. Changes highlighted in blue font. Objective - Vital Signs Vital signs: Vital Signs Temp 97.9 F 05/23/24 03:13 Pulse 79 05/23/24 03:13 Resp 16 05/23/24 03:13 BP 129/80 02/22/25 03:13 Pulse Ox 100 05/23/24 03:13 FiO2 21 05/22/24 08:53 Intake & Output 05/22/24 05/23/24 05/23/24 18:59 06:59 18:59 Weight 46.4 kg Other: Voiding Method Toilet Toilet # Voids 2 1 # Bowel Movements 1 - Labs CBC & Chem 7: 05/23/24 06:40 05/23/24 06:40 Labs: Abnormal Lab Results - Last 24 Hours (Table) 05/22/24 05/22/24 05/22/24 Range/Units 05:23 05:23 15:51 RBC 3.62 L (3.80-5.40) m/uL Hgb 11.3 L (11.4-16.0) gm/dL Sodium 129 L 128 L (137-145) mmol/L Calcium 7.6 L (8.4-10.2) mg/dL
[2024-05-23] MEDS: CITALOPRAM HYDROBROMIDE 20 MG TAB PO SCH (11:23)
[2024-05-23 12:52] VITALS: BMI 18.7
--- NOTE | 2024-05-23 15:42 | P.PN ---
Subjective Patient is seen for follow-up for hyponatremia. Maintained on normal saline. Sodium has improved to 130 Abdominal pain has improved. Tolerating oral intake. No complaints of shortness of breath Objective - Vital Signs Vital signs: Vital Signs Temp 97.5 F L 05/23/24 08:00 Pulse 81 05/23/24 12:00 Resp 16 05/23/24 12:00 BP 144/78 05/23/24 12:00 Pulse Ox 98 05/23/24 12:00 FiO2 21 05/23/24 09:30 Intake & Output 05/22/24 05/23/24 05/23/24 18:59 06:59 18:59 Intake Total 598 Balance 598 Weight 46.4 kg 46.4 kg Intake: Oral 598 Other: Voiding Method Toilet Toilet Toilet # Voids 2 1 1 # Bowel Movements 1 1 - Exam Patient is awake, comfortable, no acute distress. Examination of the heart S1 and S2 Examination of the lungs bilateral breath sounds are heard Abdomen is soft nontender Examination lower extremities shows 1+ edema [employer] exam grossly intact - Labs CBC & Chem 7: 05/23/24 06:40 05/23/24 06:40 Labs: Abnormal Lab Results - Last 24 Hours (Table) 05/22/24 05/23/24 05/23/24 Range/Units 15:51 06:40 06:40 RBC 3.76 L (3.80-5.40) m/uL Sodium 128 L (137-145) mmol/L BUN (7-17) mg/dL Calcium (8.4-10.2) mg/dL Total Protein 5.3 L (6.3-8.2) g/dL Albumin 3.1 L (3.5-5.0) g/dL 05/23/24 Range/Units 06:40 RBC (3.80-5.40) m/uL Sodium 130 L (137-145) mmol/L BUN 4 L (7-17) mg/dL Calcium 8.3 L (8.4-10.2) mg/dL Total Protein 5.3 L (6.3-8.2) g/dL Albumin 2.9 L (3.5-5.0) g/dL Assessment and Plan Assessment: 1. Hypovolemic hyponatremia improved with normal saline. Urine osmolality 198 and random urine sodium 58. Continue to hold off on thiazide diuretics. 2. Hypercalcemia associated with calcium supplementation. Calcium has improved to 9.2. Thiazide diuretics can be associated with hypercalcemia as well due to decrease calcium excretion in the urine. Patient was taking calcium supplements. 3. Hyperkalemia associated with MELISSA inhibitors and potassium sparing diuretics, improved. 4. Volume depletion Plan: Continue normal saline infusion. Repeat sodium later this afternoon Encouraged increased oral intake
--- NOTE | 2024-05-23 21:25 | P.GSCN ---
History of Present Illness History of present illness: Patient is a 73 yo female c/o abdominal pain/discomfort and states she suffers from constipation. Prior to arrival she has not been able to defecate. She received a bowel regimen and had a large bowel movement last night/this am. She currently admits to mild abdominal pain, denies nausea, vomiting, fevers, chills, shortness of breath or chest pain. Past Medical History Past Medical History: Asthma, GERD/Reflux, Hyperlipidemia, Hypertension, Pn eumonia Additional Past Medical History / Comment(s): Bronchitis, small hiatal hernia, constipation, IBS, occasional UTIs, chronic back pain. History of Any Multi-Drug Resistant Organisms: None Reported Past Surgical History: Tonsillectomy, Tubal Ligation Additional Past Surgical History / Comment(s): EGD, colonoscopies Past Anesthesia/Blood Transfusion Reactions: No Reported Reaction Past Psychological History: Anxiety, Depression Additional Psychological History / Comment(s): Pt resides alone. She uses no assistive device. She attended special education. She does not drive, she uses the bus system. She sees a psych therapist, Mary Mejias. Smoking Status: Never smoker Past Alcohol Use History: Rare Past Drug Use History: None Reported - Past Family History Mother History Unknown: Yes Additional Family Medical History / Comment(s): Mother is Father History Unknown: Yes Additional Family Medical History / Comment(s): Father is . Medications and Allergies Home Medications Medication Instructions Recorded Confirmed Type Citalopram Hydrobromide [CeleXA] 40 mg PO DAILY 10/13/15 05/19/24 History Atorvastatin [Lipitor] 10 mg PO HS 09/11/23 05/19/24 History lisinopriL [Zestril] 5 mg PO DAILY 09/11/23 05/19/24 History Baclofen [Lioresal] 20 mg PO HS 05/19/24 05/19/24 History Calcium Carbonate [Calcium] 600 mg PO DAILY 05/19/24 05/19/24 History Triamterene/Hydrochlorothiazid 1 tab PO DAILY 05/19/24 05/19/24 History [Triamterene-Hctz 37.5-25 mg Tb] prednisoLONE ACETATE 1% OPHTH 1 drops BOTH EYES BID 05/19/24 05/19/24 History [Pred Forte 1%] traMADol HCL 50 mg PO BID PRN 05/19/24 05/19/24 History Allergies Allergy/AdvReac Type Severity Reaction Status Date / Time clarithromycin [From Biaxin] Allergy Unknown Verified 05/19/24 16:15 metronidazole [From Flagyl] Allergy Unknown Verified 05/19/24 16:15 Surgical - Exam Osteopathic Statement: *. No significant issues noted on an osteopathic structural exam other than those noted in the History and Physical/Consult. Vital Signs Temp Pulse Resp BP Pulse Ox 98.3 F 105 H 17 149/80 98 05/19/24 12:02 05/19/24 12:02 05/19/24 12:02 05/19/24 12:02 05/19/24 12:02 gen: nad cv: rrr pul: non labored breathing abd: soft, distended, mild tenderness to palpation, no guarding or rebound tenderness Results - Labs 05/23/24 06:40 05/23/24 06:40 Abnormal Lab Results - Last 24 Hours (Table) 05/23/24 05/23/24 05/23/24 Range/Units 06:40 06:40 06:40 RBC 3.76 L (3.80-5.40) m/uL Sodium 130 L (137-145) mmol/L BUN 4 L (7-17) mg/dL Calcium 8.3 L (8.4-10.2) mg/dL Total Protein 5.3 L 5.3 L (6.3-8.2) g/dL Albumin 3.1 L 2.9 L (3.5-5.0) g/dL Diabetes panel 05/23/24 05/23/24 Range/Units 06:40 06:40 Sodium 130 L (137-145) mmol/L Potassium 4.4 (3.5-5.1) mmol/L Chloride 100 (98-107) mmol/L Carbon Dioxide 26 (22-30) mmol/L BUN 4 L (7-17) mg/dL Creatinine 0.62 (0.52-1.04) mg/dL Glucose 91 (74-99) mg/dL Calcium 8.3 L (8.4-10.2) mg/dL AST 19 22 (14-36) U/L ALT 12 12 (4-34) U/L Alkaline Phosphatase 47 47 (38-126) U/L Total Protein 5.3 L 5.3 L (6.3-8.2) g/dL Albumin 3.1 L 2.9 L (3.5-5.0) g/dL Calcium panel 05/23/24 05/23/24 Range/Units 06:40 06:40 Calcium 8.3 L (8.4-10.2) mg/dL Albumin 3.1 L 2.9 L (3.5-5.0) g/dL Pituitary panel 05/23/24 Range/Units 06:40 Sodium 130 L (137-145) mmol/L Potassium 4.4 (3.5-5.1) mmol/L Chloride 100 (98-107) mmol/L Carbon Dioxide 26 (22-30) mmol/L BUN 4 L (7-17) mg/dL Creatinine 0.62 (0.52-1.04) mg/dL Glucose 91 (74-99) mg/dL Calcium 8.3 L (8.4-10.2) mg/dL Adrenal panel 05/23/24 05/23/24 Range/Units 06:40 06:40 Sodium 130 L (137-145) mmol/L Potassium 4.4 (3.5-5.1) mmol/L Chloride 100 (98-107) mmol/L Carbon Dioxide 26 (22-30) mmol/L BUN 4 L (7-17) mg/dL Creatinine 0.62 (0.52-1.04) mg/dL Glucose 91 (74-99) mg/dL Calcium 8.3 L (8.4-10.2) mg/dL Total Bilirubin 0.6 0.6 (0.2-1.3) mg/dL AST 19 22 (14-36) U/L ALT 12 12 (4-34) U/L Alkaline Phosphatase 47 47 (38-126) U/L Total Protein 5.3 L 5.3 L (6.3-8.2) g/dL Albumin 3.1 L 2.9 L (3.5-5.0) g/dL Assessment and Plan Assessment: 73 yo female w/ abdominal discomfort -continue bowel regimen -outpatient evaluation of hiatal hernia/cholithiasis, less likely symptomatic from this -advance diet as tolerated Time with Patient: Less than 30
[2024-05-24 06:49] LABS: Basophils % (A) 0 %; Eosinophils # (A) 0.3 k/uL (0-0.7); Eosinophils % (A) 4 %; HCT 33.5 % (34.0-46.0); HGB 10.9 gm/dL (11.4-16.0); Lymphocytes # (A) 1.4 k/uL (1.0-4.8); Lymphocytes % (A) 18 %; MCH 31.7 pg (25.0-35.0); MCHC 32.7 g/dL (31.0-37.0); Mean Platelet Volume 7.2; Monocytes # (A) 0.6 k/uL (0-1.0); Monocytes % (A) 8 %; Neutrophils # (A) 5.2 k/uL (1.3-7.7); Neutrophils % (A) 69 %; Platelet Count 353 k/uL (150-450); RBC 3.46 m/uL (3.80-5.40); RDW 12.5 % (11.5-15.5); WBC 7.6 k/uL (3.8-10.6)
[2024-05-24 07:20] LABS: ALT 15 U/L (4-34); AST 21 U/L (14-36); African American GFR (CKD) >90 (>60 ml/min/1.73 sqM); Albumin 2.6 g/dL (3.5-5.0); Alkaline Phosphatase 46 U/L (38-126); Anion Gap 3 mmol/L; Blood Urea Nitrogen 9 mg/dL (7-17); Calcium 7.8 mg/dL (8.4-10.2); Carbon Dioxide 26 mmol/L (22-30); Chloride 101 mmol/L (98-107); Glucose 85 mg/dL (74-99); Non-African American GFR(CKD) 86 (>60 ml/min/1.73 sqM); Potassium 4.5 mmol/L (3.5-5.1); Sodium 130 mmol/L (137-145); Total Bilirubin 0.4 mg/dL (0.2-1.3); Total Protein 4.8 g/dL (6.3-8.2)
[2024-05-24] MEDS ORDERED: CALCIUM CARBONATE 500 MG CHEWABLE PO PRN (08:24)
[2024-05-24] MEDS: prednisoLONE ACETATE 1% OPHTH DROPS 5 ML BTL BOTH EYES SCH (09:07)
[2024-05-24] MEDS: PANTOPRAZOLE 40 MG TABLET PO SCH (09:07)
--- NOTE | 2024-05-24 11:06 | P.PN ---
Subjective Patient is seen for follow-up for hyponatremia. Maintained on normal saline. Sodium has improved to 130 Abdominal pain has improved. Tolerating oral intake. No complaints of shortness of breath Started on Dulcolax for constipation. Objective - Vital Signs Vital signs: Vital Signs Temp 98.1 F 05/24/24 08:00 Pulse 92 05/24/24 08:00 Resp 18 05/24/24 08:00 BP 142/66 05/24/24 08:00 Pulse Ox 97 05/24/24 09:42 FiO2 21 05/24/24 09:42 Intake & Output 05/23/24 05/24/24 05/24/24 18:59 06:59 18:59 Intake Total 598 240 Balance 598 240 Weight 46.4 kg 46.4 kg Intake: Oral 598 240 Other: Voiding Method Toilet Toilet Toilet # Voids 1 1 # Bowel Movements 1 1 - Exam Patient is awake, comfortable, no acute distress. Examination of the heart S1 and S2 Examination of the lungs bilateral breath sounds are heard Abdomen is soft nontender Examination lower extremities shows 1+ edema [employer] exam grossly intact - Labs CBC & Chem 7: 05/24/24 05:39 05/24/24 05:39 Labs: Abnormal Lab Results - Last 24 Hours (Table) 05/24/24 05/24/24 Range/Units 05:39 05:39 RBC 3.46 L (3.80-5.40) m/uL Hgb 10.9 L (11.4-16.0) gm/dL Hct 33.5 L (34.0-46.0) % Sodium 130 L (137-145) mmol/L Calcium 7.8 L (8.4-10.2) mg/dL Total Protein 4.8 L (6.3-8.2) g/dL Albumin 2.6 L (3.5-5.0) g/dL Assessment and Plan Assessment: 1. Hypovolemic hyponatremia improved with normal saline. Urine osmolality 198 and random urine sodium 58. Continue to hold off on thiazide diuretics. Off of sodium chloride tablets 2. Hypercalcemia associated with calcium supplementation. Calcium has improved to 9.2. Thiazide diuretics can be associated with hypercalcemia as well due to decrease calcium excretion in the urine. Patient was taking calcium supplemen ts. 3. Hyperkalemia associated with MELISSA inhibitors and potassium sparing diuretics, improved. 4. Volume depletion Plan: Continue normal saline infusion. Repeat sodium in a.m. Encouraged increased oral intake
--- NOTE | 2024-05-24 14:18 | P.PN ---
Subjective Patient seen and evaluated at bedside. Patent feels better after having a large bowel movement. Tolerating diet. Denies nausea or vomiting. Objective - Vital Signs Vital signs: Vital Signs Temp 98.1 F 05/24/24 08:00 Pulse 91 05/24/24 11:55 Resp 16 05/24/24 11:55 BP 146/79 05/24/24 11:55 Pulse Ox 98 05/24/24 11:55 FiO2 21 05/24/24 09:42 Intake & Output 05/23/24 05/24/24 05/24/24 18:59 06:59 18:59 Intake Total 598 358 Balance 598 358 Weight 46.4 kg 46.4 kg Intake: Oral 598 358 Other: Voiding Method Toilet Toilet Toilet # Voids 1 1 2 # Bowel Movements 1 1 - Exam gen: nad cv: rrr pul: non labored breathing abd: soft, non distended, non tender to palpation, no guarding or rebound tenderness - Labs CBC & Chem 7: 05/24/24 05:39 05/24/24 05:39 Labs: Abnormal Lab Results - Last 24 Hours (Table) 05/24/24 05/24/24 Range/Units 05:39 05:39 RBC 3.46 L (3.80-5.40) m/uL Hgb 10.9 L (11.4-16.0) gm/dL Hct 33.5 L (34.0-46.0) % Sodium 130 L (137-145) mmol/L Calcium 7.8 L (8.4-10.2) mg/dL Total Protein 4.8 L (6.3-8.2) g/dL Albumin 2.6 L (3.5-5.0) g/dL Assessment and Plan Assessment: 73 yo female w/ abdominal discomfort developmental delay -continue bowel regimen (having large bowel movements) -outpatient evaluation of hiatal hernia/cholithiasis, less likely symptomatic from this -advance diet as tolerated -stable for discharge Time with Patient: Less than 30
--- NOTE | 2024-05-24 14:20 | P.PN ---
Subjective Progress Note Date: 05/24/24 73 year old F with PMH of Asthma, GERD, HLD, HLD presents to the ED for nausea, generalized weakness, lightheadedness, and poor appetite related to RUQ abdominal pain. In the ED she underwent extensive evaluation. BP 149/80, HR 105, T 98.3F, RR 17, 98% on RA. CBC, Coag panel, CMP significant for WBC 16.7, Plt 537, PT 9.9, Na 115, K 6, Cl 78, BUN 19, glu 129, Ca 10.3, alb 5. Trop < 0.012 x 2. Mag 2.0. UOSm 198, Sunny 58, SOsm 257. Given Ca chloride, Lokelma and IV insulin/D50 for hyperkalemia. Cardiology consulted for vague complaints of chest pain, Echo showed EF 55-60% with mild MR/TR, Troponins negative, ACS ruled out, no further workup, signed off. Patient started on IV hydration, HCTZ/Triamterene held and Nephrology consulted. Hyponatremia thought to be related to poor solute intake and the use of HCTZ/Triamterene. Salt tabs added for persistently low sodium. Sodium has now improved. CT AP showed large hiatal hernia, cholelithiasis and moderate stool. Surgery consulted for abdominal pain, recommending outpatient follow up. PT and OT has evaluated the patient recommending return to prior living situation on discharge. 05/24 Patient was seen and examined. Continue 6/10 abdominal pain. Reports weakness, does not feel comfortably going home. CBC and BMP significant for RBC 3.46, Hg 10.9, Hct 33.5, Na 130, Ca 7.8, alb 2.5. Maintained on NS at 75 cc/hr. General: non toxic, no distress, appears at stated age Derm: warm, dry Head: atraumatic, normocephalic, symmetric Eyes: EOMI, no lid lag, anicteric sclera Mouth: no lip lesion, mucus membranes moist Cardiovascular: S1S2 reg, holosystolic murmur Lungs: CTA bilateral, no rhonchi, no rales , no accessory muscle use Abdominal: Epigastric + RUQ tenderness without rebound Ext: no gross muscle atrophy, no edema, no contractures Neuro: no focal neuro deficits Psych: Alert, oriented, appropriate affect Based on my assessment of this patient, this patient meets a high complexity level of care. Severe hyponatremia: Likely due to poor salt intake + use of HCTZ/Triamterene. Maintained on NS at 75 cc/hr. Nephrology following. Abdominal pain: CT AP showing moderate stool, hiatal hernia and cholelithiasis. Dulcolax 10 mg rectal QD. Protonix 40 mg PO QD. Tums PRN. Morphine 2 mg IV TID PRN. Surgery recommending outpatient follow up. SIRS: Leukocytosis resolved. No obvious infections noted. Afebrile during hospital stay. HTN: BP 125/73. Holding Lisinopril, HCTZ, Triamterene. HLD: ASA 81 mg PO QD. Lipitor 40 mg PO QD. Glaucoma: Prednisolone eye drops. Depression: Celexa 40 mg PO QD. SIADH less likely the case. Resolved: Hyperkalemia PT and OT re-eval in the AM. Repeat Na in the AM. Continue IVF. Possible DC in 1-2 days. CODE STATUS: FULL CODE DVT Prophylaxis: Lovenox SQ GI Prophylaxis: Protonix PO Designated medical POA if patient is not able to make medical decisions for themselves: I have reviewed the following internal consultant notes: Nephrology, Surgery. I have reviewed the results of the following tests: CBC, BMP. I have ordered the following tests: BMP. I have discussed the care of this patient with the following independent historian: I have independently interpreted the following test below: I have discussed the management of this patient with the following physician: Objective - Vital Signs Vital signs: Vital Signs Temp 97.7 F 05/24/24 04:41 Pulse 70 05/24/24 04:41 Resp 16 05/24/24 04:41 BP 125/73 05/24/24 04:41 Pulse Ox 97 05/23/24 23:34 FiO2 21 05/23/24 09:30 Intake & Output 05/23/24 05/24/24 05/24/24 18:59 06:59 18:59 Intake Total 598 Balance 598 Weight 46.4 kg 46.4 kg Intake: Oral 598 Other: Voiding Method Toilet Toilet # Voids 1 1 # Bowel Movements 1 1 - Labs CBC & Chem 7: 05/24/24 05:39 05/24/24 05:39 Labs: Abnormal Lab Results - Last 24 Hours (Table) 05/24/24 05/24/24 Range/Units 05:39 05:39 RBC 3.46 L (3.80-5.40) m/uL Hgb 10.9 L (11.4-16.0) gm/dL Hct 33.5 L (34.0-46.0) % Sodium 130 L (137-145) mmol/L Calcium 7.8 L (8.4-10.2) mg/dL Total Protein 4.8 L (6.3-8.2) g/dL Albumin 2.6 L (3.5-5.0) g/dL
[2024-05-25 06:41] LABS: African American GFR (CKD) >90 (>60 ml/min/1.73 sqM); Anion Gap 3 mmol/L; Blood Urea Nitrogen 11 mg/dL (7-17); Calcium 8.6 mg/dL (8.4-10.2); Carbon Dioxide 31 mmol/L (22-30); Chloride 99 mmol/L (98-107); Glucose 84 mg/dL (74-99); Non-African American GFR(CKD) 86 (>60 ml/min/1.73 sqM); Potassium 4.5 mmol/L (3.5-5.1); Sodium 133 mmol/L (137-145)
[2024-05-25 09:02] VITALS: TEMP 98.1
[2024-05-25 11:17] VITALS: PULSE 83; RESP 17
--- NOTE | 2024-05-25 11:46 | P.PN ---
Subjective Progress Note Date: 05/25/24 Patient is here for follow-up for hyponatremia. Continues to be maintained on normal saline 75 cc/h. Sodium is improved to 133. States abdominal pain is improved following large bowel movement. No complaints shortness of breath. Continue on Dulcolax and MiraLAX. Objective - Vital Signs Vital signs: Vital Signs Temp 98.1 F 05/25/24 09:02 Pulse 86 05/25/24 09:02 Resp 15 05/25/24 09:02 BP 143/68 05/25/24 09:02 Pulse Ox 100 05/25/24 04:50 FiO2 21 05/24/24 09:42 Intake & Output 05/24/24 05/25/24 05/25/24 18:59 06:59 18:59 Intake Total 1678 Balance 1678 Weight 48.4 kg Intake: Oral 1678 Other: Voiding Method Toilet Toilet Toilet # Voids 1 1 - Exam Patient is awake, comfortable, no acute distress. Heart: S1 and S2 heard Lungs: Bilateral breath sounds heard Abdomen: Soft nontender Lower extremities: Trace edema SWITCHBOARD OPERATOR: Grossly intact - Labs CBC & Chem 7: 05/24/24 05:39 05/25/24 05:30 Labs: Abnormal Lab Results - Last 24 Hours (Table) 05/25/24 Range/Units 05:30 Sodium 133 L (137-145) mmol/L Carbon Dioxide 31 H (22-30) mmol/L Assessment and Plan Assessment: #Hypovolemic hyponatremia improved normal saline. Urine osmolality 198 and random urine sodium 50. - improved #Hypercalcemia, secondary to calcium supplementation and thiazide use- resolved #Hyperkalemia, possibly secondary MELISSA inhibitors and potassium sparing diuretics - resolved #Volume depletion Plan: -Repeat sodium 133 this morning -She is stable for discharge from nephrology standpoint -Discontinue thiazide diuretics -Repeat labs in 1 week I have seen and examined the patient with resident and agree with A&P as written. TSH wnl. F/u outpatient 1 week post d/c.
[2024-05-25 12:18] VITALS: BP 121/59
--- NOTE | 2024-05-25 13:09 | P.PN ---
Subjective Progress Note Date: 05/25/24 SURGICAL PROGRESS NOTE CHIEF COMPLAINT: Abdominal pain HISTORY OF PRESENT ILLNESS: Patient sitting up at bedside chair. She does complain of diffuse abdominal pain with some nausea and heartburn. She is having bowel movements. She is eating a small amount of her food. Afebrile. PHYSICAL EXAM: VITAL SIGNS: Reviewed. GENERAL: Well-developed in no acute distress. ABDOMEN: Soft. Nondistended. Mild diffuse abdominal pain NEUROLOGIC: Alert and oriented. Cranial nerves II through XII grossly intact. ASSESSMENT: 1. Abdominal pain likely due to constipation 2. Developmental delay PLAN: -Continue on a good bowel regimen -Continue regular diet -Recommend evaluation of hiatal hernia and cholelithiasis outpatient. It is unlikely that the hiatal hernia or cholelithiasis contributing to patient's current abdominal pain. -No surgical invention planned at this time -Continue PPI -Continue antiemetics as needed -Patient can be discharged from surgical standpoint Physician [employer] note has been reviewed by physician. Signing provider agrees with the documented findings, assessment, and plan of care. Attestation Patient seen and examined at bedside. Presented with chief complaint of abdominal pain and is found to have cholelithiasis and hiatal hernia. Patient still complaining of abdominal pain, however unlikely that hiatal hernia cholelithiasis is contributing to this as her pain is diffuse. No plan for surgical intervention at this time. Continue diet. Continue bowel regimen. Surgically stable for discharge. Shannon Jain DO Objective - Vital Signs Vital signs: Vital Signs Temp 98.1 F 05/25/24 09:02 Pulse 83 05/25/24 11:16 Resp 17 05/25/24 11:16 BP 121/59 05/25/24 12:17 Pulse Ox 98 05/25/24 11:16 FiO2 21 05/24/24 09:42 Intake & Output 05/24/24 05/25/24 05/25/24 18:59 06:59 18:59 Intake Total 1678 240 Balance 1678 240 Weight 48.4 kg Intake: Oral 1678 240 Other: Voiding Method Toilet Toilet Toilet # Voids 1 1 - Labs CBC & Chem 7: 05/24/24 05:39 05/25/24 05:30 Labs: Abnormal Lab Results - Last 24 Hours (Table) 05/25/24 Range/Units 05:30 Sodium 133 L (137-145) mmol/L Carbon Dioxide 31 H (22-30) mmol/L
--- NOTE | 2024-05-25 13:11 | P.DS ---
Providers Date of admission: 05/19/24 14:44 Expected date of discharge: 05/25/24 Attending physician: Jace Lim Consults: 05/19/24 14:43 Consult Physician Urgent Consulting Provider: Catherine Mathur Consult Reason/Comments: Hyponatremia, hyperkalemia Do you want consulting provider notified?: Yes 05/22/24 12:25 Consult Physician Routine Consulting Provider: Alejandro Rubin Consult Reason/Comments: cholelithiasis and worsening abdominal discomfort Do you want consulting provider notified?: Yes Primary care physician: Dayana Lyon MD Hospital Course: 73 year old F with PMH of Asthma, GERD, HLD, HLD presents to the ED for nausea, generalized weakness, lightheadedness, and poor appetite related to RUQ abdominal pain. In the ED she underwent extensive evaluation. BP 149/80, HR 105, T 98.3F, RR 17, 98% on RA. CBC, Coag panel, CMP significant for WBC 16.7, Plt 537, PT 9.9, Na 115, K 6, Cl 78, BUN 19, glu 129, Ca 10.3, alb 5. Trop < 0.012 x 2. Mag 2.0. UOSm 198, Sunny 58, SOsm 257. Given Ca chloride, Lokelma and IV insulin/D50 for hyperkalemia. Cardiology consulted for vague complaints of chest pain, Echo showed EF 55-60% with mild MR/TR, Troponins negative, ACS ruled out, no further workup, signed off. Patient started on IV hydration, HCTZ/Triamterene held and Nephrology consulted. Hyponatremia thought to be related to poor solute intake and the use of HCTZ/Triamterene. Salt tabs added for persistently low sodium. Sodium has now improved. CT AP showed large hiatal hernia, cholelithiasis and moderate stool. Surgery consulted for abdominal pain, recommending outpatient follow up. PT and OT has evaluated the patient recommending return to prior living situation on discharge. 05/24 Patient was seen and examined. Continue 6/10 abdominal pain. Reports weakne ss, does not feel comfortably going home. CBC and BMP significant for RBC 3.46, Hg 10.9, Hct 33.5, Na 130, Ca 7.8, alb 2.5. Maintained on NS at 75 cc/hr. 05/25 Patient was seen and examined. Continued abdominal pain. She has worked well with PT and OT recommending walker on discharge. Discussed with Kiara ARGUETA and Dr. Jain, outpatient follow up for cholelithiasis and hiatal hernia. Discussed with Dr. Manzo, cleared for discharge, stop HCTZ/Triamterene. BMP significant for Na 133, bicarb 31. Discharge Instruction: Diet: 1.5 L fluid restriction. Stop hydrochlorothiazine and triamterene. Repeat BMP in 7 days to be followed up with PCP. Follow up with PCP within 1-2 days of discharge. Follow up with Nephrology and Surgery within 1 week of discharge. General: non toxic, no distress, appears at stated age Derm: warm, dry Head: atraumatic, normocephalic, symmetric Eyes: EOMI, no lid lag, anicteric sclera Mouth: no lip lesion, mucus membranes moist Cardiovascular: S1S2 reg, holosystolic murmur Lungs: CTA bilateral, no rhonchi, no rales , no accessory muscle use Abdominal: Epigastric + RUQ tenderness without rebound Ext: no gross muscle atrophy, no edema, no contractures Neuro: no focal neuro deficits Psych: Alert, oriented, appropriate affect Discharge Diagnosis: Severe hyponatremia Cholelithaisis Large hiatal hernia SIRS with no signs of active infection HTN HLD Glaucoma Depression Resolved: Hyperkalemia This complex discharge took 35 minutes to complete. Patient Condition at Discharge: Stable Plan - Discharge Summary Discharge Rx Participant: No New Discharge Prescriptions: New Aspirin 81 mg PO DAILY #30 tab Atorvastatin [Lipitor] 40 mg PO HS #30 tab polyethylene glycoL 3350 [Miralax] 17 gm PO DAILY #30 packet Pantoprazole [Protonix] 40 mg PO AC-BRKFST #30 tab Acetaminophen Tab [Tylenol] 650 mg PO Q6HR PRN tab PRN Reason: Fever And/ Or Pain Continue Citalopram Hydrobromide [CeleXA] 40 mg PO DAILY traMADol HCL 50 mg PO BID PRN PRN Reason: Pain prednisoLONE ACETATE 1% OPHTH [Pred Forte 1%] 1 drops BOTH EYES BID Calcium Carbonate [Calcium] 600 mg PO DAILY lisinopriL [Zestril] 5 mg PO DAILY Baclofen [Lioresal] 20 mg PO HS Discontinued Triamterene/Hydrochlorothiazid [Triamterene-Hctz 37.5-25 mg Tb] 1 tab PO DAILY Atorvastatin [Lipitor] 10 mg PO HS Discharge Medication List Citalopram Hydrobromide [CeleXA] 40 mg PO DAILY 10/13/15 [History] lisinopriL [Zestril] 5 mg PO DAILY 09/11/23 [History] Baclofen [Lioresal] 20 mg PO HS 05/19/24 [History] Calcium Carbonate [Calcium] 600 mg PO DAILY 05/19/24 [History] prednisoLONE ACETATE 1% OPHTH [Pred Forte 1%] 1 drops BOTH EYES BID 05/19/24 [History] traMADol HCL 50 mg PO BID PRN 05/19/24 [History] Acetaminophen Tab [Tylenol] 650 mg PO Q6HR PRN tab 05/25/24 [Rx] Aspirin 81 mg PO DAILY #30 tab 05/25/24 [Rx] Atorvastatin [Lipitor] 40 mg PO HS #30 tab 05/25/24 [Rx] Pantoprazole [Protonix] 40 mg PO AC-BRKFST #30 tab 05/25/24 [Rx] polyethylene glycoL 3350 [Miralax] 17 gm PO DAILY #30 packet 05/25/24 [Rx] Follow up Appointment(s)/Referral(s): Dayana Lyon MD [Primary Care Provider] - 1-2 days Discharge Disposition: HOME SELF-CARE
== END 2024-05-25 14:46 | disposition home or self-care (01) | DRG 641 ==
LOC: EC 11:54 → 1SOBS 14:44 → 3SCARD 16:12
PROVIDERS: ADMIT Student in an Organized Health Care Education/Training Program; ATTEND Student in an Organized Health Care Education/Training Program
DX: E87.1 Hypo-osmolality and hyponatremia (principal); E83.51 Hypocalcemia; F32.A Depression, unspecified; I10 Essential (primary) hypertension; J45.909 Unspecified asthma, uncomplicated; I08.1 Rheumatic disorders of both mitral and tricuspid valves; R65.10 Systemic inflammatory response syndrome (SIRS) of non-infectious origin without acute organ dysfunction; D72.829 Elevated white blood cell count, unspecified; D75.839 Thrombocytosis, unspecified; E78.5 Hyperlipidemia, unspecified; E83.52 Hypercalcemia; E86.1 Hypovolemia; E16.2 Hypoglycemia, unspecified; E87.5 Hyperkalemia; F41.9 Anxiety disorder, unspecified; H40.9 Unspecified glaucoma; K44.9 Diaphragmatic hernia without obstruction or gangrene; K58.1 Irritable bowel syndrome with constipation; K80.20 Calculus of gallbladder without cholecystitis without obstruction; G89.29 Other chronic pain; M54.9 Dorsalgia, unspecified; K21.9 Gastro-esophageal reflux disease without esophagitis; Z79.82 Long term (current) use of aspirin; Z79.899 Other long term (current) drug therapy; Z88.1 Allergy status to other antibiotic agents; Z87.01 Personal history of pneumonia (recurrent); Z87.440 Personal history of urinary (tract) infections; Z60.2 Problems related to living alone
CPT/HCPCS: 36415; 71046; 74022; 74177; 80048; 80053; 80061; 80076; 82306; 83735; 83930; 83935; 84295; 84300; 84443; 84484; 85025; 85610; 85730; 87636; 93005; 93306; 94760; 96361; 96372; 96374; 96375; 96376; 99291

== ENCOUNTER → 2024-06-25 | Outpatient (CLI) | payer MEDICARE, BC ==
[2024-06-25 19:03] LABS: Basophils # (A) 0.06 X 10*3/uL (0.00-0.10); Basophils % (A) 0.9 %; Eosinophils # (A) 0.07 X 10*3/uL (0.04-0.35); Eosinophils % (A) 1.1 %; HCT 38.1 % (37.2-46.3); HGB 12.6 g/dL (12.0-15.0); Lymphocytes # (A) 1.36 X 10*3/uL (0.90-5.00); Lymphocytes % (A) 21.3 %; MCHC 33.1 g/dL (32.0-37.0); MCV 93.8 FL (80.0-97.0); Mean Platelet Volume 9.6 FL (9.5-12.2); Monocytes # (A) 0.59 X 10*3/uL (0.20-1.00); Monocytes % (A) 9.2 %; NRBC Per 100 WBC 0 X 10*3/uL (0.00-0.01); Neutrophils # (A) 4.26 X 10*3/uL (1.80-7.70); Neutrophils % (A) 66.9 %; Platelet Count 415 X 10*3/uL (140-440); RBC 4.06 X 10*6/uL (4.10-5.20); RDW 12.9 % (11.5-14.5); WBC 6.38 X 10*3/uL (4.50-10.00)
[2024-06-25 19:10] LABS: Blood Urea Nitrogen 15.5 mg/dL (9.0-27.0); Calcium 9.5 mg/dL (8.7-10.3); Carbon Dioxide 22.8 mmol/L (21.6-31.8); Chloride 89 mmol/L (96-109); Glucose 93 mg/dL (70-110); Potassium 4.8 mmol/L (3.5-5.5); Sodium 125 mmol/L (135-145)
== END | disposition home or self-care (01) ==
LOC: LABWHC1 13:08
PROVIDERS: ATTEND Family Medicine
DX: Z01.812 Encounter for preprocedural laboratory examination (principal)
CPT/HCPCS: 36415; 80048; 85025

== ENCOUNTER 2024-06-30 10:21 | Inpatient (IN) | payer MEDICARE, BC ==
[~2024-06-30 10:21] MED LIST: HYDROmorphone 0.5 MG/0.5 ML SYRINGE IVP PRN; LIDOCAINE 1% (10MG/ML) FOR IV START INTRADERMA PRN; MIDAZOLAM 2 MG/2 ML VIAL IV PRN; fentaNYL (PF) 50 MCG/ML 2 ML AMP IVP PRN
[2024-06-30] MEDS: IV FLUID CONTINUATION 1,000 ML IV ONE (13:15)
[2024-06-30] MEDS: ONDANSETRON 4 MG/2 ML VIAL IVP ONE (13:19)
[2024-06-30] MEDS: DEXAMETHASONE SOD PHOSPHATE 4 MG/ML 1 ML VIAL IV ONE (13:20)
[2024-06-30] MEDS: LACTATED RINGERS 1,000 ML IV SCH (13:20)
[2024-06-30 13:31] LABS: African American GFR (CKD) >90 (>60 ml/min/1.73 sqM); Anion Gap 13 mmol/L; Blood Urea Nitrogen 15 mg/dL (7-17); Calcium 9.8 mg/dL (8.4-10.2); Carbon Dioxide 22 mmol/L (22-30); Chloride 89 mmol/L (98-107); Glucose 105 mg/dL (74-99); Non-African American GFR(CKD) 79 (>60 ml/min/1.73 sqM); Potassium 4.1 mmol/L (3.5-5.1); Sodium 124 mmol/L (137-145)
[2024-06-30] MEDS: SODIUM CHLORIDE 0.9% 500 ML 500 ML IV ONE (13:49)
--- NOTE | 2024-06-30 15:50 | P.GSHP ---
History of Present Illness H&P Date: 06/30/24 This is a 74 year old female that was scheduled to undergo a Robotic Hiatal Hernia Repair with Fundoplication today 06/30/24. Her surgery was canceled by anesthesia due to her hyponatremia. She states that she has had this issue before and has been hospitalized for it. Her family requested that she be admitted to the hospital and her sodium be corrected and she have her surgery during this admission. She has been board for Hiatal Hernia Repair this upcoming Saturday. PMHX/PSXH: Reviewed Allergies: Clarithromycin, Flagyl Social HX: Denies Tobacco, ETOH and Drug Use. Has Developmental Delay VSS General-NAD CVS-RRR Lungs-NLB Abdomen-soft, NTND 74 year old female with Hiatal Hernia. Surgery scheduled for 06/30/24 canceled due to Hyponatremia -Admit to Surgery -Patient tentatively boarded for Monday 07/03 for Hiatal Hernia Repair -Full Liquid Diet: Do not advance -Medicine Consult for medical management -Nephrology Consult for Hyponatremia -IV fluids -Discharge Planning consult at family request [facility] [phone] Past Medical History Past Medical History: Asthma, GERD/Reflux, Hyperlipidemia, Hypertension, Pneumonia Additional Past Medical History / Comment(s): Bronchitis, small hiatal hernia, constipation, IBS, occasional UTIs, chronic back pain. History of Any Multi-Drug Resistant Organisms: None Reported Past Surgical History: Tonsillectomy, Tubal Ligation Additional Past Surgical History / Comment(s): EGD, colonoscopies Past Anesthesia/Blood Transfusion Reactions: No Reported Reaction Additional Past Anesthesia/Blood Transfusion Reaction / Comment(s): per sister can be a little melodramatic Additional Psychological History / Comment(s): Pt resides alone. She uses no assistive device. She attended special education. She does not drive, she uses the bus system. She sees a psych therapist, Mary Mejias. - Past Family History Mother History Unknown: Yes Additional Family Medical History / Comment(s): Mother is Father History Unknown: Yes Additional Family Medical History / Comment(s): Father is . Medications and Allergies Home Medications Medication Instructions Recorded Confirmed Type Citalopram Hydrobromide [CeleXA] 40 mg PO DAILY 10/13/15 06/30/24 History lisinopriL [Zestril] 5 mg PO DAILY 09/11/23 06/30/24 History Calcium Carbonate [Calcium] 600 mg PO DAILY 05/19/24 06/25/24 History prednisoLONE ACETATE 1% OPHTH 1 drops BOTH EYES BID 05/19/24 06/30/24 History [Pred Forte 1%] Acetaminophen Tab [Tylenol] 650 mg PO Q6HR PRN tab 05/25/24 06/30/24 Rx Aspirin 81 mg PO DAILY #30 tab 05/25/24 06/30/24 Rx Atorvastatin [Lipitor] 40 mg PO HS #30 tab 05/25/24 06/30/24 Rx Pantoprazole [Protonix] 40 mg PO AC-BRKFST #30 tab 05/25/24 06/30/24 Rx Ferrous Sulfate [Iron] 325 mg PO DAILY 06/25/24 06/25/24 History Allergies Allergy/AdvReac Type Severity Reaction Status Date / Time clarithromycin [From Biaxin] AdvReac Unknown Verified 06/30/24 14:50 metronidazole [From Flagyl] AdvReac Unknown Verified 06/30/24 14:50 Surgical - Exam Vital Signs Temp Pulse Resp BP Pulse Ox 98.3 F 86 16 119/69 100 06/30/24 12:50 06/30/24 12:50 06/30/24 12:50 06/30/24 12:50 06/30/24 12:50 Results - Labs 06/30/24 12:45 Abnormal Lab Results - Last 24 Hours (Table) 06/30/24 Range/Units 12:45 Sodium 124 L (137-145) mmol/L Chloride 89 L (98-107) mmol/L Glucose 105 H (74-99) mg/dL Diabetes panel 06/30/24 Range/Units 12:45 Sodium 124 L (137-145) mmol/L Potassium 4.1 (3.5-5.1) mmol/L Chloride 89 L (98-107) mmol/L Carbon Dioxide 22 (22-30) mmol/L BUN 15 (7-17) mg/dL Creatinine 0.76 (0.52-1.04) mg/dL Glucose 105 H (74-99) mg/dL Calcium 9.8 (8.4-10.2) mg/dL Calcium panel 06/30/24 Range/Units 12:45 Calcium 9.8 (8.4-10.2) mg/dL Pituitary panel 06/30/24 Range/Units 12:45 Sodium 124 L (137-145) mmol/L Potassium 4.1 (3.5-5.1) mmol/L Chloride 89 L (98-107) mmol/L Carbon Dioxide 22 (22-30) mmol/L BUN 15 (7-17) mg/dL Creatinine 0.76 (0.52-1.04) mg/dL Glucose 105 H (74-99) mg/dL Calcium 9.8 (8.4-10.2) mg/dL Adrenal panel 06/30/24 Range/Units 12:45 Sodium 124 L (137-145) mmol/L Potassium 4.1 (3.5-5.1) mmol/L Chloride 89 L (98-107) mmol/L Carbon Dioxide 22 (22-30) mmol/L BUN 15 (7-17) mg/dL Creatinine 0.76 (0.52-1.04) mg/dL Glucose 105 H (74-99) mg/dL Calcium 9.8 (8.4-10.2) mg/dL
[2024-06-30] MEDS: ACETAMINOPHEN TAB 325 MG TAB PO PRN (17:09)
[2024-06-30] MEDS: SODIUM CHLORIDE 0.9% 1,000 ML IV SCH (17:10)
--- NOTE | 2024-06-30 17:24 | P.CONS ---
History of Present Illness - Reason for Consult Consult date: 06/30/24 Medical Management - History of Present Illness History of present illness; 74-year-old female with PMH of asthma, GERD, hyperlipidemia, hypertension, hiatal hernia, who was scheduled to undergo surgery to repair hiatal hernia today, however surgery was canceled due to her hyponatremia. She has her surgery tentatively rescheduled for 07/03/24. Patient reports absence of fever, chills, weight loss, chest pain, palpitations, diaphoresis, dyspnea, cough, nausea, vomiting, constipation, diarrhea, abdominal pain, weakness, myalgia, dizziness, headache, and dysuria. Internal medicine was consulted for medical management. Initial lab workup revealed -Sodium 124, potassium 4.1, chloride 89, bicarb 22, BUN 15, creatinine 0.76 REVIEW OF SYSTEMS: All systems reviewed, pertinent positives and negatives noted in HPI. All other symptoms are negative. PHYSICAL EXAMINATION: Vitals reviewed GENERAL: No acute distress. Well developed, well nourished. HEENT: Pupils are round and equally reacting to light. EOMI. No scleral icterus. Normocephalic, atraumatic. No pharyngeal erythema. No thyromegaly. CARDIOVASCULAR: S1 and S2 present. No murmurs, rubs, or gallops. PULMONARY: Chest is clear to auscultation, no wheezing, rhonchi, or crackles. ABDOMEN: Soft, nontender, nondistended, normoactive bowel sounds. No palpable organomegaly. MUSCULOSKELETAL: No apparent joint swelling and deformities. EXTREMITIES: No apparent cyanosis, clubbing, or pedal edema. NEUROLOGICAL: The patient is alert and oriented x3, Gross neurological examination did not reveal any focal deficits. 5/5 strength bilateral UE and LE. SKIN: No apparent rashes. Assessment and plan 74-year-old female with PMH of asthma, GERD, hyperlipidemia, hypertension, hiatal hernia, who was scheduled to undergo surgery to repair hiatal hernia today, however surgery was canceled due to her hyponatremia. She has her surgery tentatively rescheduled for 07/03/24. #Chronic, likely hypovolemic, hyponatremia -Nephrology consulted -On NS at 130 cc/h -Monitor BMP closely, recheck BMP at approximately 0:00 on 07/01/24 -Urine osmolality, serum osmolality, urine sodium ordered, currently pending Chronic Medical Conditions #Essential hypertension -Resume home Lisinopril 5 mg daily #Hyperlidemia -Resume home Atorvastatin 40 mg daily #GERD -Resume home pantoprazole 40mg daily #Anxiety/Depression -Resume home Celexa 40 mg daily #Hiatal hernia repair -Surgery tentatively scheduled for 07/03/2024 -Pain management and DVT prophylaxis per primary surgical team F: NS at 130 cc/h E: Replete as needed N: Full liquid diet with Ensure DVT ppx: per primary surgical team Code status: Full code Follow up CBC and BMP in AM Dictation was produced using [employer] dictation software. Please excuse any gr ammatical, word or spelling errors. Hermes Markham MD PGY-1 IM Thank you for allowing us to participate in the care of this pleasant patient. Do not hesitate to contact us with questions. Someone can be reached from the [facility] [place] hospitalist group all hours of the day at [phone] or via [employer]. I have seen and evaluated the patient today. Discussed with the resident and agree with the residents finding and plan as documented in the resident's note. Changes highlighted in blue font. Past Medical History Past Medical History: Asthma, GERD/Reflux, Hyperlipidemia, Hypertension, Pneumonia Additional Past Medical History / Comment(s): Bronchitis, small hiatal hernia, constipation, IBS, occasional UTIs, chronic back pain. History of Any Multi-Drug Resistant Organisms: None Reported Past Surgical History: Tonsillectomy, Tubal Ligation Additional Past Surgical History / Comment(s): EGD, colonoscopies Past Anesthesia/Blood Transfusion Reactions: No Reported Reaction Additional Past Anesthesia/Blood Transfusion Reaction / Comm: per sister can be a little melodramatic Additional Psychological History / Comment(s): Pt resides alone. She uses no assistive device. She attended special education. She does not drive, she uses the bus system. She sees a psych therapist, Mary Mejias. - Past Family History Mother History Unknown: Yes Additional Family Medical History / Comment(s): Mother is Father History Unknown: Yes Additional Family Medical History / Comment(s): Father is . Medications and Allergies Home Medications Medication Instructions Recorded Confirmed Type Citalopram Hydrobromide [CeleXA] 40 mg PO DAILY 10/13/15 06/30/24 History lisinopriL [Zestril] 5 mg PO DAILY 09/11/23 06/30/24 History Calcium Carbonate [Calcium] 600 mg PO DAILY 05/19/24 06/25/24 History prednisoLONE ACETATE 1% OPHTH 1 drops BOTH EYES BID 05/19/24 06/30/24 History [Pred Forte 1%] Acetaminophen Tab [Tylenol] 650 mg PO Q6HR PRN tab 05/25/24 06/30/24 Rx Aspirin 81 mg PO DAILY #30 tab 05/25/24 06/30/24 Rx Atorvastatin [Lipitor] 40 mg PO HS #30 tab 05/25/24 06/30/24 Rx Pantoprazole [Protonix] 40 mg PO AC-BRKFST #30 tab 05/25/24 06/30/24 Rx Ferrous Sulfate [Iron] 325 mg PO DAILY 06/25/24 06/25/24 History Allergies Allergy/AdvReac Type Severity Reaction Status Date / Time clarithromycin [From Biaxin] AdvReac Unknown Verified 06/30/24 14:50 metronidazole [From Flagyl] AdvReac Unknown Verified 06/30/24 14:50 Physical Exam Vitals: Vital Signs Temp Pulse Resp BP Pulse Ox 06/30/24 15:50 98.6 F 82 17 110/67 94 L 06/30/24 15:14 90 16 136/70 99 06/30/24 12:50 98.3 F 86 16 119/69 100 Intake and Output 06/30/24 06/30/24 06/30/24 06:59 14:59 22:59 Intake Total 50 Balance 50 Intake: IV 50 Other: Weight 42 kg Results CBC & Chem 7: 06/30/24 12:45 Labs: Abnormal Lab Results - Last 24 Hours (Table) 06/30/24 Range/Units 12:45 Sodium 124 L (137-145) mmol/L Chloride 89 L (98-107) mmol/L Glucose 105 H (74-99) mg/dL
[2024-06-30] MEDS: MELATONIN 5 MG TABLET PO PRN (20:22)
[2024-06-30] MEDS: ATORVASTATIN 40 MG TAB PO SCH (20:22)
[2024-07-01 00:14] LABS: African American GFR (CKD) >90 (>60 ml/min/1.73 sqM); Anion Gap 5 mmol/L; Blood Urea Nitrogen 16 mg/dL (7-17); Calcium 8.8 mg/dL (8.4-10.2); Carbon Dioxide 24 mmol/L (22-30); Chloride 97 mmol/L (98-107); Glucose 129 mg/dL (74-99); Non-African American GFR(CKD) 86 (>60 ml/min/1.73 sqM); Potassium 4.5 mmol/L (3.5-5.1); Sodium 126 mmol/L (137-145)
[2024-07-01 08:21] LABS: Basophils # (A) 0.02 X 10*3/uL (0.00-0.10); Basophils % (A) 0.3 %; Eosinophils # (A) 0 X 10*3/uL (0.04-0.35); Eosinophils % (A) 0 %; HCT 30.5 % (37.2-46.3); HGB 10.2 g/dL (12.0-15.0); Lymphocytes # (A) 0.92 X 10*3/uL (0.90-5.00); Lymphocytes % (A) 13.5 %; MCH 31.5 pg (27.0-32.0); MCHC 33.4 g/dL (32.0-37.0); MCV 94.1 FL (80.0-97.0); Mean Platelet Volume 9.1 FL (9.5-12.2); Monocytes # (A) 0.49 X 10*3/uL (0.20-1.00); Monocytes % (A) 7.2 %; NRBC Per 100 WBC 0 X 10*3/uL (0.00-0.01); Neutrophils # (A) 5.36 X 10*3/uL (1.80-7.70); Neutrophils % (A) 78.6 %; Platelet Count 273 X 10*3/uL (140-440); RBC 3.24 X 10*6/uL (4.10-5.20); RDW 12.6 % (11.5-14.5); WBC 6.82 X 10*3/uL (4.50-10.00)
[2024-07-01 08:32] LABS: BUN/Creat Ratio 18.71 Ratio (12.00-20.00); Blood Urea Nitrogen 13.1 mg/dL (9.0-27.0); Calcium 8.3 mg/dL (8.7-10.3); Carbon Dioxide 20.9 mmol/L (21.6-31.8); Chloride 101 mmol/L (96-109); Glucose 109 mg/dL (70-110); Potassium 4.3 mmol/L (3.5-5.5); Sodium 131 mmol/L (135-145)
[2024-07-01] MEDS: CITALOPRAM HYDROBROMIDE 20 MG TAB PO SCH (08:34)
[2024-07-01] MEDS: lisinopriL 5 MG TAB PO SCH (08:34)
[2024-07-01] MEDS: PANTOPRAZOLE 40 MG TABLET PO SCH (08:34)
[2024-07-01] MEDS: ASPIRIN 81 MG PO SCH (08:34)
[2024-07-01] MEDS: ONDANSETRON 4 MG/2 ML VIAL IVP PRN (09:47)
--- NOTE | 2024-07-01 11:58 | P.PN ---
Subjective Progress Note Date: 07/01/24 74-year-old female with PMH of asthma, GERD, hyperlipidemia, hypertension, hiatal hernia, who was scheduled to undergo surgery to repair hiatal hernia today, however surgery was canceled due to her hyponatremia. She has her surgery tentatively rescheduled for 07/03/24. Patient reports absence of fever, chills, weight loss, chest pain, palpitations, diaphoresis, dyspnea, cough, nausea, vomiting, constipation, diarrhea, abdominal pain, weakness, myalgia, dizziness, headache, and dysuria. Internal medicine was consulted for medical management. 07/01 - She is seen at bedside this morning. No acute events overnight, no acute complaints this morning. Recheck sodium at midnight showed an increase to 126 from 124. Sodium this morning shown to be 131. REVIEW OF SYSTEMS: Pertinent positives and negatives noted in HPI. Physical Exam: General: nontoxic, no distress, appears at stated age Derm: warm, dry, intact Head: atraumatic, normocephalic, symmetric Eyes: EOMI, anicteric sclera Mouth: no lip lesion, mucus membranes moist Cardiovascular: S1 S2 reg, no murmur, rubs, or gallops Lungs: CTA bilateral, no rales, no accessory muscle use Abdominal: soft, non-tender to palpataion, no appreciable organomegaly Extremities: no gross muscle atrophy, no edema, no contractures Neuro: Alert, Oriented, CNII-XII grossly intact, gait normal Psych: well appearing, appropriate affect Data Received Today: Labs: WBC 6.82, hemoglobin 10.2, medic at 30.5, platelet 273; sodium 131, potassium 4.3, bicarb 20.9, BUN 13.1, creatinine 0.7, calcium 8.3 Imagining: No new imaging to Assessment and plan 74-year-old female with PMH of asthma, GERD, hyperlipidemia, hypertension, hiatal hernia, who was scheduled to undergo surgery to repair hiatal hernia today, however surgery was canceled due to her hyponatremia. She has her surgery tentatively rescheduled for 07/03/24. #Chronic, likely hypovolemic, hyponatremia -Nephrology consulted -Switch to NS at 75 cc/h -BMP recheck at approximately midnight on 07/01/24 showed a sodium of 126 -Monitor BMP closely -Urine osmolality 234,urine sodium ordered <20 -Serum osmolality ordered, currently pending #Constipation -Initiate MiraLAX daily #Normocytic anemia -Continue monitor CBC -Reticulocyte count ordered, currently pending Chronic Medical Conditions #Essential hypertension -Resume home Lisinopril 5 mg daily #Hyperlidemia -Resume home Atorvastatin 40 mg daily #GERD -Resume home pantoprazole 40mg daily #Anxiety/Depression -Resume home Celexa 40 mg daily #Hiatal hernia repair -Surgery tentatively scheduled for 07/03/2024 -Pain management and DVT prophylaxis per primary surgical team NSQIP risk assessment: -Risk of any complication: 17.8% -Cardiac application: 1.0% -: 2.3% -Patient medically optimized for surgery DVT ppx: SCDs Code status: Full code F: NS at 75 cc/h E: Replete as needed N: Full liquid diet A: Ambulatory at baseline Anticipated discharge place: Pending clinical course Anticipated discharge time: Pending clinical course Dictation was produced using [employer] dictation software. please excuse any grammatical, word or spelling errors. Hermes Markham MD PGY-1 IM Thank you for allowing us to participate in the care of this pleasant patient. Do not hesitate to contact us with questions. Someone can be reached from the [facility] hospitalist group all hours of the day at [phone] or via [employer]. I have seen and evaluated the patient today. Discussed with the resident and agree with the residents finding and plan as documented in the resident's note. Changes highlighted in blue font. Objective - Vital Signs Vital signs: Vital Signs Temp 97.1 F L 07/01/24 07:27 Pulse 74 07/01/24 07:27 Resp 18 07/01/24 07:27 BP 124/63 07/01/24 07:27 Pulse Ox 100 07/01/24 07:27 FiO2 Intake & Output 06/30/24 07/01/24 07/01/24 18:59 06:59 18:59 Intake Total 770 540 Output Total 1 Balance 769 540 Weight 42 kg Intake: IV 50 Oral 720 540 Output: Urine 1 Other: Voiding Method Toilet # Voids 1 - Labs CBC & Chem 7: 07/01/24 04:38 07/01/24 04:38 Labs: Abnormal Lab Results - Last 24 Hours (Table) 06/30/24 06/30/24 06/30/24 Range/Units 12:45 17:30 17:30 Sodium 124 L (137-145) mmol/L Chloride 89 L (98-107) mmol/L Glucose 105 H (74-99) mg/dL Urine Osmolality 234 L (400-1100) mOsm/kg Ur Random Sodium <20 L (40-220) mmol/L 06/30/24 Range/Units 23:45 Sodium 126 L (137-145) mmol/L Chloride 97 L (98-107) mmol/L Glucose 129 H (74-99) mg/dL Urine Osmolality (400-1100) mOsm/kg Ur Random Sodium (40-220) mmol/L
[2024-07-01] MEDS: SODIUM CHLORIDE 0.9% 1,000 ML IV SCH (13:01)
[2024-07-01] MEDS: polyethylene glycoL 3350 17 GM POWD.PACK PO PRN (13:20)
--- NOTE | 2024-07-01 14:08 | P.NPCON ---
History of Present Illness - Reason for Consult hyponatremia - History of Present Illness Patient is a 74-year-old female with history of hypertension, hiatal hernia. She was admitted to the hospital for repair of hiatal hernia however surgery was canceled due to hyponatremia. Serum sodium was 124 on admission and increased to 131 today. Patient was maintained on normal saline which has been reduced. She does have a previous history of hyponatremia during hospitalization in May 2024. She responded well to Samsca at that time. Patient does admit to not having had good oral intake. Urine osmolality is on the lower side at 234 and random urine sodium was less than 20 Past Medical History Past Medical History: Asthma, GERD/Reflux, Hyperlipidemia, Hypertension, Pneumonia Additional Past Medical History / Comment(s): Bronchitis, small hiatal hernia, constipation, IBS, occasional UTIs, chronic back pain. History of Any Multi-Drug Resistant Organisms: None Reported Past Surgical History: Tonsillectomy, Tubal Ligation Additional Past Surgical History / Comment(s): EGD, colonoscopies Past Anesthesia/Blood Transfusion Reactions: No Reported Reaction Additional Past Anesthesia/Blood Transfusion Reaction / Comment(s): per sister can be a little melodramatic Additional Psychological History / Comment(s): Pt resides alone. She uses no assistive device. She attended special education. She does not drive, she uses the bus system. She sees a psych therapist, Mary Mejias. - Past Family History Mother History Unknown: Yes Additional Family Medical History / Comment(s): Mother is Father History Unknown: Yes Additional Family Medical History / Comment(s): Father is . Medications and Allergies Home Medications Medication Instructions Recorded Confirmed Type Citalopram Hydrobromide [CeleXA] 40 mg PO DAILY 10/13/15 06/30/24 History lisinopriL [Zestril] 5 mg PO DAILY 09/11/23 06/30/24 History Calcium Carbonate [Calcium] 600 mg PO DAILY 05/19/24 06/25/24 History prednisoLONE ACETATE 1% OPHTH 1 drops BOTH EYES BID 05/19/24 06/30/24 History [Pred Forte 1%] Acetaminophen Tab [Tylenol] 650 mg PO Q6HR PRN tab 05/25/24 06/30/24 Rx Aspirin 81 mg PO DAILY #30 tab 05/25/24 06/30/24 Rx Atorvastatin [Lipitor] 40 mg PO HS #30 tab 05/25/24 06/30/24 Rx Pantoprazole [Protonix] 40 mg PO AC-BRKFST #30 tab 05/25/24 06/30/24 Rx Ferrous Sulfate [Iron] 325 mg PO DAILY 06/25/24 06/25/24 History Allergies Allergy/AdvReac Type Severity Reaction Status Date / Time clarithromycin [From Biaxin] AdvReac Unknown Verified 06/30/24 14:50 metronidazole [From Flagyl] AdvReac Unknown Verified 06/30/24 14:50 Physical Exam Vitals: Vital Signs Temp Pulse Resp BP Pulse Ox 07/01/24 12:29 97.9 F 77 19 104/64 100 07/01/24 07:27 97.1 F L 74 18 124/63 100 07/01/24 01:41 96.7 F L 76 12 96/61 98 06/30/24 20:00 96.4 F L 89 16 100/63 89 L 06/30/24 15:50 98.6 F 82 17 110/67 94 L 06/30/24 15:14 90 16 136/70 99 Intake and Output 06/30/24 07/01/24 07/01/24 22:59 06:59 14:59 Intake Total 720 540 240 Output Total 1 Balance 719 540 240 Intake: Oral 720 540 240 Output: Urine 1 Other: Voiding Method Toilet # Voids 1 Patient is awake, comfortable, no acute distress Examination of the heart S1 and S2 Examination of the lungs bilateral breath sounds are heard Abdomen is soft, mild tenderness in the upper abdomen Examination of lower extremities shows no significant edema SLD TEACHER exam grossly intact Results - Lab Results Most recent lab results Calcium 8.3 mg/dL (8.7-10.3) L 07/01/24 04:38 07/01/24 04:38 07/01/24 04:38 Assessment and Plan Assessment: 1. Hyponatremia, hypovolemic and improved significantly with normal saline. Patient is hypotensive and does have a previous history of hyponatremia. I will add sodium chloride tabs down the road. DC normal saline 2. Hiatal hernia scheduled for repair on 07/03/2024 3. History of anxiety and depression maintained on Celexa Plan: Agree with decreasing saline Repeat sodium this afternoon and if serum sodium continues to increase the saline will be discontinued. Repeat labs in a.m. Encourage increase oral intake Patient will probably benefit from sodium chloride tabs upon discharge as long as blood pressure is not elevated. Thank you for the consultation. We will continue to follow the patient with you during her hospitalization.
--- NOTE | 2024-07-01 14:25 | P.PN ---
Subjective Progress Note Date: 07/01/24 SURGICAL PROGRESS NOTE CHIEF COMPLAINT: Hiatal hernia HISTORY OF PRESENT ILLNESS: Patient's hiatal hernia repair with fundoplication was canceled due to hyponatremia yesterday. Her hyponatremia is improving sodium is now 131. She has been seen by nephrology. Patient eating a small amount of the full liquids. But she does report pain after eating. She did have some nausea. He she is having flatus. Afebrile. WBC 6.82 Hgb 10.2 platelets 273 sodium 131 potassium 4.3 PHYSICAL EXAM: VITAL SIGNS: Reviewed. GENERAL: Well-developed in no acute distress. HEENT: No sclera icterus. Extraocular movements grossly intact. Moist buccal mucosa. Head is atraumatic, normocephalic. ABDOMEN: Soft. Nondistended. Nontender. NEUROLOGIC: Alert and oriented. Cranial nerves II through XII grossly intact. ASSESSMENT: 1. Hiatal hernia 2. Hyponatremia PLAN: -Robotic hiatal hernia repair tomorrow with Dr. Styles -N.p.o. after midnight -Recommend no straws or carbonated beverages with full liquid diet today Physician Supervisor Sandblaster note has been reviewed by physician. Signing provider agrees with the documented findings, assessment, and plan of care. Attestation Patient seen and examined at bedside. Sodium appears to be improving. She is scheduled for hiatal hernia repair with fundoplication tomorrow secondary to improvement of the hyponatremia. N.p.o. after midnight. Shannon Jain DO Objective - Vital Signs Vital signs: Vital Signs Temp 97.9 F 07/01/24 12:29 Pulse 77 07/01/24 12:29 Resp 19 07/01/24 12:29 BP 104/64 07/01/24 12:29 Pulse Ox 100 07/01/24 12:29 FiO2 Intake & Output 06/30/24 07/01/24 07/01/24 18:59 06:59 18:59 Intake Total 770 540 240 Output Total 1 Balance 769 540 240 Weight 42 kg Intake: IV 50 Oral 720 540 240 Output: Urine 1 Other: Voiding Method Toilet # Voids 1 3 - Labs CBC & Chem 7: 07/01/24 04:38 07/01/24 04:38 Labs: Abnormal Lab Results - Last 24 Hours (Table) 06/30/24 06/30/24 06/30/24 Range/Units 17:30 17:30 23:45 RBC (4.10-5.20) X 10*6/uL Hgb (12.0-15.0) g/dL Hct (37.2-46.3) % MPV (9.5-12.2) FL Eosinophils # (0.04-0.35) X 10*3/uL Sodium 126 L (137-145) mmol/L Chloride 97 L (98-107) mmol/L Carbon Dioxide (21.6-31.8) mmol/L Glucose 129 H (74-99) mg/dL Calcium (8.7-10.3) mg/dL Urine Osmolality 234 L (400-1100) mOsm/kg Ur Random Sodium <20 L (40-220) mmol/L 07/01/24 07/01/24 Range/Units 04:38 04:38 RBC 3.24 L (4.10-5.20) X 10*6/uL Hgb 10.2 L (12.0-15.0) g/dL Hct 30.5 L (37.2-46.3) % MPV 9.1 L (9.5-12.2) FL Eosinophils # 0 L (0.04-0.35) X 10*3/uL Sodium 131 L (137-145) mmol/L Chloride (98-107) mmol/L Carbon Dioxide 20.9 L (21.6-31.8) mmol/L Glucose (74-99) mg/dL Calcium 8.3 L (8.7-10.3) mg/dL Urine Osmolality (400-1100) mOsm/kg Ur Random Sodium (40-220) mmol/L
[2024-07-01 14:59] LABS: Reticulocyte % 1.09 % (0.10-1.80)
[2024-07-01 16:03] VITALS: BMI 16.9
[2024-07-02 06:19] LABS: HCT 35.8 % (34.0-46.0); HGB 11.4 gm/dL (11.4-16.0); MCH 30.9 pg (25.0-35.0); MCHC 31.7 g/dL (31.0-37.0); MCV 97.2 fL (80.0-100.0); Mean Platelet Volume 7.6; Platelet Count 314 k/uL (150-450); RBC 3.68 m/uL (3.80-5.40); WBC 6.2 k/uL (3.8-10.6)
[2024-07-02 07:01] LABS: African American GFR (CKD) >90 (>60 ml/min/1.73 sqM); Anion Gap 4 mmol/L; Blood Urea Nitrogen 10 mg/dL (7-17); Calcium 8.7 mg/dL (8.4-10.2); Carbon Dioxide 25 mmol/L (22-30); Chloride 104 mmol/L (98-107); Glucose 78 mg/dL (74-99); Non-African American GFR(CKD) 90 (>60 ml/min/1.73 sqM); Potassium 4.3 mmol/L (3.5-5.1); Sodium 133 mmol/L (137-145)
[2024-07-02] MEDS: IV FLUID CONTINUATION 1,000 ML IV ONE (07:33)
[2024-07-02] MEDS: DEXAMETHASONE SOD PHOSPHATE 4 MG/ML 1 ML VIAL IVP STA (08:12)
[2024-07-02] MEDS: HEPARIN SODIUM,PORCINE 5,000 UNIT/ML 1 ML VIAL SQ STA (09:02)
[2024-07-02] MEDS ORDERED: fentaNYL (PF) 50 MCG/ML 2 ML AMP ONE (09:03)
[2024-07-02] MEDS ORDERED: LIDOCAINE 1% INJ 10MG/ML (20 ML MDV) ONE (09:03)
[2024-07-02] MEDS ORDERED: SUCCINYLCHOLINE CHLORIDE 200 MG/10 ML VIAL IV ONE (09:03)
[2024-07-02] MEDS ORDERED: ROCURONIUM 10 MG/ML (5 ML VIAL) IV ONE (09:03)
[2024-07-02] MEDS ORDERED: MIDAZOLAM 2 MG/2 ML VIAL ONE (09:03)
[2024-07-02] MEDS ORDERED: HYDROmorphone (PF) 1 MG/ML ONE (09:03)
[2024-07-02] MEDS ORDERED: ePHEDrine 50 MG/ML 1 ML VIAL ONE (09:03)
[2024-07-02] MEDS ORDERED: PROPOFOL 10 MG/ML 20 ML VIAL IV ONE (09:03)
[2024-07-02] MEDS ORDERED: NEOSTIGMINE 1 MG/ML 10 ML VIAL ONE (09:03)
[2024-07-02] MEDS ORDERED: PHENYLEPHRINE 10 MG/ML VIAL ONE (09:03)
[2024-07-02] MEDS ORDERED: GLYCOPYRROLATE 0.2 MG/ML 2 ML VIAL ONE (09:03)
[2024-07-02] MEDS: SODIUM CHLORIDE 0.9% 50 ML with ceFAZolin 2,000 MG IV ONE (09:05)
[2024-07-02] MEDS: LIDOCAINE 1%-EPI 1:100,000 20 ML VIAL SQ ONE ×2 (09:26→11:20)
[2024-07-02] MEDS: LACTATED RINGERS 1,000 ML IV ONE (10:58)
--- NOTE | 2024-07-02 11:31 | P.PN ---
Subjective Progress Note Date: 07/02/24 74-year-old female with PMH of asthma, GERD, hyperlipidemia, hypertension, hiatal hernia, who was scheduled to undergo surgery to repair hiatal hernia today, however surgery was canceled due to her hyponatremia. She has her surgery tentatively rescheduled for 07/03/24. Patient reports absence of fever, chills, weight loss, chest pain, palpitations, diaphoresis, dyspnea, cough, nausea, vomiting, constipation, diarrhea, abdominal pain, weakness, myalgia, dizziness, headache, and dysuria. Internal medicine was consulted for medical management. 07/01 - She is seen at bedside this morning. No acute events overnight, no acute complaints this morning. Recheck sodium at midnight showed an increase to 126 from 124. Sodium this morning shown to be 131. 07/02 - She is seen and examined at bedside this morning. No acute events overnight. Her sodium had corrected nicely up to 131, she was considered medically optimized for surgery. Plan is for her to undergo surgery this morning. REVIEW OF SYSTEMS: Pertinent positives and negatives noted in HPI. Physical Exam: General: nontoxic, no distress, appears at stated age Derm: warm, dry, intact Head: atraumatic, normocephalic, symmetric Eyes: EOMI, anicteric sclera Mouth: no lip lesion, mucus membranes moist Cardiovascular: S1 S2 reg, no murmur, rubs, or gallops Lungs: CTA bilateral, no rales, no accessory muscle use Abdominal: soft, non-tender to palpataion, no appreciable organomegaly Extremities: no gross muscle atrophy, no edema, no contractures Neuro: Alert, Oriented, CNII-XII grossly intact, gait normal Psych: well appearing, appropriate affect Data Received Today: Labs: WBC 6.2, hemoglobin 11.4, hematocrit 35.8, platelet 314; sodium 133, potassium 4.3, BUN 10, creatinine 0.62 Imagining: No new imaging to Assessment and plan 74-year-old female with PMH of asthma, GERD, hyperlipidemia, hypertension, hiatal hernia, who was scheduled to undergo surgery to repair hiatal hernia today, however surgery was canceled due to her hyponatremia. She has her surgery tentatively rescheduled for 07/03/24. #Chronic, likely hypovolemic, hyponatremia -Nephrology consulted -Switch to NS at 75 cc/h -Monitor BMP closely -Urine osmolality 234,urine sodium ordered <20 -Serum osmolality 271 #Constipation -Initiate MiraLAX daily #Normocytic anemia -Continue monitor CBC -Reticulocyte count 1.09 Chronic Medical Conditions #Essential hypertension -Resume home Lisinopril 5 mg daily #Hyperlidemia -Resume home Atorvastatin 40 mg daily #GERD -Resume home pantoprazole 40mg daily #Anxiety/Depression -Resume home Celexa 40 mg daily #Hiatal hernia repair -Surgery tentatively scheduled for 07/03/2024 -Pain management and DVT prophylaxis per primary surgical team NSQIP risk assessment: -Risk of any complication: 17.8% -Cardiac application: 1.0% -: 2.3% -Patient medically optimized for surgery DVT ppx: SCDs Code status: Full code F: NS at 75 cc/h E: Replete as needed N: N.p.o. for surgery A: Ambulatory at baseline Anticipated discharge place: Pending clinical course Anticipated discharge time: Pending clinical course Dictation was produced using [employer] dictation software. please excuse any grammatical, word or spelling errors. Hermes Markham MD PGY-1 IM I have seen and evaluated the patient today. Discussed with the resident and agree with the residents finding and plan as documented in the resident's note. Changes highlighted in blue font. Objective - Vital Signs Vital signs: Vital Signs Temp 98 F 07/02/24 01:51 Pulse 79 07/02/24 01:51 Resp 16 07/02/24 01:51 BP 121/73 07/02/24 01:51 Pulse Ox 98 07/02/24 01:51 FiO2 Intake & Output 07/01/24 07/02/24 07/02/24 18:59 06:59 18:59 Intake Total 600 Balance 600 Weight 42 kg Intake: Oral 600 Other: Voiding Method Toilet # Voids 2 2 - Labs CBC & Chem 7: 07/02/24 05:39 07/02/24 05:39 Labs: Abnormal Lab Results - Last 24 Hours (Table) 07/01/24 07/01/24 07/01/24 Range/Units 04:38 04:38 04:38 RBC 3.24 L (4.10-5.20) X 10*6/uL Hgb 10.2 L (12.0-15.0) g/dL Hct 30.5 L (37.2-46.3) % MPV 9.1 L (9.5-12.2) FL Eosinophils # 0 L (0.04-0.35) X 10*3/uL Sodium 131 L (135-145) mmol/L Carbon Dioxide 20.9 L (21.6-31.8) mmol/L Osmolality 271 L (275-295) mOsm/kg Calcium 8.3 L (8.7-10.3) mg/dL 07/01/24 07/02/24 07/02/24 Range/Units 17:02 05:39 05:39 RBC 3.68 L (4.10-5.20) X 10*6/uL Hgb (12.0-15.0) g/dL Hct (37.2-46.3) % MPV (9.5-12.2) FL Eosinophils # (0.04-0.35) X 10*3/uL Sodium 132 L 133 L (135-145) mmol/L Carbon Dioxide (21.6-31.8) mmol/L Osmolality (275-295) mOsm/kg Calcium (8.7-10.3) mg/dL
[2024-07-02] MEDS: HYDROmorphone 0.5 MG/0.5 ML SYRINGE IVP PRN ×2 (12:03→12:55)
--- NOTE | 2024-07-02 13:39 | P.OP ---
Date of Procedure: 07/02/24 Preoperative Diagnosis: Paraesophageal Hernia Postoperative Diagnosis: Paraesophageal Hernia Procedure(s) Performed: 1. Robotic Hiatal Hernia Repair with Mesh 2. Robotic JOAQUIN Fundoplication Anesthesia: GEORGINA Surgeon: Lincoln Styles Estimated Blood Loss (ml): 50 Pathology: none sent Condition: stable Disposition: PACU Description of Procedure: After informed consent was obtained detailing the risks of infection, bleeding, esophageal perforation and , the patient was brought to the operative suite and placed supine on the operating room table. General endotracheal anesthesia was induced without incident. The patient was then placed in supine position taking great care to pad all extremities. SCDs were placed as prophylaxis against deep venous thrombosis. Antibiotics were given for prophylaxis against surgical infection. A 42-Pashto bougie was placed in the proximal esophagus by Anesthesia, above the cardioesophageal junction. A 2 cm midline incision was made at the junction of the upper two-thirds and lower one-third between the umbilicus and the xiphoid process. A 1-2 cm incision was then made in the fascia gaining entry into the abdominal cavity without incident. Two sutures of 0 Vicryl were then placed superiorly and inferiorly in the fascia, and then tied to the special 12 mm Emery trocar fitted with a funnel-shaped adaptor in order to occlude the fascial opening. Pneumoperitoneum was then established using carbon dioxide insufflation to a steady state of pressure of 15 mmHg. A 30-degree laparoscope was inserted through this port and used to guide the remaining trocars. The remaining trocars were then placed into the abdomen taking care to make the incisions along Freddy's line. A total of 4 other 8 mm trocars were placed. Under direct vision 1 was inserted in the right upper quadrant at the midclavicular line, at a right supraumbilical position; another at the left upper quadrant at the midclavicular line, at a left supraumbilical position; 1 under the right costal margin in the anterior axillary line; and another laterally under the left costal margin on the anterior axillary line. All of the trocars were placed without difficulty. The patient was then placed in reverse Trendelenburg position. The robot was then docked and the rest of the procedure was performed from the console The triangular ligament was taken down sharply, and the left lobe of the liver was retracted superolaterally using a fan retractor placed through the right lateral cannula. The gastrohepatic ligament was then identified and incised in an avascular plane. The dissection was carried anteromedially onto the phrenoesophageal membrane. The phrenoesophageal membrane was divided on the anterior aspect of the hiatal orifice. This incision was extended to the right to allow identification of the right ilene. Then along the inner side of the ilene, the right esophageal wall was freed by dissecting the cleavage plane. The liberation of the posterior aspect of the esophagus was started by extending the dissection the length of the right diaphragmatic ilene. The pars flaccida of the lesser omentum was opened, preserving the hepatic branches of the vagus nerve. This allowed free access to the crura, left and right, and the right posterior aspect of the esophagus, and the posterior vagus nerve. Attention was next turned to the left anterolateral aspect of the esophagus. At its left border, the left ilene was identified. The dissection plane between it and the left aspect of the esophagus was freed. The gastrophrenic ligament was incised, beginning the mobilization of the gastric pouch. By dissecting the intramediastinal portion of the esophagus, we elongated the intra-abdominal segment of the esophagus and reduced the hiatal hernia. The next step consisted of mobilization of the gastric pouch. This required ligation and division of the gastrosplenic ligament and several short gastric vessels using the harmonic scalpel. This dissection started on the stomach at the point where the vessels of the greater curvature turned towards the spleen, away from the gastroepiploic arcade. The esophagus was lifted by a Brea inserted through the left upper quadrant port. Careful dissection of the mesoesophagus and the left ilene revealed a cleavage plane between the ilene and the posterior gastric wall. Confirmation of having opened the correct plane was obtained by visualizing the spleen behind the esophagus. A one-half inch Shay drain was inserted around the esophagus and sewn to itself in order to facilitate retraction of the distal esophagus. The retroesophageal channel was enlarged to allow easy passage of the antireflux valve. The 42-Pashto bougie was then carefully lowered into the proximal stomach, and the hiatal orifice was repaired. A #1 V-Lock Suture was used to close diaphragmatic crura to close the orifice. An enform GORE mesh was then placed over the crura and sutured in place with #2-0 Ethibond Suture. The last part of the operation consisted of the JOAQUIN Fundoplication. The angle of HIS was closed with #2-0 Silk Suture. The rest of the JOAQUIN Fundoplication was completed with #2-0 Silk Suture. This completed the procedure. The bougie was removed. The robot was undocked and the trochars removed. The skin incisions were closed with #4-0 Monocryl. Skin glue was applied. Having tolerated the procedure well, the patient was subsequently taken to the recovery room in good and stable condition.
[2024-07-03 08:36] LABS: BUN/Creat Ratio 14.14 Ratio (12.00-20.00); Blood Urea Nitrogen 9.9 mg/dL (9.0-27.0); Calcium 8.4 mg/dL (8.7-10.3); Carbon Dioxide 23.6 mmol/L (21.6-31.8); Chloride 106 mmol/L (96-109); Glucose 117 mg/dL (70-110); Potassium 4.5 mmol/L (3.5-5.5); Sodium 138 mmol/L (135-145)
[2024-07-03 08:43] LABS: Basophils # (A) 0.03 X 10*3/uL (0.00-0.10); Basophils % (A) 0.2 %; Eosinophils # (A) 0.46 X 10*3/uL (0.04-0.35); Eosinophils % (A) 3.6 %; HCT 29.7 % (37.2-46.3); HGB 9.4 g/dL (12.0-15.0); Lymphocytes # (A) 1.28 X 10*3/uL (0.90-5.00); Lymphocytes % (A) 10.1 %; MCH 31.5 pg (27.0-32.0); MCHC 31.6 g/dL (32.0-37.0); MCV 99.7 FL (80.0-97.0); Mean Platelet Volume 9.6 FL (9.5-12.2); Monocytes # (A) 1.11 X 10*3/uL (0.20-1.00); Monocytes % (A) 8.7 %; NRBC Per 100 WBC 0 X 10*3/uL (0.00-0.01); Neutrophils # (A) 9.75 X 10*3/uL (1.80-7.70); Neutrophils % (A) 76.9 %; Platelet Count 263 X 10*3/uL (140-440); RBC 2.98 X 10*6/uL (4.10-5.20); RDW 13.3 % (11.5-14.5); WBC 12.69 X 10*3/uL (4.50-10.00)
[2024-07-03] MEDS: HYDROcodone/APAP 10-325MG 1 EACH TAB PO PRN (08:57)
--- NOTE | 2024-07-03 11:11 | P.PN ---
Subjective Progress Note Date: 07/03/24 74-year-old female with PMH of asthma, GERD, hyperlipidemia, hypertension, hiatal hernia, who was scheduled to undergo surgery to repair hiatal hernia today, however surgery was canceled due to her hyponatremia. She has her surgery tentatively rescheduled for 07/03/24. Patient reports absence of fever, chills, weight loss, chest pain, palpitations, diaphoresis, dyspnea, cough, nausea, vomiting, constipation, diarrhea, abdominal pain, weakness, myalgia, dizziness, headache, and dysuria. Internal medicine was consulted for medical management. 07/01 - She is seen at bedside this morning. No acute events overnight, no acute complaints this morning. Recheck sodium at midnight showed an increase to 126 from 124. Sodium this morning shown to be 131. 07/02 - She is seen and examined at bedside this morning. No acute events overnight. Her sodium had corrected nicely up to 131, she was considered medically optimized for surgery. Plan is for her to undergo surgery this morning. 07/03 - She is seen and examined at bedside this morning. No acute events overnight. She underwent surgical repair of her hiatal hernia yesterday, without any complications. She is endorsing normal postsurgical pain/discomfort today. REVIEW OF SYSTEMS: Pertinent positives and negatives noted in HPI. Physical Exam: General: nontoxic, no distress, appears at stated age Derm: warm, dry, intact Head: atraumatic, normocephalic, symmetric Eyes: EOMI, anicteric sclera Mouth: no lip lesion, mucus membranes moist Cardiovascular: S1 S2 reg, no murmur, rubs, or gallops Lungs: CTA bilateral, no rales, no accessory muscle use Abdominal: soft, non-tender to palpataion, no appreciable organomegaly Extremities: no gross muscle atrophy, no edema, no contractures Neuro: Alert, Oriented, CNII-XII grossly intact, gait normal Psych: well appearing, appropriate affect Data Received Today: Labs: WBC 6.2, hemoglobin 11.4, hematocrit 35.8, platelet 314; sodium 133, potassium 4.3, BUN 10, creatinine 0.62 Imagining: No new imaging today. Assessment and plan 74-year-old female with PMH of asthma, GERD, hyperlipidemia, hypertension, hiatal hernia, who was scheduled to undergo surgery to repair hiatal hernia today, however surgery was canceled due to her hyponatremia. She has her surgery tentatively rescheduled for 07/03/24. #Hypovolemic, hyponatremia -Nephrology consulted -Switch to NS at 75 cc/h -Monitor BMP closely -Urine osmolality 234,urine sodium ordered <20 -Serum osmolality 271 #Constipation -Initiate MiraLAX daily #Normocytic anemia -Continue monitor CBC -Reticulocyte count 1.09 Chronic Medical Conditions #Essential hypertension -Resume home Lisinopril 5 mg daily #Hyperlidemia -Resume home Atorvastatin 40 mg daily #GERD -Resume home pantoprazole 40mg daily #Anxiety/Depression -Resume home Celexa 40 mg daily #Hiatal hernia repair -Surgery completed on 07/02 -Pain management and DVT prophylaxis per primary surgical team - Encourage use of incentive spirometer [facility] risk assessment: -Risk of any complication: 17.8% -Cardiac application: 1.0% -: 2.3% -Patient medically optimized for surgery She is medically optimized for discharge at this time. Will continue to follow for the duration of her stay. Thank you very much for this consult. DVT ppx: SCDs Code status: Full code F: NS at 75 cc/h E: Replete as needed N: N.p.o. for surgery A: Ambulatory at baseline Anticipated discharge place: Home Anticipated discharge time: Pending clinical course Dictation was produced using [employer] dictation software. please excuse any grammatical, word or spelling errors. Hermes Markham MD PGY-1 IM I saw and evaluated the patient during the king and critical portions of this encounter, and discussed the case in detail with the resident author of this note, I agree with the Assessment and Plan, and my changes, if any, are highl ighted in blue. Objective - Vital Signs Vital signs: Vital Signs Temp 97.7 F 07/03/24 07:05 Pulse 69 07/03/24 07:05 Resp 16 07/03/24 07:05 BP 145/87 07/03/24 07:05 Pulse Ox 98 07/03/24 07:05 FiO2 Intake & Output 07/02/24 07/03/24 07/03/24 18:59 06:59 18:59 Intake Total 1200 Output Total 75 700 Balance 1125 -700 Intake: IV 1050 Oral 150 Output: Urine 700 Straight 700 Estimated Blood Loss 75 Other: Voiding Method Toilet # Voids 0 - Labs CBC & Chem 7: 07/03/24 04:49 07/03/24 04:49
--- NOTE | 2024-07-03 13:27 | P.PN ---
Subjective Progress Note Date: 07/03/24 SURGICAL PROGRESS NOTE CHIEF COMPLAINT: Hiatal hernia HISTORY OF PRESENT ILLNESS: Patient is postop day #1 status post robotic hiatal hernia repair with mesh and robotic MACI fundoplication. Patient is sitting up in bedside chair. She is tolerating her clear liquid diet. Denies any difficulty with swallowing. Denies any nausea or vomiting. Her pain is controlled. Afebrile. WBC 12.69 Hgb 9.4 platelets 263 sodium 138 PHYSICAL EXAM: VITAL SIGNS: Reviewed. GENERAL: Well-developed in no acute distress. ABDOMEN: Soft. Nondistended. Nontender. NEUROLOGIC: Alert and oriented. Cranial nerves II through XII grossly intact. ASSESSMENT: 1. Hiatal hernia 2. Hyponatremia improved 3. Leukocytosis may be reactive PLAN: -Continue clear liquid diet with no straws or carbonated beverages. Patient to be on a clear liquid diet for 1 week after surgery -Continue omeprazole 20 mg twice daily for 3 months -manager wireless working on ECF placement. Anticipate discharge on Saturday -Encourage patient to increase activity level -Incentive spirometer ordered -Continue pain management -GI prophylaxis Protonix DVT prophylaxis subcu heparin Physician Solar Applications Development Engineer note has been reviewed by physician. Signing provider agrees with the documented findings, assessment, and plan of care. Attestation Patient seen and examined at bedside on 07/03/2024. Status post robotic hiatal hernia repair with mesh and robotic maci fundoplication. Appears to be doing well. Sodium 138. On clear liquid diet and tolerating this. Working with physical therapy. Omeprazole 20 mg twice daily for 3 months. Complaining of some pain that is being treated. Shannon Jain, DO Objective - Vital Signs Vital signs: Vital Signs Temp 97.4 F L 07/03/24 12:17 Pulse 89 07/03/24 12:17 Resp 16 07/03/24 12:17 BP 116/93 07/03/24 12:17 Pulse Ox 93 L 07/03/24 12:17 FiO2 Intake & Output 07/02/24 07/03/24 07/03/24 18:59 06:59 18:59 Intake Total 1200 Output Total 75 700 375 Balance 1125 -700 -375 Intake: IV 1050 Oral 150 Output: Urine 700 Straight 700 Post Void Residual 375 Estimated Blood Loss 75 Other: Voiding Method Toilet Bedside Commode # Voids 0 1 - Labs CBC & Chem 7: 07/04/24 04:43 07/04/24 04:43 Labs: Abnormal Lab Results - Last 24 Hours (Table) 07/03/24 07/03/24 Range/Units 04:49 04:49 WBC 12.69 H (4.50-10.00) X 10*3/uL RBC 2.98 L (4.10-5.20) X 10*6/uL Hgb 9.4 L (12.0-15.0) g/dL Hct 29.7 L (37.2-46.3) % MCV 99.7 H (80.0-97.0) FL MCHC 31.6 L (32.0-37.0) g/dL Immature Gran # 0.06 H (0.00-0.04) X 10*3/uL Neutrophils # 9.75 H (1.80-7.70) X 10*3/uL Monocytes # 1.11 H (0.20-1.00) X 10*3/uL Eosinophils # 0.46 H (0.04-0.35) X 10*3/uL Glucose 117 H (70-110) mg/dL Calcium 8.4 L (8.7-10.3) mg/dL
--- NOTE | 2024-07-03 16:24 | P.PN ---
Subjective Patient is seen for follow-up for hyponatremia, hypovolemic and associated with decreased oral intake. Currently improved with normal saline. Status post repair of hiatal hernia on 07/02/2024 No significant complaints today except for abdominal discomfort. Trying to increase oral intake Objective - Vital Signs Vital signs: Vital Signs Temp 97.4 F L 07/03/24 12:17 Pulse 89 07/03/24 12:17 Resp 16 07/03/24 12:17 BP 116/93 07/03/24 12:17 Pulse Ox 93 L 07/03/24 12:17 FiO2 Intake & Output 07/02/24 07/03/24 07/03/24 18:59 06:59 18:59 Intake Total 1200 Output Total 75 700 1175 Balance 1125 -700 -1175 Intake: IV 1050 Oral 150 Output: Urine 700 800 Straight 700 400 Post Void Residual 375 Estimated Blood Loss 75 Other: Voiding Method Toilet Bedside Commode # Voids 0 1 - Exam Patient is awake, comfortable, no acute distress Examination of the heart S1 and S2 Examination of the lungs decreased breath sounds at the bases Abdomen is soft, tender from surgery Examination of lower extremity shows no evidence of edema CARDIOVASCULAR RN exam grossly intact - Labs CBC & Chem 7: 07/03/24 04:49 07/03/24 04:49 Labs: Abnormal Lab Results - Last 24 Hours (Table) 07/03/24 07/03/24 Range/Units 04:49 04:49 WBC 12.69 H (4.50-10.00) X 10*3/uL RBC 2.98 L (4.10-5.20) X 10*6/uL Hgb 9.4 L (12.0-15.0) g/dL Hct 29.7 L (37.2-46.3) % MCV 99.7 H (80.0-97.0) FL MCHC 31.6 L (32.0-37.0) g/dL Immature Gran # 0.06 H (0.00-0.04) X 10*3/uL Neutrophils # 9.75 H (1.80-7.70) X 10*3/uL Monocytes # 1.11 H (0.20-1.00) X 10*3/uL Eosinophils # 0.46 H (0.04-0.35) X 10*3/uL Glucose 117 H (70-110) mg/dL Calcium 8.4 L (8.7-10.3) mg/dL Assessment and Plan Assessment: 1. Hyponatremia, hypovolemic and improved significantly with normal saline. Patient is hypotensive and does have a previous history of hyponatremia. I will add sodium chloride tabs down the road. 2. Hiatal hernia scheduled for repair on 07/03/2024 3. History of anxiety and depression maintained on Celexa Plan: Continue with normal saline until oral intake is increased Patient will probably benefit from sodium chloride tabs upon discharge as long as blood pressure is not elevated.
[2024-07-03] MEDS: HEPARIN SODIUM,PORCINE 5,000 UNIT/ML 1 ML VIAL SQ SCH (20:56)
[2024-07-04 05:10] LABS: African American GFR (CKD) >90 (>60 ml/min/1.73 sqM); Anion Gap 3 mmol/L; Blood Urea Nitrogen 6 mg/dL (7-17); Calcium 8.1 mg/dL (8.4-10.2); Carbon Dioxide 27 mmol/L (22-30); Chloride 102 mmol/L (98-107); Glucose 93 mg/dL (74-99); Non-African American GFR(CKD) >90 (>60 ml/min/1.73 sqM); Sodium 132 mmol/L (137-145)
--- NOTE | 2024-07-04 08:38 | P.PN ---
Subjective Patient is seen in follow-up for hyponatremia. Sodium level 132 today. On IV fluids. Oral intake fair. Has been requiring straight catheterizations although bladder scans are below 300. Vital signs are stable. General: No acute distress. HEENT: Head exam is unremarkable. On nasal cannula. LUNGS: No audible rhonchi or wheezes. HEART: Rate and Rhythm are regular. ABDOMEN: Mild generalized tenderness. EXTREMITITES: No edema. Objective - Vital Signs Vital signs: Vital Signs Temp 97.6 F 07/04/24 06:55 Pulse 89 07/04/24 06:55 Resp 16 07/04/24 06:55 BP 131/76 07/04/24 06:55 Pulse Ox 92 L 07/04/24 06:55 FiO2 Intake & Output 07/03/24 07/04/24 07/04/24 18:59 06:59 18:59 Intake Total 240 Output Total 1175 587 Balance -935 -047 Intake: Oral 240 Output: Urine 800 255 Straight 400 225 Post Void Residual 375 332 Other: Voiding Method Bedside Commode Bedside Commode # Voids 1 1 - Labs CBC & Chem 7: 07/03/24 04:49 07/04/24 04:43 Labs: Abnormal Lab Results - Last 24 Hours (Table) 07/03/24 07/03/24 07/04/24 Range/Units 04:49 04:49 04:43 WBC 12.69 H (4.50-10.00) X 10*3/uL RBC 2.98 L (4.10-5.20) X 10*6/uL Hgb 9.4 L (12.0-15.0) g/dL Hct 29.7 L (37.2-46.3) % MCV 99.7 H (80.0-97.0) FL MCHC 31.6 L (32.0-37.0) g/dL Immature Gran # 0.06 H (0.00-0.04) X 10*3/uL Neutrophils # 9.75 H (1.80-7.70) X 10*3/uL Monocytes # 1.11 H (0.20-1.00) X 10*3/uL Eosinophils # 0.46 H (0.04-0.35) X 10*3/uL Sodium 132 L (137-145) mmol/L BUN 6 L (7-17) mg/dL Glucose 117 H (70-110) mg/dL Calcium 8.4 L 8.1 L (8.7-10.3) mg/dL Assessment and Plan Plan: Assessment: 1. Hypovolemic hyponatremia improved with normal saline. Sodium level went from 138-132 today. She remains on IV fluids. 2. 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 3. History of anxiety and depression maintained on Celexa. Plan: Hep-Lock IV fluids. Add sodium chloride tab once daily. Encouraged oral intake. Repeat labs in the morning. Continue to monitor bladder scans. Insert Nation catheter if greater than 300 cc or more on bladder scan.
[2024-07-04] MEDS: SODIUM CHLORIDE TAB 1 GM TAB PO SCH (09:20)
[2024-07-04 09:30] LABS: Basophils # (A) 0.06 X 10*3/uL (0.00-0.10); Basophils % (A) 0.7 %; Eosinophils # (A) 0.11 X 10*3/uL (0.04-0.35); Eosinophils % (A) 1.3 %; HCT 27.3 % (37.2-46.3); HGB 8.7 g/dL (12.0-15.0); Lymphocytes # (A) 1.59 X 10*3/uL (0.90-5.00); Lymphocytes % (A) 18.9 %; MCH 31.1 pg (27.0-32.0); MCHC 31.9 g/dL (32.0-37.0); MCV 97.5 FL (80.0-97.0); Mean Platelet Volume 9.3 FL (9.5-12.2); Monocytes # (A) 0.63 X 10*3/uL (0.20-1.00); Monocytes % (A) 7.5 %; NRBC Per 100 WBC 0 X 10*3/uL (0.00-0.01); Neutrophils % (A) 71.2 %; Platelet Count 245 X 10*3/uL (140-440); WBC 8.42 X 10*3/uL (4.50-10.00)
--- NOTE | 2024-07-04 11:46 | P.PN ---
Subjective Progress Note Date: 07/04/24 Patient seen and examined at bedside. No acute events. Tolerating liquids. Objective - Vital Signs Vital signs: Vital Signs Temp 97.6 F 07/04/24 06:55 Pulse 89 07/04/24 08:00 Resp 16 07/04/24 08:00 BP 131/76 07/04/24 06:55 Pulse Ox 92 L 07/04/24 06:55 FiO2 Intake & Output 07/03/24 07/04/24 07/04/24 18:59 06:59 18:59 Intake Total 240 Output Total 1175 587 Balance -935 -587 Intake: Oral 240 Output: Urine 800 255 Straight 400 225 Post Void Residual 375 332 Other: Voiding Method Bedside Commode Bedside Commode Bedside Commode # Voids 1 1 - Constitutional General appearance: Present: cooperative, no acute distress - Gastrointestinal Gastrointestinal Comment(s): Soft, nontender, nondistended, no rebound or guarding, incision sites are clean, dry and intact - Labs CBC & Chem 7: 07/04/24 04:43 07/04/24 04:43 Labs: Abnormal Lab Results - Last 24 Hours (Table) 07/04/24 07/04/24 Range/Units 04:43 04:43 RBC 2.80 L (4.10-5.20) X 10*6/uL Hgb 8.7 L (12.0-15.0) g/dL Hct 27.3 L (37.2-46.3) % MCV 97.5 H (80.0-97.0) FL MCHC 31.9 L (32.0-37.0) g/dL MPV 9.3 L (9.5-12.2) FL Sodium 132 L (137-145) mmol/L BUN 6 L (7-17) mg/dL Calcium 8.1 L (8.4-10.2) mg/dL Assessment and Plan Plan: Postoperative day #2, robotic hiatal hernia repair. Continue on clear liquid diet, patient is tolerating this. Continue pain control. Leukocytosis has resolved. Continue to increase activity. Case management on board for placement. Shnanon Jain DO
[2024-07-04] MEDS: PSEUDOEPHEDRINE 30 MG TAB PO PRN (13:00)
--- NOTE | 2024-07-04 13:40 | P.PN ---
Subjective Progress Note Date: 07/04/24 74-year-old female with PMH of asthma, GERD, hyperlipidemia, hypertension, hiatal hernia, who was scheduled to undergo surgery to repair hiatal hernia today, however surgery was canceled due to her hyponatremia. She has her surgery tentatively rescheduled for 07/03/24. Patient reports absence of fever, chills, weight loss, chest pain, palpitations, diaphoresis, dyspnea, cough, nausea, vomiting, constipation, diarrhea, abdominal pain, weakness, myalgia, dizziness, headache, and dysuria. Internal medicine was consulted for medical management. 07/01 - She is seen at bedside this morning. No acute events overnight, no acute complaints this morning. Recheck sodium at midnight showed an increase to 126 from 124. Sodium this morning shown to be 131. 07/02 - She is seen and examined at bedside this morning. No acute events overnight. Her sodium had corrected nicely up to 131, she was considered medically optimized for surgery. Plan is for her to undergo surgery this morning. 07/03 - She is seen and examined at bedside this morning. No acute events overnight. She underwent surgical repair of her hiatal hernia yesterday, without any complications. She is endorsing normal postsurgical pain/discomfort today. 07/04 - She seen and examined at bedside this morning. No acute events overnight. She is endorsing normal postsurgical pain/discomfort today, however notes improved from yesterday. REVIEW OF SYSTEMS: Pertinent positives and negatives noted in HPI. Physical Exam: General: nontoxic, no distress, appears at stated age Derm: warm, dry, intact Head: atraumatic, normocephalic, symmetric Eyes: EOMI, anicteric sclera Mouth: no lip lesion, mucus membranes moist Cardiovascular: S1 S2 reg, no murmur, rubs, or gallops Lungs: CTA bilateral, no rales, no accessory muscle use Abdominal: soft, non-tender to palpataion, no appreciable organomegaly Extremities: no gross muscle atrophy, no edema, no contractures Neuro: Alert, Oriented, CNII-XII grossly intact, gait normal Psych: well appearing, appropriate affect Data Received Today: Labs: Sodium 132, potassium 4.0, BUN 6, creatinine 0.55, calcium 8.1 Imagining: No new imaging today. Assessment and plan 74-year-old female with PMH of asthma, GERD, hyperlipidemia, hypertension, hiatal hernia, who was scheduled to undergo surgery to repair hiatal hernia today, however surgery was canceled due to her hyponatremia. She had her surgery completed on 07/02/24. #Hypovolemic, hyponatremia -Nephrology consulted -Switch to NS at 75 cc/h -Monitor BMP closely -Urine osmolality 234, urine sodium ordered <20 -Serum osmolality 271 #Constipation -Initiate MiraLAX daily #Normocytic anemia -Continue monitor CBC -Reticulocyte count 1.09 #Nasal congestion -Initiated on Sudafed 30 mg p.o. every 6 hours as needed Chronic Medical Conditions #Essential hypertension -Resume home Lisinopril 5 mg daily #Hyperlidemia -Resume home Atorvastatin 40 mg daily #GERD -Resume home pantoprazole 40mg daily #Anxiety/Depression -Resume home Celexa 40 mg daily #Hiatal hernia repair -Surgery completed on 07/02 -Pain management and DVT prophylaxis per primary surgical team - Encourage use of incentive spirometer NSQIP risk assessment: -Risk of any complication: 17.8% -Cardiac application: 1.0% -: 2.3% -Patient medically optimized for surgery She is medically optimized for discharge at this time. Will continue to follow for the duration of her stay. Thank you very much for this consult. DVT ppx: SCDs Code status: Full code F: NS at 75 cc/h E: Replete as needed N: N.p.o. for surgery A: Ambulatory at baseline Anticipated discharge place: Home Anticipated discharge time: Pending clinical course Dictation was produced using [employer] dictation software. please excuse any grammatical, word or spelling errors. Hermes Markham MD PGY-1 IM I saw and evaluated the patient during the ikng and critical portions of this encounter, and discussed the case in detail with the resident author of this note, I agree with the Assessment and Plan, and my changes, if any, are high lighted in blue. Objective - Vital Signs Vital signs: Vital Signs Temp 97.6 F 07/04/24 06:55 Pulse 89 07/04/24 06:55 Resp 16 07/04/24 06:55 BP 131/76 07/04/24 06:55 Pulse Ox 92 L 07/04/24 06:55 FiO2 Intake & Output 07/03/24 07/04/24 07/04/24 18:59 06:59 18:59 Intake Total 240 Output Total 1175 587 Balance -935 -587 Intake: Oral 240 Output: Urine 800 255 Straight 400 225 Post Void Residual 375 332 Other: Voiding Method Bedside Commode Bedside Commode # Voids 1 1 - Labs CBC & Chem 7: 07/04/24 04:43 07/04/24 04:43 Labs: Abnormal Lab Results - Last 24 Hours (Table) 07/03/24 07/03/24 07/04/24 Range/Units 04:49 04:49 04:43 WBC 12.69 H (4.50-10.00) X 10*3/uL RBC 2.98 L (4.10-5.20) X 10*6/uL Hgb 9.4 L (12.0-15.0) g/dL Hct 29.7 L (37.2-46.3) % MCV 99.7 H (80.0-97.0) FL MCHC 31.6 L (32.0-37.0) g/dL Immature Gran # 0.06 H (0.00-0.04) X 10*3/uL Neutrophils # 9.75 H (1.80-7.70) X 10*3/uL Monocytes # 1.11 H (0.20-1.00) X 10*3/uL Eosinophils # 0.46 H (0.04-0.35) X 10*3/uL Sodium 132 L (137-145) mmol/L BUN 6 L (7-17) mg/dL Glucose 117 H (70-110) mg/dL Calcium 8.4 L 8.1 L (8.7-10.3) mg/dL
[2024-07-05 05:38] LABS: HCT 28.3 % (34.0-46.0); MCH 31.3 pg (25.0-35.0); MCHC 32.7 g/dL (31.0-37.0); MCV 95.7 fL (80.0-100.0); Mean Platelet Volume 7.9; Platelet Count 290 k/uL (150-450); RBC 2.96 m/uL (3.80-5.40); RDW 12.9 % (11.5-15.5); WBC 11.4 k/uL (3.8-10.6)
[2024-07-05 06:12] LABS: HGB 9.3 gm/dL (11.4-16.0)
[2024-07-05 08:31] LABS: Influenza A Not Detected (Not Detectd); Influenza B Not Detected (Not Detectd); RSV Not Detected (Not Detectd)
--- NOTE | 2024-07-05 09:09 | P.PN ---
Subjective Progress Note Date: 07/05/24 Patient seen and examined at bedside. States that she is having some pain around incision sites. Having flatus and bowel movement. Requiring O2 overnight. Objective - Vital Signs Vital signs: Vital Signs Temp 97.4 F L 07/05/24 07:07 Pulse 99 07/05/24 08:00 Resp 16 07/05/24 08:00 BP 134/79 07/05/24 07:07 Pulse Ox 91 L 07/05/24 07:07 FiO2 Intake & Output 07/04/24 07/05/24 07/05/24 18:59 06:59 18:59 Intake Total 240 Output Total 275 Balance -35 Intake: Oral 240 Output: Urine 200 Post Void Residual 75 Other: Voiding Method Bedside Commode Bedside Commode Bedside Commode # Voids 1 1 - Constitutional General appearance: Present: cooperative, no acute distress - Respiratory Details: No difficulty with respiration, on nasal cannula - Gastrointestinal Gastrointestinal Comment(s): Soft, appropriate tenderness around incision sites, incisions appear well- healing, nondistended - Musculoskeletal Musculoskeletal: Present: generalized weakness - Labs CBC & Chem 7: 07/05/24 05:15 07/04/24 04:43 Labs: Abnormal Lab Results - Last 24 Hours (Table) 07/04/24 07/05/24 Range/Units 04:43 05:15 WBC 11.4 H (3.8-10.6) k/uL RBC 2.80 L 2.96 L (4.10-5.20) X 10*6/uL Hgb 8.7 L 9.3 L D (12.0-15.0) g/dL Hct 27.3 L 28.3 L (37.2-46.3) % MCV 97.5 H (80.0-97.0) FL MCHC 31.9 L (32.0-37.0) g/dL MPV 9.3 L (9.5-12.2) FL Assessment and Plan Plan: Postoperative day #3, robotic hiatal hernia repair. Continue on clear liquid diet, patient is tolerating this. Continue pain control. With finding of O2 requirement, we will plan for chest x-ray today. Patient did have influenza testing that is negative. Continue to increase activity. Continue incentive spirometry. Plan for placement when patient stable for discharge. Shannon Jain DO
--- NOTE | 2024-07-05 10:29 | XR ---
EXAMINATION TYPE: XR chest 1V DATE OF EXAM: 07/05/2024 9:59 AM COMPARISON: 05/19/2024 CLINICAL INDICATION: Female, 74 years old with history of SOB, TECHNIQUE: XR chest 1V view(s) obtained. FINDINGS: The heart size is normal. The pulmonary vasculature is normal. Bibasilar infiltrates are present. Small pleural effusions are present. Correlate for atelectasis and pneumonia. IMPRESSION: 1. Bibasilar infiltrates with small pleural effusions. Correlate for pneumonia or atelectasis. [facility], , 07/05/2024 10:27 AM
[2024-07-05 11:17] LABS: BUN/Creat Ratio 11.33 Ratio (12.00-20.00); Blood Urea Nitrogen 6.8 mg/dL (9.0-27.0); Carbon Dioxide 24.2 mmol/L (21.6-31.8); Chloride 102 mmol/L (96-109); Glucose 132 mg/dL (70-110); Magnesium 1.5 mg/dL (1.5-2.4); Potassium 4.4 mmol/L (3.5-5.5); Sodium 136 mmol/L (135-145)
--- NOTE | 2024-07-05 11:31 | P.PN ---
Subjective Patient is seen in follow-up for hyponatremia. Sodium level 136 today. Off IV fluids. Oral intake gradually improving. Has been voiding on her own. Vital signs are stable. General: No acute distress. HEENT: Head exam is unremarkable. On nasal cannula. LUNGS: No audible rhonchi or wheezes. HEART: Rate and Rhythm are regular. ABDOMEN: Mild generalized tenderness. EXTREMITITES: No edema. Objective - Vital Signs Vital signs: Vital Signs Temp 97.4 F L 07/05/24 07:07 Pulse 99 07/05/24 08:00 Resp 16 07/05/24 08:00 BP 134/79 07/05/24 07:07 Pulse Ox 91 L 07/05/24 07:07 FiO2 Intake & Output 07/04/24 07/05/24 07/05/24 18:59 06:59 18:59 Intake Total 240 Output Total 275 Balance -35 Intake: Oral 240 Output: Urine 200 Post Void Residual 75 Other: Voiding Method Bedside Commode Bedside Commode Bedside Commode # Voids 1 1 - Labs CBC & Chem 7: 07/05/24 05:15 07/05/24 05:15 Labs: Abnormal Lab Results - Last 24 Hours (Table) 07/05/24 07/05/24 Range/Units 05:15 05:15 WBC 11.4 H (3.8-10.6) k/uL RBC 2.96 L (3.80-5.40) m/uL Hgb 9.3 L D (11.4-16.0) gm/dL Hct 28.3 L (34.0-46.0) % BUN 6.8 L (9.0-27.0) mg/dL BUN/Creatinine Ratio 11.33 L (12.00-20.00) Ratio Glucose 132 H (70-110) mg/dL Calcium 8.0 L (8.7-10.3) mg/dL Assessment and Plan Plan: Assessment: 1. Hypovolemic hyponatremia improved with normal saline. Sodium level 136 today. Urine sodium less than 20 and urine osmolality 234. 2. 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 3. History of anxiety and depression maintained on Celexa. Plan: Maintain sodium chloride tab once daily. Encouraged oral intake. Repeat labs in the morning.
[2024-07-05] MEDS: MAGNESIUM OXIDE 400 MG TAB PO SCH (12:06)
[2024-07-05] MEDS: MAGNESIUM SULFATE-D5W PMX 1 GM in DEXTROSE/WATER 1 100ML.BAG IVPB ONE (13:58)
--- NOTE | 2024-07-05 14:37 | P.PN ---
Subjective Progress Note Date: 07/05/24 74-year-old female with PMH of asthma, GERD, hyperlipidemia, hypertension, hiatal hernia, who was scheduled to undergo surgery to repair hiatal hernia today, however surgery was canceled due to her hyponatremia. She has her surgery tentatively rescheduled for 07/03/24. Patient reports absence of fever, chills, weight loss, chest pain, palpitations, diaphoresis, dyspnea, cough, nausea, vomiting, constipation, diarrhea, abdominal pain, weakness, myalgia, dizziness, headache, and dysuria. Internal medicine was consulted for medical management. 07/01 - She is seen at bedside this morning. No acute events overnight, no acute complaints this morning. Recheck sodium at midnight showed an increase to 126 from 124. Sodium this morning shown to be 131. 07/02 - She is seen and examined at bedside this morning. No acute events overnight. Her sodium had corrected nicely up to 131, she was considered medically optimized for surgery. Plan is for her to undergo surgery this morning. 07/03 - She is seen and examined at bedside this morning. No acute events overnight. She underwent surgical repair of her hiatal hernia yesterday, without any complications. She is endorsing normal postsurgical pain/discomfort today. 07/04 - She seen and examined at bedside this morning. No acute events overnight. She is endorsing normal postsurgical pain/discomfort today, however notes improved from yesterday. 07/05 - more hypoxemic overnight requiring 4L NC. CXR performed shows atelectasis. REVIEW OF SYSTEMS: Pertinent positives and negatives noted in HPI. Physical Exam: General: nontoxic, no distress, appears at stated age Derm: warm, dry, intact Head: atraumatic, normocephalic, symmetric Eyes: EOMI, anicteric sclera Mouth: no lip lesion, mucus membranes moist Cardiovascular: S1 S2 reg, no murmur, rubs, or gallops Lungs: CTA bilateral, no rales, no accessory muscle use Abdominal: soft, non-tender to palpataion, no appreciable organomegaly Extremities: no gross muscle atrophy, no edema, no contractures Neuro: Alert, Oriented, CNII-XII grossly intact, gait normal Psych: well appearing, appropriate affect Data Received Today: Labs: Sodium 132, potassium 4.0, BUN 6, creatinine 0.55, calcium 8.1 Imagining: No new imaging today. Assessment and plan 74-year-old female with PMH of asthma, GERD, hyperlipidemia, hypertension, hiatal hernia, who was scheduled to undergo surgery to repair hiatal hernia today, however surgery was canceled due to her hyponatremia. She had her surgery completed on 07/02/24. #Acute Hypoxemic Respiratory Failure - oxygen PRN - encourage IS use - encourage ambulation as tolerated with nursing supervision - no indication for abx at this time; cephied 4 plex reviewed and negative #Hypovolemic, hyponatremia -Nephrology consulted -Switch to NS at 75 cc/h -Monitor BMP closely -Urine osmolality 234, urine sodium ordered <20 -Serum osmolality 271 #Constipation -Initiate MiraLAX daily #Normocytic anemia -Continue monitor CBC -Reticulocyte count 1.09 #Nasal congestion -Initiated on Sudafed 30 mg p.o. every 6 hours as needed Chronic Medical Conditions #Essential hypertension -Resume home Lisinopril 5 mg daily #Hyperlidemia -Resume home Atorvastatin 40 mg daily #GERD -Resume home pantoprazole 40mg daily #Anxiety/Depression -Resume home Celexa 40 mg daily #Hiatal hernia repair -Surgery completed on 07/02 -Pain management and DVT prophylaxis per primary surgical team - Encourage use of incentive spirometer NSQIP risk assessment: -Risk of any complication: 17.8% -Cardiac application: 1.0% -: 2.3% -Patient medically optimized for surgery She is medically optimized for discharge at this time. Will continue to follow for the duration of her stay. Thank you very much for this consult. DVT ppx: SCDs Code status: Full code F: NS at 75 cc/h E: Replete as needed N: N.p.o. for surgery A: Ambulatory at baseline Anticipated discharge place: Home Anticipated discharge time: Pending clinical course Dictation was produced using [employer] dictation software. please excuse any grammatical, word or spelling errors. Objective - Vital Signs Vital signs: Vital Signs Temp 97.3 F L 07/05/24 11:31 Pulse 83 07/05/24 11:31 Resp 16 07/05/24 11:31 BP 113/68 07/05/24 11:31 Pulse Ox 96 07/05/24 11:31 FiO2 Intake & Output 07/04/24 07/05/24 07/05/24 18:59 06:59 18:59 Intake Total 240 Output Total 275 Balance -35 Intake: Oral 240 Output: Urine 200 Post Void Residual 75 Other: Voiding Method Bedside Commode Bedside Commode Bedside Commode # Voids 1 1 - Labs CBC & Chem 7: 07/05/24 05:15 07/05/24 05:15 Labs: Abnormal Lab Results - Last 24 Hours (Table) 07/05/24 07/05/24 Range/Units 05:15 05:15 WBC 11.4 H (3.8-10.6) k/uL RBC 2.96 L (3.80-5.40) m/uL Hgb 9.3 L D (11.4-16.0) gm/dL Hct 28.3 L (34.0-46.0) % BUN 6.8 L (9.0-27.0) mg/dL BUN/Creatinine Ratio 11.33 L (12.00-20.00) Ratio Glucose 132 H (70-110) mg/dL Calcium 8.0 L (8.7-10.3) mg/dL
[2024-07-06 07:19] LABS: Glucose,Whole Blood 109 mg/dL (70-110)
[2024-07-06 07:37] VITALS: RESP 20
[2024-07-06 08:18] LABS: Basophils # (A) 0.04 X 10*3/uL (0.00-0.10); Basophils % (A) 0.5 %; Eosinophils # (A) 0.37 X 10*3/uL (0.04-0.35); Eosinophils % (A) 4.6 %; HCT 25.9 % (37.2-46.3); HGB 8.4 g/dL (12.0-15.0); Lymphocytes # (A) 1.11 X 10*3/uL (0.90-5.00); Lymphocytes % (A) 13.8 %; MCH 31.1 pg (27.0-32.0); MCHC 32.4 g/dL (32.0-37.0); MCV 95.9 FL (80.0-97.0); Mean Platelet Volume 9.3 FL (9.5-12.2); Monocytes # (A) 0.85 X 10*3/uL (0.20-1.00); Monocytes % (A) 10.6 %; NRBC Per 100 WBC 0 X 10*3/uL (0.00-0.01); Neutrophils # (A) 5.63 X 10*3/uL (1.80-7.70); Platelet Count 284 X 10*3/uL (140-440); RDW 12.9 % (11.5-14.5); WBC 8.04 X 10*3/uL (4.50-10.00)
[2024-07-06 08:39] LABS: Blood Urea Nitrogen 6.3 mg/dL (9.0-27.0); Calcium 8.1 mg/dL (8.7-10.3); Carbon Dioxide 29.3 mmol/L (21.6-31.8); Chloride 101 mmol/L (96-109); Glucose 100 mg/dL (70-110); Magnesium 1.9 mg/dL (1.5-2.4); Potassium 3.6 mmol/L (3.5-5.5); Sodium 136 mmol/L (135-145)
--- NOTE | 2024-07-06 10:53 | P.PN ---
Subjective Patient is seen in follow-up for hyponatremia. Sodium level stable at 136 today. Off IV fluids. Oral intake gradually improving. Has been voiding. Vital signs are stable. General: No acute distress. HEENT: Head exam is unremarkable. On nasal cannula. LUNGS: No audible rhonchi or wheezes. HEART: Rate and Rhythm are regular. ABDOMEN: Mild generalized tenderness. EXTREMITITES: No edema. Objective - Vital Signs Vital signs: Vital Signs Temp 98.2 F 07/06/24 07:18 Pulse 86 07/06/24 07:18 Resp 20 07/06/24 07:18 BP 137/73 07/06/24 07:18 Pulse Ox 99 07/06/24 07:18 FiO2 Intake & Output 07/05/24 07/06/24 07/06/24 18:59 06:59 18:59 Other: Voiding Method Bedside Commode Bedside Commode # Voids 1 - Labs CBC & Chem 7: 07/06/24 04:35 07/06/24 04:35 Labs: Abnormal Lab Results - Last 24 Hours (Table) 07/05/24 07/06/24 07/06/24 Range/Units 05:15 04:35 04:35 RBC 2.70 L (4.10-5.20) X 10*6/uL Hgb 8.4 L (12.0-15.0) g/dL Hct 25.9 L (37.2-46.3) % MPV 9.3 L (9.5-12.2) FL Eosinophils # 0.37 H (0.04-0.35) X 10*3/uL BUN 6.8 L 6.3 L (9.0-27.0) mg/dL BUN/Creatinine Ratio 11.33 L 10.50 L (12.00-20.00) Ratio Glucose 132 H (70-110) mg/dL Calcium 8.0 L 8.1 L (8.7-10.3) mg/dL Assessment and Plan Plan: Assessment: 1. Hypovolemic hyponatremia improved with normal saline. Sodium level stable at 136 today. Urine sodium less than 20 and urine osmolality 234. 2. 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 3. History of anxiety and depression maintained on Celexa. Plan: Discontinue salt tab. Encouraged oral intake. Repeat BMP and magnesium level 2 to 3 days postdischarge. Follow-up outpatient in 1 week.
--- NOTE | 2024-07-06 11:17 | P.PN ---
Subjective Progress Note Date: 07/06/24 74-year-old female with PMH of asthma, GERD, hyperlipidemia, hypertension, hiatal hernia, who was scheduled to undergo surgery to repair hiatal hernia today, however surgery was canceled due to her hyponatremia. She has her surgery tentatively rescheduled for 07/03/24. Patient reports absence of fever, chills, weight loss, chest pain, palpitations, diaphoresis, dyspnea, cough, nausea, vomiting, constipation, diarrhea, abdominal pain, weakness, myalgia, dizziness, headache, and dysuria. Internal medicine was consulted for medical management. 07/01 - She is seen at bedside this morning. No acute events overnight, no acute complaints this morning. Recheck sodium at midnight showed an increase to 126 from 124. Sodium this morning shown to be 131. 07/02 - She is seen and examined at bedside this morning. No acute events overnight. Her sodium had corrected nicely up to 131, she was considered medically optimized for surgery. Plan is for her to undergo surgery this morning. 07/03 - She is seen and examined at bedside this morning. No acute events overnight. She underwent surgical repair of her hiatal hernia yesterday, without any complications. She is endorsing normal postsurgical pain/discomfort today. 07/04 - She seen and examined at bedside this morning. No acute events overnight. She is endorsing normal postsurgical pain/discomfort today, however notes improved from yesterday. 07/05 - more hypoxemic overnight requiring 4L NC. CXR performed shows atelectasis. 07/06 - She was seen and examined at bedside this morning. No acute events overnight and no new complaints today. REVIEW OF SYSTEMS: Pertinent positives and negatives noted in HPI. Physical Exam: General: nontoxic, no distress, appears at stated age Derm: warm, dry, intact Head: atraumatic, normocephalic, symmetric Eyes: EOMI, anicteric sclera Mouth: no lip lesion, mucus membranes moist Cardiovascular: S1 S2 reg, no murmur, rubs, or gallops Lungs: CTA bilateral, no rales, no accessory muscle use Abdominal: soft, non-tender to palpataion, no appreciable organomegaly Extremities: no gross muscle atrophy, no edema, no contractures Neuro: Alert, Oriented, CNII-XII grossly intact, gait normal Psych: well appearing, appropriate affect Data Received Today: Labs: Imagining: No new imaging today. Assessment and plan 74-year-old female with PMH of asthma, GERD, hyperlipidemia, hypertension, hiatal hernia, who was scheduled to undergo surgery to repair hiatal hernia today, however surgery was canceled due to her hyponatremia. She had her surgery completed on 07/02/24. #Acute Hypoxemic Respiratory Failure, resolved -oxygen PRN -encourage IS use -encourage ambulation as tolerated with nursing supervision -no indication for abx at this time; cephied 4 plex reviewed and negative #Hypovolemic, hyponatremia -Nephrology consulted -Monitor BMP closely -Per nephrology recommendation initiated on sodium chloride tabs 1 g p.o. daily -Urine osmolality 234, urine sodium ordered <20 -Serum osmolality 271 #Constipation -Initiate MiraLAX daily #Normocytic anemia -Continue monitor CBC -Reticulocyte count 1.09 #Nasal congestion -Initiated on Sudafed 30 mg p.o. every 6 hours as needed Chronic Medical Conditions #Essential hypertension -Resume home Lisinopril 5 mg daily #Hyperlidemia -Resume home Atorvastatin 40 mg daily #GERD -Resume home pantoprazole 40mg daily #Anxiety/Depression -Resume home Celexa 40 mg daily #Hiatal hernia repair -Surgery completed on 07/02 -Pain management and DVT prophylaxis per primary surgical team - Encourage use of incentive spirometer NSQIP risk assessment: -Risk of any complication: 17.8% -Cardiac application: 1.0% -: 2.3% -Patient medically optimized for surgery She is medically optimized for discharge at this time. Will continue to follow for the duration of her stay. Thank you very much for this consult. DVT ppx: SCDs Code status: Full code F: None E: Replete as needed N: N.p.o. for surgery A: Ambulatory at baseline Anticipated discharge place: Home Anticipated discharge time: Pending clinical course Dictation was produced using [employer] dictation software. please excuse any grammatical, word or spelling errors. Hermes Markham MD PGY-1 IM I saw and evaluated the patient during the king and critical portions of this encounter, and discussed the case in detail with the resident author of this note, I agree with the Assessment and Plan, and my changes, if any, are highlighted in blue. Objective - Vital Signs Vital signs: Vital Signs Temp 98.3 F 07/06/24 01:20 Pulse 87 07/06/24 01:20 Resp 18 07/06/24 01:20 BP 130/79 07/06/24 01:20 Pulse Ox 97 07/06/24 01:20 FiO2 Intake & Output 07/05/24 07/06/24 07/06/24 18:59 06:59 18:59 Other: Voiding Method Bedside Commode Bedside Commode # Voids 1 - Labs CBC & Chem 7: 07/06/24 04:35 07/06/24 04:35 Labs: Abnormal Lab Results - Last 24 Hours (Table) 07/05/24 Range/Units 05:15 BUN 6.8 L (9.0-27.0) mg/dL BUN/Creatinine Ratio 11.33 L (12.00-20.00) Ratio Glucose 132 H (70-110) mg/dL Calcium 8.0 L (8.7-10.3) mg/dL
--- NOTE | 2024-07-06 12:18 | P.DS ---
Providers Date of admission: 07/01/24 10:37 Expected date of discharge: 07/06/24 Attending physician: Lincoln Styles DO Consults: 06/30/24 15:37 Consult Physician Routine Consulting Provider: Mc Gutierres Consult Reason/Comments: Medical Management Do you want consulting provider notified?: Yes 06/30/24 15:38 Consult Physician Routine Consulting Provider: Catherine Mathur Consult Reason/Comments: Hyponatremia Do you want consulting provider notified?: Yes Primary care physician: Dayana Lyon MD Hospital Course: Discharge diagnosis 1. Paraesophageal hernia Hospital course This is a 74-year-old female with paraesophageal hernia. She is status post robotic hiatal hernia repair with mesh and robotic JOAQUIN fundoplication. Patient tolerated surgery well. Her pain is controlled. She is having flatus and bowel movement. She is tolerating a clear liquid diet. She has been up and ambulating. She is afebrile. She has worked with physical therapy. She is scheduled for discharge to ECF today. She is stable for discharge. Please refer to chart for any further details. Physician Journeyman Level Acoustic Analyst note has been reviewed by physician. Signing provider agrees with the documented findings, assessment, and plan of care. Attestation Patient presented secondary to plan for elective robotic hiatal hernia repair with mesh placement. On initial evaluation, patient was noted to be hyponatremic and she was admitted for treatment of this and then was taken to operating room once cleared by anesthesia. Postoperatively, patient has done well and progressed well. She is increasing activity and tolerating clear liquid diet. She has been followed by medicine team and found to have some atelectasis with incentive spirometer as treatment. Plan for discharge to ECF. Follow-up as outpatient. Recommend clear liquid diet for 1 week on discharge. Shannon Jain DO Patient Condition at Discharge: Stable Plan - Discharge Summary Discharge Rx Participant: No New Discharge Prescriptions: New Omeprazole 20 mg PO BID #60 cap HYDROcodone/APAP 7.5-325MG [[employer] 7.5-325] 1 tab PO Q6HR PRN 3 Days #12 tab PRN Reason: Pain Continue Citalopram Hydrobromide [CeleXA] 40 mg PO DAILY prednisoLONE ACETATE 1% OPHTH [Pred Forte 1%] 1 drops BOTH EYES BID Calcium Carbonate [Calcium] 600 mg PO DAILY Aspirin 81 mg PO DAILY #30 tab Atorvastatin [Lipitor] 40 mg PO HS #30 tab lisinopriL [Zestril] 5 mg PO DAILY Acetaminophen Tab [Tylenol] 650 mg PO Q6HR PRN tab PRN Reason: Fever And/ Or Pain Ferrous Sulfate [Iron] 325 mg PO DAILY Discontinued Pantoprazole [Protonix] 40 mg PO AC-BRKFST #30 tab Discharge Medication List Citalopram Hydrobromide [CeleXA] 40 mg PO DAILY 10/13/15 [History] lisinopriL [Zestril] 5 mg PO DAILY 09/11/23 [History] Calcium Carbonate [Calcium] 600 mg PO DAILY 05/19/24 [History] prednisoLONE ACETATE 1% OPHTH [Pred Forte 1%] 1 drops BOTH EYES BID 05/19/24 [History] Acetaminophen Tab [Tylenol] 650 mg PO Q6HR PRN tab 05/25/24 [Rx] Aspirin 81 mg PO DAILY #30 tab 05/25/24 [Rx] Atorvastatin [Lipitor] 40 mg PO HS #30 tab 05/25/24 [Rx] Ferrous Sulfate [Iron] 325 mg PO DAILY 06/25/24 [History] Omeprazole 20 mg PO BID #60 cap 07/02/24 [Rx] HYDROcodone/APAP 7.5-325MG [[employer] 7.5-325] 1 tab PO Q6HR PRN 3 Days #12 tab 07/06/24 [Rx] Follow up Appointment(s)/Referral(s): Lincoln Styles DO [Medical Doctor] - 07/14/24 10:15 am Fortino Manzo DO [STAFF PHYSICIAN] - 1 Week Patient Instructions/Handouts: Omeprazole (By mouth) Activity/Diet/Wound Care/Special Instructions: BMP and CBC 2-[address] while taking [employer] No lifting over 10 pounds You may shower. No soaking or tub baths for 2 weeks Continue a clear liquid diet until July 09 and then increase diet to full liquids x 1 week No straws or carbonated beverages Discharge Disposition: TRANSFER TO SNF/ECF
[2024-07-06 12:49] VITALS: BP 105/53; PULSE 84; TEMP 97.3
== END 2024-07-06 14:33 | DRG 981 ==
LOC: OR 10:21 → 5NMEDONC 13:55 → OR 07-01 10:37
PROVIDERS: ADMIT Surgery; ATTEND Surgery
PROC: 0DV44ZZ Restriction of Esophagogastric Junction, Percutaneous Endoscopic Approach (ICD-10-PCS; 2024-07-02)
PROC: 8E0W4CZ Robotic Assisted Procedure of Trunk Region, Percutaneous Endoscopic Approach (ICD-10-PCS; 2024-07-02)
PROC: 0BUT4JZ Supplement Diaphragm with Synthetic Substitute, Percutaneous Endoscopic Approach (ICD-10-PCS; principal; 2024-07-02 08:15)
DX: E87.1 Hypo-osmolality and hyponatremia (principal); J96.01 Acute respiratory failure with hypoxia; I10 Essential (primary) hypertension; J45.909 Unspecified asthma, uncomplicated; F32.A Depression, unspecified; D64.9 Anemia, unspecified; Z11.52 Encounter for screening for COVID-19; K44.9 Diaphragmatic hernia without obstruction or gangrene; E78.5 Hyperlipidemia, unspecified; K21.9 Gastro-esophageal reflux disease without esophagitis; F41.9 Anxiety disorder, unspecified; M54.9 Dorsalgia, unspecified; D72.829 Elevated white blood cell count, unspecified; E86.1 Hypovolemia; K59.00 Constipation, unspecified; Z79.82 Long term (current) use of aspirin; Z79.899 Other long term (current) drug therapy; K58.9 Irritable bowel syndrome, unspecified; G89.29 Other chronic pain; Z87.01 Personal history of pneumonia (recurrent); Z88.1 Allergy status to other antibiotic agents; Z88.8 Allergy status to other drugs, medicaments and biological substances; Z98.51 Tubal ligation status
CPT/HCPCS: 71045; 80048; 83735; 83930; 83935; 84295; 84300; 85025; 85027; 85045; 87636

== ENCOUNTER 2024-07-25 07:13 | Emergency (ER) | payer MEDICARE, BC ==
[2024-07-25 07:20] VITALS: TEMP 97
[2024-07-25 07:50] LABS: Basophils # (A) 0.11 10*3/uL (0.00-0.10); Basophils % (A) 1.2 %; Eosinophils # (A) 0.13 10*3/uL (0.04-0.35); Eosinophils % (A) 1.4 %; HCT 32.6 % (37.2-46.3); Lymphocytes # (A) 1.58 10*3/uL (0.90-5.00); Lymphocytes % (A) 16.6 %; MCH 31.6 pg (27.0-32.0); MCHC 33.7 g/dL (32.0-37.0); MCV 93.7 fL (80.0-97.0); Mean Platelet Volume 9.1 fL (9.5-12.2); Monocytes # (A) 0.66 10*3/uL (0.20-1.00); Monocytes % (A) 6.9 %; Neutrophils # (A) 7.02 10*3/uL (1.80-7.70); Neutrophils % (A) 73.5 %; Platelet Count 558 10*3/uL (140-440); RBC 3.48 10*6/uL (4.10-5.20); RDW 13.2 % (11.5-14.5); WBC 9.54 10*3/uL (4.50-10.00)
[2024-07-25 08:06] LABS: ALT 19 U/L (4-34); AST 28 U/L (14-36); African American GFR (CKD) >90 (>60 ml/min/1.73 sqM); Albumin 3.9 g/dL (3.5-5.0); Alkaline Phosphatase 74 U/L (38-126); Anion Gap 7 mmol/L; Blood Urea Nitrogen 15 mg/dL (7-17); Carbon Dioxide 25 mmol/L (22-30); Chloride 103 mmol/L (98-107); Glucose 96 mg/dL (74-99); Lipase 908 U/L (23-300); Non-African American GFR(CKD) 89 (>60 ml/min/1.73 sqM); Potassium 4.3 mmol/L (3.5-5.1); Sodium 135 mmol/L (137-145); Total Bilirubin 0.7 mg/dL (0.2-1.3); Total Protein 6.7 g/dL (6.3-8.2)
[2024-07-25] MEDS: SODIUM CHLORIDE 0.9% 500 ML 500 ML IV ONE (08:10)
[2024-07-25] MEDS: MORPHINE SULFATE 4 MG/ML SYRINGE IVP STA (08:10)
[2024-07-25 09:07] LABS: Appearance,Urine Cloudy (Clear); Bacteria,Urine Rare /hpf; Bilirubin,Urine Negative (Negative); Blood,Urine Negative (Negative); Color,Urine Colorless; Glucose,Urine (UA) Negative (Negative); Ketones,Urine Negative (Negative); Leukocyte Esterase,Urine Negative (Negative); Mucus,Urine Rare /hpf; Nitrite,Urine Negative (Negative); Protein,Urine Negative (Negative); RBC,Urine 2 /hpf (0-5); Specific Gravity,Urine 1.013 (1.001-1.035); Squamous Epithelial Cell,Urine <1 /hpf (0-4); Urobilinogen,Urine <2.0 mg/dL (<2.0); WBC,Urine <1 /hpf (0-5)
--- NOTE | 2024-07-25 09:18 | CT ---
EXAMINATION TYPE: CT abdomen pelvis w con CT DLP: 362.6 mGycm, Automated exposure control for dose reduction was used. DATE OF EXAM: 07/25/2024 9:03 AM COMPARISON: CT abdomen pelvis 05/21/2024 CLINICAL INDICATION:Female, 74 years old with history of abd pain, guarding, no flatus; abd pain, gua rding, no flatus, recent hernia repair sx. TECHNIQUE: Standard CT of the abdomen and pelvis following the administration of 100 cc of Isovue 3 00 IV contrast material. Coronal and sagittal reformats were performed. FINDINGS: LOWER CHEST: Small left pleural effusion with associated compressive atelectasis. ABDOMEN LIVER: Inferior left hepatic lobe 1.0 cm cyst. GALLBLADDER AND BILE DUCTS: Lithiasis. No biliary ductal dilatation. PANCREAS: Unremarkable. SPLEEN: Unremarkable. ADRENAL GLANDS: Unremarkable. KIDNEYS AND URETERS: No evidence of hydronephrosis or renal calculus. The kidneys enhance symmetrical ly. Contrast is demonstrated within both collecting systems and proximal ureters on the delayed phase . Retroaortic left renal vein. PELVIS BLADDER: Incompletely distended but grossly unremarkable. REPRODUCTIVE: Unremarkable. ABDOMEN & PELVIS STOMACH AND BOWEL: Postsurgical changes from hiatal hernia repair with some mild circumferential wall thickening at the GE junction. Diverticulum involving the third portion of the duodenum.Scattered co lonic diverticulosis without evidence for acute diverticulitis. The appendix is within normal limits. No evidence of bowel obstruction. PERITONEUM: No evidence of pneumoperitoneum or free fluid. Presacral edema. VASCULATURE: No evidence of aortic aneurysm. Few pelvic phleboliths. MUSCULOSKELETAL: No acute osseous abnormalities LYMPH NODES: No evidence for lymphadenopathy. SOFT TISSUE/ABDOMINAL WALL: Unremarkable IMPRESSION: 1. Postsurgical changes from hiatal hernia repair with some mild wall thickening involving the GE ju nction. May relate to recent surgery versus an infectious/inflammatory process. 2. Cholelithiasis. 3. Colonic diverticulosis without evidence for acute diverticulitis. 4. Small left pleural effusion with associated compressive atelectasis. [facility], , 07/25/2024 9:15 AM
--- NOTE | 2024-07-25 11:34 | ED ---
Abdominal Pain HPI - General Chief Complaint: Abdominal Pain Stated Complaint: Abd pain Time Seen by Provider: 07/25/24 07:20 Source: patient, EMS Mode of arrival: EMS - History of Present Illness Initial Comments: 74-year-old female with past medical history of asthma, reflux, hypertension, hyperlipidemia who presents emergency department from [facility]. Patient recently had hiatal hernia surgery and was transferred there for rehab. Reports that for the past couple of days she has had lower abdominal pain with intermittent cramping. She has not been able to have a bowel movement and has not been passing much gas. The patient is taking Washington for pain control. She is prescribed several cathartics however it does not appear that the patient has been receiving them. She did have milk of mag 2 days ago and was able to go a small amount. She has not had any vomiting. Denies any fevers. No history of bowel obstruction. No other alleviating, precipitating or modifying factors - Related Data Home Medications Medication Instructions Recorded Confirmed Citalopram Hydrobromide [CeleXA] 40 mg PO DAILY 10/13/15 06/30/24 lisinopriL [Zestril] 5 mg PO DAILY 09/11/23 06/30/24 Calcium Carbonate [Calcium] 600 mg PO DAILY 05/19/24 06/25/24 prednisoLONE ACETATE 1% OPHTH 1 drops BOTH EYES BID 05/19/24 06/30/24 [Pred Forte 1%] Ferrous Sulfate [Iron] 325 mg PO DAILY 06/25/24 06/25/24 Previous Rx's Medication Instructions Recorded Acetaminophen Tab [Tylenol] 650 mg PO Q6HR PRN tab 05/25/24 Aspirin 81 mg PO DAILY #30 tab 05/25/24 Atorvastatin [Lipitor] 40 mg PO HS #30 tab 05/25/24 Omeprazole 20 mg PO BID #60 cap 07/02/24 HYDROcodone/APAP 7.5-325MG [Washington 1 tab PO Q6HR PRN 3 Days #12 tab 07/06/24 7.5-325] Allergies Allergy/AdvReac Type Severity Reaction Status Date / Time clarithromycin [From Biaxin] AdvReac Unknown Verified 07/25/24 07:20 metronidazole [From Flagyl] AdvReac Unknown Verified 07/25/24 07:20 Review of Systems ROS Statement: Those systems with pertinent positive or pertinent negative responses have been documented in the HPI. ROS Other: All systems not noted in ROS Statement are negative. Past Medical History Past Medical History: Asthma, GERD/Reflux, Hyperlipidemia, Hypertension, Pneumonia Additional Past Medical History / Comment(s): Bronchitis, small hiatal hernia, constipation, IBS, occasional UTIs, chronic back pain. History of Any Multi-Drug Resistant Organisms: None Reported Past Surgical History: Tonsillectomy, Tubal Ligation Additional Past Surgical History / Comment(s): EGD, colonoscopies Past Anesthesia/Blood Transfusion Reactions: No Reported Reaction Additional Past Anesthesia/Blood Transfusion Reaction / Comment(s): per sister can be a little melodramatic Past Psychological History: Anxiety, Depression Smoking Status: Never smoker Past Alcohol Use History: Occasional Past Drug Use History: None Reported - Past Family History Mother History Unknown: Yes Additional Family Medical History / Comment(s): Mother is Father History Unknown: Yes Additional Family Medical History / Comment(s): Father is . General Exam General appearance: alert, in no apparent distress Head exam: Present: atraumatic, normocephalic, normal inspection Eye exam: Present: normal appearance, PERRL, EOMI. Absent: scleral icterus, conjunctival injection, periorbital swelling ENT exam: Present: normal exam, mucous membranes moist Neck exam: Present: normal inspection. Absent: tenderness, meningismus, lymphadenopathy Respiratory exam: Present: normal lung sounds bilaterally. Absent: respiratory distress, wheezes, rales, rhonchi, stridor Cardiovascular Exam: Present: regular rate, normal rhythm, normal heart sounds. Absent: systolic murmur, diastolic murmur, rubs, gallop, clicks GI/Abdominal exam: Present: soft, tenderness (Lower suprapubic region), normal bowel sounds. Absent: distended, guarding, rebound, rigid Extremities exam: Present: normal inspection, full ROM, normal capillary refill. Absent: tenderness, pedal edema, joint swelling, calf tenderness Back exam: Present: normal inspection Neurological exam: Present: alert, oriented X3, CN II-XII intact Psychiatric exam: Present: normal affect, normal mood Skin exam: Present: warm, dry, intact, normal color. Absent: rash Course Vital Signs 07/25/24 07/25/24 07:16 11:58 Temperature 97.0 F L Pulse Rate 84 70 Respiratory 18 17 Rate Blood Pressure 136/85 117/65 O2 Sat by Pulse 100 98 Oximetry Medical Decision Making - Medical Decision Making Was pt. sent in by a medical professional or institution (CHANI Greenberg, BRAND ATTENDANT, urgent care, hospital, or fci...) When possible be specific @ -No Did you speak to anyone other than the patient for history (EMS, parent, family, police, friend...)? What history was obtained from this source @ -I spoke with the patient's sisters in regards to the patient's care. States that they feel rehab has not been addressing the patient's bowel movements Did you review nursing and triage notes (agree or disagree)? Why? @ -I reviewed and agree with nursing and triage notes Were old charts reviewed (outside hosp., previous admission, EMS record, old EKG, old radiological studies, urgent care reports/EKG's, fci records)? Report findings @ -I reviewed the discharge summary from July 06 when the patient was discharged from the hospital after hiatal hernia surgery. She was discharged home on Washington Differential Diagnosis (chest pain, altered mental status, abdominal pain women, abdominal pain men, vaginal bleeding, weakness, fever, dyspnea, syncope, headache, dizziness, GI bleed, back pain, seizure, CVA, palpatations, mental health, musculoskeletal)? @ -Differential Abdominal Pain Women: Appendicitis, Cholecystitis, diverticulosis, ischemic bowel, pancreatitis, hepatitis, UTI, gastroenteritis, AAA, incarcerated hernia, bowel obstruction, constipation, inflammatory bowel, hepatitis, peptic ulcer disease, splenic infarction, perforated viscus, vulvitis, ovarian torsion, PID, kidney stone, placenta abruption, this is not meant to be an all-inclusive list EKG interpreted by me (3pts min.). @ -Not done X-rays interpreted by me (1pt min.). @ -None done CT interpreted by me (1pt min.). @ -Yes and demonstrates postsurgical changes without acute process U/S interpreted by me (1pt. min.). @ -None done What testing was considered but not performed or refused? (CT, X-rays, U/S, labs)? Why? @ -None What meds were considered but not given or refused? Why? @ -None Did you discuss the management of the patient with other professionals (professionals i.e. , CHANI, BRAND ATTENDANT, lab, RT, psych nurse, social science professor, motor carrier inspector, teacher, property and supply officer, continuous pillowcase cutter)? Give summary @ -No Was smoking cessation discussed for >3mins.? @ -No Was critical care preformed (if so, how long)? @ -No Were there social determinants of health that impacted care today? How? (Homelessness, low income, unemployed, alcoholism, drug addiction, transportation, low edu. Level, literacy, decrease access to med. care, fdc, rehab)? @ -No Was there de-escalation of care discussed even if they declined (Discuss DNR or withdrawal of care, Hospice)? DNR status @ -No What co-morbidities impacted this encounter? (DM, HTN, Smoking, COPD, CAD, Cancer, CVA, ARF, Chemo, Hep., AIDS, mental health diagnosis, sleep apnea, morbid obesity)? @ -History of hiatal hernia repair Was patient admitted / discharged? Hospital course, mention meds given and route, prescriptions, significant lab abnormalities, going to OR and other pertinent info. @ -Upon arrival patient seen and evaluated in bed 19. Thorough history and physical exam was performed. IV access was established. Laboratory studies are conducted. CT was performed. Discussed results with the patient and her family at bedside. I feel the patient needs more bowel stimulation. Family does agree with this. They state that the patient has not been drinking much water or getting up and moving. She also has been taking the [place] without any laxatives. I did recommend magnesium citrate. Patient will be discharged home with this. I also recommend MiraLAX daily until the patient has smooth bowel movements. She is to follow-up with her surgeon at her scheduled postop appointment or return for any new or worsening symptoms. Patient and her family were in agreement with this plan the patient was discharged home in stable condition Undiagnosed new problem with uncertain prognosis? @ -No Drug Therapy requiring intensive monitoring for toxicity (Heparin, Nitro, Insulin, Cardizem)? @ -No Were any procedures done? @ -No Diagnosis/symptom? @ -Acute abdominal pain, acute constipation, recent hiatal hernia repair, opiate use Acute, or Chronic, or Acute on Chronic? @ -Acute Uncomplicated (without systemic symptoms) or Complicated (systemic symptoms)? @ -Complicated Side effects of treatment? @ -No Exacerbation, Progression, or Severe Exacerbation? @ -No Poses a threat to life or bodily function? How? (Chest pain, [place], [place], pneumonia, PE, COPD, DKA, ARF, appy, cholecystitis, CVA, Diverticulitis, Homicidal, Suicidal, threat to staff... and all critical care pts) @ -No - Lab Data Result diagrams: 07/25/24 07:39 07/25/24 07:39 Lab Results 07/25/24 07/25/24 07/25/24 Range/Units 07:39 07:39 07:39 WBC 9.54 (4.50-10.00) 10*3/uL RBC 3.48 L (4.10-5.20) 10*6/uL Hgb 11.0 L (12.0-15.0) g/dL Hct 32.6 L (37.2-46.3) % MCV 93.7 (80.0-97.0) fL MCH 31.6 (27.0-32.0) pg MCHC 33.7 (32.0-37.0) g/dL Plt Count 558 H (140-440) 10*3/uL MPV 9.1 L (9.5-12.2) fL Immature Gran % (Auto) 0.4 % Neutrophils % 73.5 % Lymphocytes % 16.6 % Monocytes % 6.9 % Eosinophils % 1.4 % Basophils % 1.2 % Immature Gran # 0.04 (0.00-0.04) 10*3/uL Neutrophils # 7.02 (1.80-7.70) 10*3/uL Lymphocytes # 1.58 (0.90-5.00) 10*3/uL Monocytes # 0.66 (0.20-1.00) 10*3/uL Eosinophils # 0.13 (0.04-0.35) 10*3/uL Basophils # 0.11 H (0.00-0.10) 10*3/uL Sodium 135 L (137-145) mmol/L Potassium 4.3 (3.5-5.1) mmol/L Chloride 103 (98-107) mmol/L Carbon Dioxide 25 (22-30) mmol/L Anion Gap 7 mmol/L BUN 15 (7-17) mg/dL Creatinine 0.63 (0.52-1.04) mg/dL Est GFR (CKD-EPI)AfAm >90 (>60 ml/min/1.73 sqM) Est GFR (CKD-EPI)NonAf 89 (>60 ml/min/1.73 sqM) Glucose 96 (74-99) mg/dL Plasma Lactic Acid Calin 1.6 (0.7-2.0) mmol/L Calcium 10.0 (8.4-10.2) mg/dL Total Bilirubin 0.7 (0.2-1.3) mg/dL AST 28 (14-36) U/L ALT 19 (4-34) U/L Alkaline Phosphatase 74 (38-126) U/L Total Protein 6.7 (6.3-8.2) g/dL Albumin 3.9 (3.5-5.0) g/dL Lipase 908 H (23-300) U/L Urine Color Urine Appearance (Clear) Urine pH (5.0-8.0) Ur Specific [place] (1.001-1.035) Urine Protein (Negative) Urine Glucose (UA) (Negative) Urine Ketones (Negative) Urine Blood (Negative) Urine Nitrite (Negative) Urine Bilirubin (Negative) Urine Urobilinogen (<2.0) mg/dL Ur Leukocyte Esterase (Negative) Urine RBC (0-5) /hpf Urine WBC (0-5) /hpf Ur Squamous Epith Cells (0-4) /hpf Urine Bacteria (None) /hpf Urine Mucus (None) /hpf // Range/Units 08:30 WBC (4.50-10.00) 10*3/uL RBC (4.10-5.20) 10*6/uL Hgb (12.0-15.0) g/dL Hct (37.2-46.3) % MCV (80.0-97.0) fL MCH (27.0-32.0) pg MCHC (32.0-37.0) g/dL Plt Count (140-440) 10*3/uL MPV (9.5-12.2) fL Immature Gran % (Auto) % Neutrophils % % Lymphocytes % % Monocytes % % Eosinophils % % Basophils % % Immature Gran # (0.00-0.04) 10*3/uL Neutrophils # (1.80-7.70) 10*3/uL Lymphocytes # (0.90-5.00) 10*3/uL Monocytes # (0.20-1.00) 10*3/uL Eosinophils # (0.04-0.35) 10*3/uL Basophils # (0.00-0.10) 10*3/uL Sodium (137-145) mmol/L Potassium (3.5-5.1) mmol/L Chloride (98-107) mmol/L Carbon Dioxide (22-30) mmol/L Anion Gap mmol/L BUN (7-17) mg/dL Creatinine (0.52-1.04) mg/dL Est GFR (CKD-EPI)AfAm (>60 ml/min/1.73 sqM) Est GFR (CKD-EPI)NonAf (>60 ml/min/1.73 sqM) Glucose (74-99) mg/dL Plasma Lactic Acid Calin (0.7-2.0) mmol/L Calcium (8.4-10.2) mg/dL Total Bilirubin (0.2-1.3) mg/dL AST (14-36) U/L ALT (4-34) U/L Alkaline Phosphatase (38-126) U/L Total Protein (6.3-8.2) g/dL Albumin (3.5-5.0) g/dL Lipase (23-300) U/L Urine Color Colorless Urine Appearance Cloudy H (Clear) Urine pH 8.0 (5.0-8.0) Ur Specific [place] 1.013 (1.001-1.035) Urine Protein Negative (Negative) Urine Glucose (UA) Negative (Negative) Urine Ketones Negative (Negative) Urine Blood Negative (Negative) Urine Nitrite Negative (Negative) Urine Bilirubin Negative (Negative) Urine Urobilinogen <2.0 (<2.0) mg/dL Ur Leukocyte Esterase Negative (Negative) Urine RBC 2 (0-5) /hpf Urine WBC <1 (0-5) /hpf Ur Squamous Epith Cells <1 (0-4) /hpf Urine Bacteria Rare H (None) /hpf Urine Mucus Rare H (None) /hpf Disposition Clinical Impression: Abdominal pain, Constipation Disposition: HOME SELF-CARE Condition: Stable Instructions (If sedation given, give patient instructions): Constipation (ED) Additional Instructions: Please drink half the bottle of the magnesium citrate. If you do not have a bowel movement, drink the second half. I recommend that you increase your fiber, water intake and exercise. Use a capful of MiraLAX daily to help make your bowel movements more regular. You may take this with Colace daily. Follow-up with your doctor and return to the emergency department for any new or worsening symptoms Is patient prescribed a controlled substance at d/c from ED?: No Referrals: Sen Henriquez MD [Primary Care Provider] - 1-2 days Time of Disposition: 11:34
[2024-07-25] MEDS: MAGNESIUM CITRATE 296 ML BOTTLE PO ONE (11:51)
[2024-07-25 11:59] VITALS: BP 117/65; PULSE 70; RESP 17
== END 2024-07-25 11:59 | disposition home or self-care (01) ==
LOC: EC 07:13
DX: K59.00 Constipation, unspecified (principal); F11.90 Opioid use, unspecified, uncomplicated; Z98.890 Other specified postprocedural states; Z88.8 Allergy status to other drugs, medicaments and biological substances; Z88.1 Allergy status to other antibiotic agents
CPT/HCPCS: 36415; 80053; 83605; 83690; 85025; 81001; 74177; 99285; 96374; 96361 ×4; J2270; Q9967

== ENCOUNTER → 2024-09-21 | Outpatient (CLI) | payer MEDICARE, BC ==
--- NOTE | 2024-09-21 11:32 | MM ---
Reason for Exam: Screening (asymptomatic). Last screening mammogram was performed 12 month(s) ago. Patient History: Menarche at age 17. Patient has no children. Postmenopausal. 09/26/2023, Benign US biopsy breast VAD RT on the right side. Risk Values: Nikki 5 year model risk: 2.1%. NCI Lifetime model risk: 5.2%. Prior Study Comparison: 09/04/2023 Bilateral MG 3D screening mammo w/cad, [facility]. 09/26/2023 Right MG diagnostic mammo RT wo CAD, [facility]. 03/30/2024 Right MG 3D diag mammo w/cad RT, [facility]. Tissue Density: The breasts are extremely dense, which lowers the sensitivity of mammography. Findings: Analyzed By CAD. Right breast biopsy clip. Right breast: There is no suspicious group of microcalcifications or new suspicious mass. Benign-appearing calcifications right breast. Left breast: There is no suspicious group of microcalcifications or new suspicious mass. Benign-appearing calcifications left breast. Overall Assessment: Benign, BI-RAD 2 Management: Screening Mammogram of both breasts in [address] [facility] will attempt to contact patient to return for supplemental views and ultrasound if indicated. Patient should continue monthly self-breast exams. A clinical breast exam by your physician is recommended on an annual basis. This exam should not preclude additional follow-up of suspicious palpable abnormalities. Note on Nikki scores and lifetime risk: 1. A Nikki score greater than 3% is considered moderate risk. If this is the case, consider specialist referral to assess eligibility for a risk reducing agent. 2. If overall lifetime risk for the development of breast cancer is 20% or higher, the patient may qualify for future screening with alternating mammogram and breast MRI. [facility], , 09/21/2024 11:29 AM. Electronically signed and approved by: Horace Ragsdale DO
== END | disposition home or self-care (01) ==
LOC: RADMAMWWP 11:01
PROVIDERS: ATTEND Family Medicine
DX: Z12.31 Encounter for screening mammogram for malignant neoplasm of breast (principal); R92.343 Mammographic extreme density, bilateral breasts; Z78.0 Asymptomatic menopausal state
CPT/HCPCS: 77063; 77067

== ENCOUNTER → 2024-10-07 | Outpatient (CLI) | payer MEDICARE, BC ==
[2024-10-07 14:36] LABS: African American GFR (CKD) >90 (>60 ml/min/1.73 sqM); Blood Urea Nitrogen 13 mg/dL (7-17); Non-African American GFR(CKD) 89 (>60 ml/min/1.73 sqM)
--- NOTE | 2024-10-07 15:35 | CT ---
EXAMINATION TYPE: CT abdomen w con DATE OF EXAM: 10/07/2024 COMPARISON: CT abdomen pelvis dated 07/25/2024 FINDINGS: The lung bases are clear. There are postsurgical changes involving the stomach. There is a single stable large gallstone but no gallbladder wall thickening, distention or pericholec ystic fluid. There is a small stable hepatic cyst in the left lobe of the liver. There is no biliary ductal dilatation. There is no focal mass within the pancreas, spleen or adrenal glands. There is no solid renal mass or hydronephrosis. There is a stable small cyst in the inferior pole of the left kidney. The caliber the abdominal aorta is normal is no retroperitoneal adenopathy or hemorr ralph. The bowel loops are normal in caliber and there is no evidence of dilatation or obstruction. No infla mmatory changes are identified in the bowel wall or mesentery. The osseous structures and soft tissues are intact. IMPRESSION: 1. Stable cholelithiasis. 2. No acute changes within the abdomen or pelvis. CLINICAL INDICATION: Female, 74 years old with history of R10.9 UNSPECIFIED ABDOMINAL PAIN; [facility], Hiat al hernia sx June 2024, abdominal/ left sided pain TECHNIQUE: Performed with Oral Contrast and with IV Contrast, patient injected with 100 ml mL of Isovue 300. CT DLP: [address] CTDI: mGy Automated exposure control for dose reduction was used. FINDINGS: [facility], , 10/07/2024 3:33 PM
== END | disposition home or self-care (01) ==
LOC: RADCTMAIN 13:51
PROVIDERS: ATTEND Surgery
DX: K80.20 Calculus of gallbladder without cholecystitis without obstruction (principal)
CPT/HCPCS: 82565; 84520; 74160; Q9967